=== PATIENT | male | born 1950 | race Caucasian/White ===

== ENCOUNTER 2017-05-27 20:43 | Observation (INO) ==
[2017-05-27 21:06] LABS: Basophils # 0.1 K/mcL (0.0-0.2); Basophils % 0.6 %; Eosinophils # 0.2 K/mcL (0.0-0.6); Eosinophils % 1.5 %; Hematocrit 44.9 % (37.5-50.1); Hemoglobin 14.5 g/dL (12.9-16.9); Immature Granulocytes % 0.4 % (0-4); Lymphocytes # 1.4 K/mcL (0.6-4.6); Mean Corpuscular HGB Conc 32.3 g/dL (31.6-35.5); Mean Corpuscular Hemoglobin 30.5 pg (28.0-33.3); Mean Corpuscular Volume 94.3 fL (83.0-100.0); Mean Platelet Volume 9.4 fL (9.4-12.4); Monocytes # 1.4 K/mcL (0.0-1.3); Neutrophils # 8.4 K/mcL (1.6-8.9); Platelet Count 227 K/mcL (140-400); Red Blood Count 4.76 M/mcL (4.19-5.50); Red Cell Distribution Width 13.7 % (11.5-14.5); Segmented Neutrophils % 73.5 %
[2017-05-27 21:08] LABS: INR 3.7; Prothrombin Time 40.5 Seconds (9.4-12.1)
[2017-05-27 21:10] LABS: VBG HCO3 29 mEq/L (21-27); VBG Ionized Calcium 1.14 mmol/L (1.15-1.35); VBG PCO2 50 mmHg (41-51); VBG PH 7.38 pH Units (7.32-7.42); VBG PO2 52 mmHg (25-50)
[2017-05-27 21:32] LABS: Bilirubin,Urine Negative (Negative); Blood,Urine Moderate (Negative); Clarity,Urine Clear (Clear); Color,Urine Yellow (Yellow); Glucose,Urine (UA) 250 mg/dL (Normal); Ketones,Urine Negative (Negative); Leukocyte Esterase,Urine Negative (Negative); Nitrite,Urine Negative (Negative); PH,Urine 6.5 pH Units (5.0-8.0); Protein,Urine 100 mg/dL (Neg-Trace); Specific Gravity,Urine 1.019 (1.010-1.025); Urobilinogen,Urine Normal (Normal)
[2017-05-27 21:34] LABS: Albumin 3.9 g/dL (3.5-5.7); Albumin/Globulin Ratio 1.2 (1.1-2.2); Bilirubin,Total 0.5 mg/dL (0.3-1.0); Calcium 9.5 mg/dL (8.6-10.3); Globulin 3.2 g/dL (2.4-3.5); Magnesium 1.7 mg/dL (1.6-2.6); Phosphorous 2.9 mg/dL (2.7-4.5); Potassium 3.7 mEq/L (3.5-5.1); Total Protein 7.1 g/dL (6.4-8.9)
[2017-05-27 21:35] LABS: Bacteria,Urine None Seen per hpf (None-Few); Hyaline Casts,Urine None Seen per lpf (None-Few); RBC,Urine 15-30 per hpf (0-3); Squamous Epithelial Cell,Urine None Seen per lpf (None-Few); WBC,Urine 0-3 per hpf (0-3)
--- NOTE | 2017-05-27 21:57 | Emergency Department Note ---
Disposition Clinical Impression: Transient cerebral ischemia Disposition: Admitted As Inpatient Condition: Fair Referrals: Delta Godfrey MD [Primary Care Provider] - Forms: ED Satisfaction Letter Time of Disposition: 23:09 Neuro HPI - General Chief Complaint: ED Neuro Symptoms/Deficit Stated Complaint: Neuro Symptoms Time Seen by Provider: 05/27/17 20:49 Source: patient, EMS Mode of arrival: EMS Limitations: no limitations Nursing Notes Reviewed: Yes Vital Signs Reviewed: Yes - History of Present Illness HPI Narrative: Patient arrives to the ED with the chief complaint of slurred speech and altered mental status with possible stroke alert. Upon arrival to the emergency department. We determined that the patient was not a stroke alert. Patient does have a history of CVA and is on warfarin for an aortic valve replacement. States that at 3 PM today he started noticing he was having some trouble forming his words and getting out what he wanted to say. States his noticed this as well. It continued until about an hour and a half ago when he decided to call EMS. Upon arrival to the emergency department. Patient states that he is starting to feel better but he still feels kind of foggy. He did not notice any changes in his gait, numbness or weakness anywhere. He did not have any chest pain, shortness of breath or changes in vision. He did state that for the last 3 days he has had a headache and neck pain. States it is been moving some furniture and thinks that could have contributed some. Denies any fever or rash. - Related Data Home Medications: Home Medications Medication Instructions Recorded Confirmed Ammonium Lactate [Amlactin] 1 appl TP BID 04/14/17 05/27/17 Atorvastatin Calcium [Lipitor] 20 mg PO QPM 04/14/17 05/27/17 Clopidogrel [Plavix] 75 mg PO DAILY 04/14/17 05/27/17 Furosemide [Lasix] 40 mg PO DAILY 04/14/17 05/27/17 HYDROcodone/Acet 10/325 mg [[place] 1 - 2 tab PO Q6H PRN 04/14/17 05/27/17 10-325 mg] Metoprolol Tartrate [Lopressor] 50 mg PO BID 04/14/17 05/27/17 Nitroglycerin [Nitrostat] 0.4 mg SL Q5M PRN 04/14/17 05/27/17 Nortriptyline [Pamelor] 25 - 50 mg PO HS 04/14/17 05/27/17 Pantoprazole Sodium [Protonix] 40 mg PO BID 04/14/17 05/27/17 Potassium Chloride [Klor-Con 10] 10 meq PO DAILY 04/14/17 05/27/17 Ranolazine [Ranexa] 500 mg PO BID 04/14/17 05/27/17 Subcutaneous Insulin Pump [T:Slim] 0 units MC AD 04/14/17 05/27/17 Valsartan/Hydrochlorothiazide 1 tab PO DAILY 04/14/17 05/27/17 [Diovan Hct 320-25 mg Tablet] Warfarin [Coumadin] 5 mg PO Q48H 04/14/17 05/27/17 Warfarin [Coumadin] 6 mg PO Q48H 04/14/17 05/27/17 cloNIDine HCl [Clonidine HCl] 0.2 mg PO TID PRN 04/14/17 05/27/17 Gabapentin [Neurontin] 300 mg PO TID 05/27/17 05/27/17 Allergies/Adverse Reactions: Allergies Allergy/AdvReac Type Severity Reaction Status Date / Time ampicillin Allergy Hives Verified 04/14/17 11:38 carvedilol [From Coreg] Allergy Swelling Verified 04/14/17 11:38 of Lip/Tongue/Throat Hydromorphone [From Dilaudid] Allergy Vomiting Verified 04/14/17 11:38 sulfamethoxazole AdvReac See Verified 04/14/17 11:38 [From Bactrim] Comments trimethoprim [From Bactrim] AdvReac See Verified 04/14/17 11:38 Comments All systems ED: reviewed and negative except as stated. Constitutional: Reports: weakness (Generalized). Denies: fever Cardiovascular: Denies: chest pain Respiratory: Denies: dyspnea Musculoskeletal: Reports: neck pain. Denies: back pain Neurological: Reports: as per HPI, headache, other (Expressive aphasia) Endocrine: Reports: fatigue Past Medical History - Past Medical History Attestation: Yes The following information was validated with the patient. Source: patient Medical history: Reports: arthritis, atrial fibrillation, CVA, diabetes, GERD, hyperlipidemia, hypertension, myocardial infarction, renal disease, TIA, valvular heart disease Surgical history: Reports: angioplasty/stent, carotid endarterectomy, cholecystectomy, heart valve replacement, orthopedic, other, pacemaker Psychiatric history: Reports: no psych history - Social History Smoking Status: Never smoker Smokeless Tobacco Status: No Alcohol use: Reports: none Drug use: Reports: none Physical Exam - General Limitations: no limitations General appearance: alert, in no apparent distress - Head Head exam: atraumatic, normocephalic, normal inspection - Eye Eye exam: Present: normal appearance, PERRL, EOMI - ENT ENT exam: normal exam, normal oropharynx, mucous membranes moist - Neck Neck exam: Present: normal inspection, full ROM, trachea midline, tenderness ( Paraspinous muscle tenderness bilaterally) - Chest Chest inspection: Present: normal inspection, symmetric chest wall rise - Respiratory Respiratory exam: Present: normal lung sounds bilaterally - Cardiovascular Cardiovascular exam: Present: regular rate, systolic murmur (Aortic click) - Abdominal Exam Abdominal exam: Present: soft, Non-Tender. Absent: tenderness, distention, guarding, rebound, rigidity - Extremities Exam Extremities exam: Present: normal inspection, full ROM. Absent: tenderness, pedal edema - Neurological Exam Neurological exam: Present: alert, oriented X3, CN II-XII intact (May be some trace right facial nasolabial fold flattening, but resolves with testing) - Expanded Neurological Exam Patient oriented to: Present: person, place, time Speech: Present: fluid speech (Patient reported expressive aphasia previously and does take a few moments to start responding but he is having no aphasia currently ) Cranial nerves: EOM function (II, III, IV, ): Normal, facial sensation (V): Normal, facial palsy (VII): Normal, spinal accessory function (XI): Normal, tongue deviation (XII): Normal Cerebellar function: finger to nose: Normal Motor strength - LUE: 5/5 Motor strength - RUE: 5/5 Motor strength - LLE: 5/5 Motor strength - RLE: 5/5 Upper motor neuron exam: casey neglect: Absent bilaterally, pronator drift: Absent bilaterally Sensory exam upper extremity: light touch: Normal Sensory exam lower extremity: light touch: Normal Coma Scale Eye Opening: Spontaneous Coma Scale Motor Response: Obeys Commands Coma Scale Verbal Response: Oriented Coma Scale Total: 15 - Psychiatric Psychiatric exam: Present: normal affect, normal mood - Skin Skin exam: Present: warm, dry, intact, normal color Course Course Narrative: Patient presenting with generalized weakness and expressive aphasia. No stroke alert. We will workup and likely admit. He is on Coumadin for aortic valve replacement, so we will also check INR due to headache and neck pain. Vital Signs Temperature 98.0 F 05/27/17 20:46 Pulse Rate 79 05/27/17 20:46 Respiratory Rate 14 05/27/17 20:46 Blood Pressure 200/104 05/27/17 20:46 O2 Sat by Pulse Oximetry 98 05/27/17 20:46 Temperature 98.0 F 05/27/17 20:57 Pulse Rate 71 05/27/17 23:08 Respiratory Rate 17 05/27/17 23:08 Blood Pressure 189/75 05/27/17 23:08 O2 Sat by Pulse Oximetry 97 05/27/17 23:08 Oxygen Delivery Oxygen Delivery Room Air Neuro Symptoms/Deficit - Medical Records Medical records reviewed: Yes I reviewed the patient's medical records. - Lab Data Lab results reviewed: Yes I reviewed the patient's lab results. Result diagrams: 05/27/17 20:53 05/27/17 20:53 Lab Results 05/27/17 05/27/17 05/27/17 Range/Units 20:53 20:53 20:53 WBC 11.4 H (4.3-11.1) K/mcL RBC 4.76 (4.19-5.50) M/mcL Hgb 14.5 (12.9-16.9) g/dL Hct 44.9 (37.5-50.1) % MCV 94.3 (83.0-100.0) fL MCH 30.5 (28.0-33.3) pg MCHC 32.3 (31.6-35.5) g/dL RDW 13.7 (11.5-14.5) % Plt Count 227 (140-400) K/mcL MPV 9.4 (9.4-12.4) fL Immature Gran % 0.4 (0-4) % Seg Neutrophils % 73.5 % Lymphocytes % 12.0 % Monocytes % 12.0 % Eosinophils % 1.5 % Basophils % 0.6 % Neutrophils # 8.4 (1.6-8.9) K/mcL Lymphocytes # 1.4 (0.6-4.6) K/mcL Monocytes # 1.4 H (0.0-1.3) K/mcL Eosinophils # 0.2 (0.0-0.6) K/mcL Basophils # 0.1 (0.0-0.2) K/mcL PT 40.5 H (9.4-12.1) Seconds INR 3.7 VBG pH (7.32-7.42) pH Units VBG pCO2 (41-51) mmHg VBG pO2 (25-50) mmHg VBG HCO3 (21-27) mEq/L Sodium 140 (136-145) mEq/L Potassium 3.7 (3.5-5.1) mEq/L Chloride 104 (98-107) mEq/L Carbon Dioxide 29 (23-29) mEq/L BUN 26 H (8-23) mg/dL Creatinine 1.91 H (0.70-1.30) mg/dL Est GFR ( Amer) 43 L (> 60) Est GFR (Non-Af Amer) 36 L (> 60) BUN/Creatinine Ratio 14 (6-26) Glucose 128 H (70-105) mg/dL Calculated Osmolality 296 (280-300) Lactic Acid (0.5-2.2) mmol/L Calcium 9.5 (8.6-10.3) mg/dL Venous Ioniz Calcium (1.15-1.35) mmol/L Phosphorus 2.9 (2.7-4.5) mg/dL Magnesium 1.7 (1.6-2.6) mg/dL Total Bilirubin 0.5 (0.3-1.0) mg/dL AST 26 (13-39) Units/L ALT 21 (7-52) Units/L Alkaline Phosphatase 115 H (34-104) Units/L Troponin I (< 0.04) ng/mL Serum Total Protein 7.1 (6.4-8.9) g/dL Albumin 3.9 (3.5-5.7) g/dL Globulin 3.2 (2.4-3.5) g/dL Albumin/Globulin Ratio 1.2 (1.1-2.2) TSH 3.028 (0.340-5.600) mcIU/mL Urine Color (Yellow) Urine Clarity (Clear) Urine pH (5.0-8.0) pH Units Ur Specific [place] (1.010-1.025) Urine Protein (Neg-Trace) mg/dL Urine Glucose (UA) (Normal) mg/dL Urine Ketones (Negative) mg/dL Urine Blood (Negative) Urine Nitrite (Negative) Urine Bilirubin (Negative) Urine Urobilinogen (Normal) mg/dL Ur Leukocyte Esterase (Negative) Urine Microscopic RBC (0-3) per hpf Urine Microscopic WBC (0-3) per hpf Ur Squamous Epith Cells (None-Few) per lpf Urine Bacteria (None-Few) per hpf Hyaline Casts (None-Few) per lpf Ur Culture Indicated? (NO) 05/27/17 05/27/17 05/27/17 Range/Units 20:53 20:53 21:05 WBC (4.3-11.1) K/mcL RBC (4.19-5.50) M/mcL Hgb (12.9-16.9) g/dL Hct (37.5-50.1) % MCV (83.0-100.0) fL MCH (28.0-33.3) pg MCHC (31.6-35.5) g/dL RDW (11.5-14.5) % Plt Count (140-400) K/mcL MPV (9.4-12.4) fL Immature Gran % (0-4) % Seg Neutrophils % % Lymphocytes % % Monocytes % % Eosinophils % % Basophils % % Neutrophils # (1.6-8.9) K/mcL Lymphocytes # (0.6-4.6) K/mcL Monocytes # (0.0-1.3) K/mcL Eosinophils # (0.0-0.6) K/mcL Basophils # (0.0-0.2) K/mcL PT (9.4-12.1) Seconds INR VBG pH 7.38 (7.32-7.42) pH Units VBG pCO2 50 (41-51) mmHg VBG pO2 52 H (25-50) mmHg VBG HCO3 29 H (21-27) mEq/L Sodium (136-145) mEq/L Potassium (3.5-5.1) mEq/L Chloride (98-107) mEq/L Carbon Dioxide (23-29) mEq/L BUN (8-23) mg/dL Creatinine (0.70-1.30) mg/dL Est GFR ( Amer) (> 60) Est GFR (Non-Af Amer) (> 60) BUN/Creatinine Ratio (6-26) Glucose (70-105) mg/dL Calculated Osmolality (280-300) Lactic Acid 1.0 (0.5-2.2) mmol/L Calcium (8.6-10.3) mg/dL Venous Ioniz Calcium 1.14 L (1.15-1.35) mmol/L Phosphorus (2.7-4.5) mg/dL Magnesium (1.6-2.6) mg/dL Total Bilirubin (0.3-1.0) mg/dL AST (13-39) Units/L ALT (7-52) Units/L Alkaline Phosphatase (34-104) Units/L Troponin I 0.03 (< 0.04) ng/mL Serum Total Protein (6.4-8.9) g/dL Albumin (3.5-5.7) g/dL Globulin (2.4-3.5) g/dL Albumin/Globulin Ratio (1.1-2.2) TSH (0.340-5.600) mcIU/mL Urine Color (Yellow) Urine Clarity (Clear) Urine pH (5.0-8.0) pH Units Ur Specific [place] (1.010-1.025) Urine Protein (Neg-Trace) mg/dL Urine Glucose (UA) (Normal) mg/dL Urine Ketones (Negative) mg/dL Urine Blood (Negative) Urine Nitrite (Negative) Urine Bilirubin (Negative) Urine Urobilinogen (Normal) mg/dL Ur Leukocyte Esterase (Negative) Urine Microscopic RBC (0-3) per hpf Urine Microscopic WBC (0-3) per hpf Ur Squamous Epith Cells (None-Few) per lpf Urine Bacteria (None-Few) per hpf Hyaline Casts (None-Few) per lpf Ur Culture Indicated? (NO) 05/27/17 Range/Units 21:25 WBC (4.3-11.1) K/mcL RBC (4.19-5.50) M/mcL Hgb (12.9-16.9) g/dL Hct (37.5-50.1) % MCV (83.0-100.0) fL MCH (28.0-33.3) pg MCHC (31.6-35.5) g/dL RDW (11.5-14.5) % Plt Count (140-400) K/mcL MPV (9.4-12.4) fL Immature Gran % (0-4) % Seg Neutrophils % % Lymphocytes % % Monocytes % % Eosinophils % % Basophils % % Neutrophils # (1.6-8.9) K/mcL Lymphocytes # (0.6-4.6) K/mcL Monocytes # (0.0-1.3) K/mcL Eosinophils # (0.0-0.6) K/mcL Basophils # (0.0-0.2) K/mcL PT (9.4-12.1) Seconds INR VBG pH (7.32-7.42) pH Units VBG pCO2 (41-51) mmHg VBG pO2 (25-50) mmHg VBG HCO3 (21-27) mEq/L Sodium (136-145) mEq/L Potassium (3.5-5.1) mEq/L Chloride (98-107) mEq/L Carbon Dioxide (23-29) mEq/L BUN (8-23) mg/dL Creatinine (0.70-1.30) mg/dL Est GFR ( Amer) (> 60) Est GFR (Non-Af Amer) (> 60) BUN/Creatinine Ratio (6-26) Glucose (70-105) mg/dL Calculated Osmolality (280-300) Lactic Acid (0.5-2.2) mmol/L Calcium (8.6-10.3) mg/dL Venous Ioniz Calcium (1.15-1.35) mmol/L Phosphorus (2.7-4.5) mg/dL Magnesium (1.6-2.6) mg/dL Total Bilirubin (0.3-1.0) mg/dL AST (13-39) Units/L ALT (7-52) Units/L Alkaline Phosphatase (34-104) Units/L Troponin I (< 0.04) ng/mL Serum Total Protein (6.4-8.9) g/dL Albumin (3.5-5.7) g/dL Globulin (2.4-3.5) g/dL Albumin/Globulin Ratio (1.1-2.2) TSH (0.340-5.600) mcIU/mL Urine Color Yellow (Yellow) Urine Clarity Clear (Clear) Urine pH 6.5 (5.0-8.0) pH Units Ur Specific [place] 1.019 (1.010-1.025) Urine Protein 100 H (Neg-Trace) mg/dL Urine Glucose (UA) 250 H (Normal) mg/dL Urine Ketones Negative (Negative) mg/dL Urine Blood Moderate H (Negative) Urine Nitrite Negative (Negative) Urine Bilirubin Negative (Negative) Urine Urobilinogen Normal (Normal) mg/dL Ur Leukocyte Esterase Negative (Negative) Urine Microscopic RBC 15-30 H (0-3) per hpf Urine Microscopic WBC 0-3 (0-3) per hpf Ur Squamous Epith Cells None Seen (None-Few) per lpf Urine Bacteria None Seen (None-Few) per hpf Hyaline Casts None Seen (None-Few) per lpf Ur Culture Indicated? NO (NO) - Radiology Data Radiology results reviewed: Yes I reviewed the patient's radiology results. - EKG Data EKG attestation: Yes I reviewed and interpreted this EKG. EKG results narrative: Paced rhythm, rate 70, QRS 142, QTC 459, left axis deviation NIH Stroke Scale - Level of Consciousness LOC: Alert - LOC Questions LOC Questions: Answers both correctly - LOC Commands LOC Commands: Performs both correctly - Best Gaze Best Gaze: Normal - Visual Visual: No visual loss - Facial Palsy Facial Palsy: Minor asymmetry on smiling, flattened nasolabial fold - Motor Arms Motor Arm-Left: No drift for 10 seconds Motor Arm-Right: No drift for 10 seconds - Motor Legs Motor Leg-Left: No drift for 5 seconds Motor Leg-Right: No drift for 5 seconds - Limb Ataxia Limb Ataxia: Normal, No Ataxia - Sensory Sensory: Normal - Best Language Best Language: No aphasia - Dysarthria Dysarthria: Normal - Extinction and Inattention Extinction and Inattention: Normal - NIHSS Total Score NIHSS Total Score: 1 S.B.A.R. - S.B.A.R. Situation: Demographics, MOA Background: Presenting Complaint, Relevant PMH, Meds, & Allergies Assessment: Vital Signs, Course and respsone to treatment, Exam Concerns, Patient/Family Expectation, Pertinant Lab Results, Outstanding Labs Recommendation: Recommendation based on pending studies, treatments, or consults S.B.A.R. Report Given to: Dr. Rebekah Ojeda Repor Time: 23:09 Attestation Statement - Attestation Attestation: I, Timi Bradford MD, personally evaluated this patient and discussed their management with the resident physician. I reviewed the resident's note and agree with the documented findings, medical decision making, and plan of care. 66-year-old male with a prior history of a stroke presents to the emergency department complaining of an episode of difficulty with speech about 5:30 this evening. Patient states he had been shopping and he came home and was trying to talk to his was having trouble getting out what he wanted to say. She also felt his speech was slurred. He did have some generalized weakness. No chest pain. Patient complains of having a bad headache for the past 3 days. He is on Coumadin. On arrival here the patient states that he feels like his symptoms are improving. He has no slurred speech or facial droop. No focal findings. He is alert and oriented 3 and answers questions appropriately. On examination patient is a well-developed well-nourished well-appearing male in no acute distress. He is alert and oriented 3. There is no cyanosis or diaphoresis. Speech is clear. No facial droop. Equal government guard strength bilaterally. No focal motor or sensory deficits. Breath sounds clear and equal bilaterally. Heart regular rate and rhythm. Abdomen soft and nontender with normal bowel sounds. Labs reviewed. EKG shows a totally paced rhythm. Chest x-ray shows no acute abnormality. Head CT shows no acute intracranial abnormality. The hospitalist, Dr. Welch, was consulted and accepted admission of the patient.
[2017-05-27 22:21] LABS: Thyroid Stimulating Hormone 3.028 mcIU/mL (0.340-5.600)
[2017-05-27] MEDS ORDERED: Aspirin 325 MG TABLET PO ONE (23:08)
[2017-05-28] MEDS ORDERED: *HR* Morphine 2 MG/ML SYRINGE IVP ONE (01:17)
[2017-05-28] MEDS ORDERED: Nitroglycerin 0.4 MG TAB.SUBL SL PRN (01:31)
[2017-05-28] MEDS ORDERED: cloNIDine HCl 0.1 MG TABLET PO PRN (01:31)
--- NOTE | 2017-05-28 02:08 | Internal Med History&Physical ---
Date of Encounter: 05/28/17 Time of Encounter: 02:02 Assessment and Plan (1) Transient cerebral ischemia Current visit: Yes Status: Acute Consult Neurology in AM. Was given aspirin 325 mg x1 upon arrival today. Continue Plavix, lipitor. Unable to get MRI as patient has metal aortic valve repair. INR is supratherapeutic and will hold tomorrow's dose and resume one day later. Qualifiers: Transient cerebral ischemia type: unspecified Qualified Code(s): G45.9 - Transient cerebral ischemic attack, unspecified (2) Hypertension Current visit: Yes Status: Acute Resume home medications and add hydralazine prn as well. Qualifiers: Hypertension type: essential hypertension Qualified Code(s): I10 - Essential (primary) hypertension (3) Atrial fibrillation Current visit: Yes Status: Acute Continue metoprolol. Continue coumadin after holding for one dose since INR elevated at 3.7. Qualifiers: Atrial fibrillation type: unspecified Qualified Code(s): I48.91 - Unspecified atrial fibrillation (4) Chronic kidney disease Current visit: Yes Status: Acute At baseline. Will renally dose medications. Qualifiers: Chronic kidney disease stage: unspecified stage Qualified Code(s): N18.9 - Chronic kidney disease, unspecified (5) History of CVA (cerebrovascular accident) Current visit: Yes Status: Acute (6) IDDM (insulin dependent diabetes mellitus) Current visit: Yes Status: Acute Has insulin pump. Add sliding scale as needed. (7) Hyperlipidemia Current visit: Yes Status: Acute Lipitor Qualifiers: Hyperlipidemia type: unspecified Qualified Code(s): E78.5 - Hyperlipidemia , unspecified (8) History of aortic valve repair Current visit: Yes Status: Acute Continue coumadin (9) Anticoagulated on Coumadin Current visit: Yes Status: Acute (10) Neuropathy Current visit: Yes Status: Acute Ryder, gabapentin Internal Medicine - H&P: HPI Chief complaint: TIA, FLOWERS History of present illness: Mr. Cabrera is a 66 year old male with past medical history of CVA, Afib, HTN , CO, CKD, IDDM, AVR on coumadin presented to ED for acute onset of aphasia. Patient developed headache for past three days that travelled from neck to the posterior head region. He denies any fevers/chills, change in vision, stiffness , light/sound sensitivity. He reports a remote history of migraines. His BP at home was 145/75. Patient felt altered mental status withaphasia around 3 pm today that has completely resolved after about 8-10 hours. He had CBC/BMP that shows creatinine at baseline of 1.8 otherwise unremarkable. INR supratherapeutic at 3.7. SBP elevated 180s-200s. CT head showed no acute process, dd show old right parietal lob infarct. Past Med Surg Social Fam HX - Past Medical History Medical history: arthritis, atrial fibrillation, CVA, diabetes, GERD, hyperlipidemia, hypertension, myocardial infarction, renal disease, TIA, valvular heart disease Psychiatric history: no psych history - Past Surgical History Surgical History: angioplasty/stent, carotid endarterectomy, cholecystectomy, heart valve replacement, orthopedic, other, pacemaker - Social History Smoking Status: Never smoker Smokeless Tobacco Status: No Alcohol use: none Drug use: none - Family History Mother Living Status: Still Living Hx Family Cardiac Disorders: Yes (Heart Disease) Hx Family Endocrine Disorder: Yes (DM) Father Living Status: Cause of : Heart Disease Hx Family Cardiac Disorders: Yes Hx Family Endocrine Disorder: Yes (DM) Internal Medicine - H&P: Meds Ammonium Lactate [Amlactin] 1 appl TP BID 04/14/17 [History] Atorvastatin Calcium [Lipitor] 20 mg PO QPM 04/14/17 [History] Clopidogrel [Plavix] 75 mg PO DAILY 04/14/17 [History] Furosemide [Lasix] 40 mg PO DAILY 04/14/17 [History] HYDROcodone/Acet 10/325 mg [[place] 10-325 mg] 1 - 2 tab PO Q6H PRN 04/14/17 [ History] Metoprolol Tartrate [Lopressor] 50 mg PO BID 04/14/17 [History] Nitroglycerin [Nitrostat] 0.4 mg SL Q5M PRN 04/14/17 [History] Nortriptyline [Pamelor] 25 - 50 mg PO HS 04/14/17 [History] Pantoprazole Sodium [Protonix] 40 mg PO BID 04/14/17 [History] Potassium Chloride [Klor-Con 10] 10 meq PO DAILY 04/14/17 [History] Ranolazine [Ranexa] 500 mg PO BID 04/14/17 [History] Subcutaneous Insulin Pump [T:Slim] 0 units MC AD 04/14/17 [History] Valsartan/Hydrochlorothiazide [Diovan Hct 320-25 mg Tablet] 1 tab PO DAILY 04/14 [History] Warfarin [Coumadin] 5 mg PO Q48H 04/14/17 [History] Warfarin [Coumadin] 6 mg PO Q48H 04/14/17 [History] cloNIDine HCl [Clonidine HCl] 0.2 mg PO TID PRN 04/14/17 [History] Gabapentin [Neurontin] 300 mg PO TID 05/27/17 [History] 3 Allergy/AdvReac Type Severity Reaction Status Date / Time ampicillin Allergy Hives Verified 04/14/17 11:38 carvedilol [From Coreg] Allergy Swelling Verified 04/14/17 11:38 of Lip/Tongue/Throat Hydromorphone [From Dilaudid] Allergy Vomiting Verified 04/14/17 11:38 sulfamethoxazole AdvReac See Verified 04/14/17 11:38 [From Bactrim] Comments trimethoprim [From Bactrim] AdvReac See Verified 04/14/17 11:38 Comments All Systems PM: A 10-system review of systems was performed and is negative for pertinent findings except as documented above in the HPI. - Constitutional Constitutional: no chills, no fever(s), no night sweats - EENT Eyes: no change in vision, no discharge, no pain, no photophobia Nose, mouth and throat: neck pain, no dysphagia, no nasal discharge, no sore throat - Cardiovascular Cardiovascular ROS IM: no chest pain, no diaphoresis, no dyspnea, no lightheadedness, no palpitations, no syncope - Respiratory Respiratory: no cough, no dyspnea, no wheezing, no excessive phlegm production - Gastrointestinal Gastrointestinal: no abdominal pain, no diarrhea, no hematemesis, no hematochezia, no melena, no nausea, no vomiting - Musculoskeletal Musculoskeletal ROS IM: numbness (chronic neuropathy), tingling - Neurological Neurological ROS: headache(s), numbness, no abnormal gait, no abnormal hearing, no abnormal movements, no behavioral changes, no lack of coordination, no memory loss, no tremor(s), no other visual disturbances Additional comments: aphasia - Constitutional Vitals: Temp Pulse Resp BP Pulse Ox 98.8 F 72 17 186/93 97 05/28/17 00:36 05/28/17 00:36 05/28/17 00:36 05/28/17 00:36 05/28/17 01:04 - Head Head exam: Present: atraumatic, normocephalic - Eye Eye exam: Absent: conjunctival injection, EOMI, conjuntiva pink, sclera anicteric Pupils: Present: fixed, miosis - Neck Neck exam general surgery: Present: tenderness, supple, trachea midline. Absent : lymphadenopathy, nuchal rigidity - Respiratory Respiratory exam: Present: CTAB. Absent: accessory muscle use, rales, rhonchi, wheezes - Cardiovascular Cardiovascular exam: Present: RRR, +S1, +S2. Absent: diastolic murmur, gallop, rubs, systolic murmur - Extremities Exam Extremities exam: Present: warm, radial pulses palpable and symmetrical. Absent : calf tenderness, cyanotic, pedal edema Internal Med - H&P Results - Labs CBC & Chem 7: 05/27/17 20:53 05/27/17 20:53
[2017-05-28] MEDS: Subcutaneous Insulin Pump MC SCH (02:15)
[2017-05-28] MEDS ORDERED: Naloxone 0.4 MG/ML INJ IVP PRN (02:24)
[2017-05-28 04:35] LABS: Basophils # 0.1 K/mcL (0.0-0.2); Basophils % 0.8 %; Eosinophils # 0.2 K/mcL (0.0-0.6); Eosinophils % 1.4 %; Hematocrit 43.7 % (37.5-50.1); Hemoglobin 14.3 g/dL (12.9-16.9); Immature Granulocytes % 0.2 % (0-4); Lymphocytes # 1.8 K/mcL (0.6-4.6); Lymphocytes % 17.4 %; Mean Corpuscular HGB Conc 32.7 g/dL (31.6-35.5); Mean Corpuscular Hemoglobin 30.9 pg (28.0-33.3); Mean Corpuscular Volume 94.4 fL (83.0-100.0); Mean Platelet Volume 9.7 fL (9.4-12.4); Monocytes # 1.1 K/mcL (0.0-1.3); Monocytes % 10.8 %; Neutrophils # 7.3 K/mcL (1.6-8.9); Platelet Count 205 K/mcL (140-400); Red Blood Count 4.63 M/mcL (4.19-5.50); Red Cell Distribution Width 13.7 % (11.5-14.5); Segmented Neutrophils % 69.4 %
[2017-05-28 05:07] LABS: Calcium 9.2 mg/dL (8.6-10.3); Potassium 3.5 mEq/L (3.5-5.1)
[2017-05-28] MEDS: Ranolazine 500 MG TAB.ER.12H PO SCH ×2 (07:45→20:37)
[2017-05-28] MEDS: Gabapentin 300 MG CAPSULE PO SCH ×3 (07:45→20:37)
[2017-05-28] MEDS: Ammonium Lactate 30 APPL/225 GM BOTTLE TP SCH ×2 (07:47→20:40)
[2017-05-28] MEDS ORDERED: Furosemide 40 MG TABLET PO SCH (09:00)
[2017-05-28 10:30] LABS: Chol/HDL Ratio 2.8 (0-4.9)
--- NOTE | 2017-05-28 10:45 | Neurology - Consult Note ---
<JuanTatiana daigle - Last Filed: 05/28/17 15:59> Date of Encounter: 05/28/17 Time of Encounter: 10:40 Assessment and Plan (1) Transient cerebral ischemia Current Visit: Yes Status: Acute patient complains of expresisve aphasia with confusion that lasted about six hours. hx of ischemic stroke in 2015. currently, all symptoms resolved. neurological exam unremarkable. recent carotid duplex on 02/24/17 showed bilateral carotid non stenotic plaque. ( hx of right carotid endarterectomy). lipid panel grossly within normal limits. CT head showed chronic atrophy, chronic microvascular ischemia, old right parietal lobe infarct. last A1C 03/11/17 9.1% Plan: continue to monitor. recommend changing statin to high intensity dose. recommend MRA head Qualifiers: Transient cerebral ischemia type: unspecified Qualified Code(s): G45.9 - Transient cerebral ischemic attack, unspecified (2) History of CVA (cerebrovascular accident) Current Visit: Yes Status: Chronic as above (3) Atrial fibrillation Current Visit: Yes Status: Chronic Qualifiers: Atrial fibrillation type: unspecified Qualified Code(s): I48.91 - Unspecified atrial fibrillation (4) Hyperlipidemia Current Visit: Yes Status: Chronic Qualifiers: Hyperlipidemia type: unspecified Qualified Code(s): E78.5 - Hyperlipidemia , unspecified (5) History of aortic valve repair Current Visit: Yes Status: Chronic (6) Anticoagulated on Coumadin Current Visit: Yes Status: Chronic (7) Neuropathy Current Visit: Yes Status: Chronic History of Present Illness Chief complaint: aphasia/AMS HPI: Mr. Cabrera is a 66 year old male with PMHx of ischemic stroke in 2015, right carotid endarterectomy, Afib (on coumadin s/p pacemaker), metal aortic valve replacement, HTN, hx of ME, CKD, DM, GERD, HLD, CKD. Patient arrived to [facility], [place] overnight with chief complaint of expressive aphasia. He stated that around 5:15pm the night prior to arrival, he was having expressive aphasia while talking with his , along with slurred speech. He was also intermittently confused and couldn't recall simple things, such as his son in law's name. These symptoms resolved around 11:30pm. He denies facial drooping, weakness, incontinence. he denies nausea, vomiting, diarrhea, fever, chills, chest pain, shortness of breath. he currently reports a mild headache. Past Med Surg Social Fam HX - Past Medical History Medical history: arthritis, atrial fibrillation, CVA, diabetes, GERD, hyperlipidemia, hypertension, myocardial infarction, renal disease, TIA, valvular heart disease Psychiatric history: no psych history - Past Surgical History Surgical History: angioplasty/stent, carotid endarterectomy, cholecystectomy, heart valve replacement, orthopedic, other, pacemaker - Social History Smoking Status: Never smoker Smokeless Tobacco Status: No Alcohol use: none Drug use: none - Family History Mother Living Status: Still Living Hx Family Cardiac Disorders: Yes (Heart Disease) Hx Family Endocrine Disorder: Yes (DM) Father Living Status: Cause of : Heart Disease Hx Family Cardiac Disorders: Yes Hx Family Endocrine Disorder: Yes (DM) Medications and Allergies Ammonium Lactate [Amlactin] 1 appl TP BID 04/14/17 [History] Clopidogrel [Plavix] 75 mg PO DAILY 04/14/17 [History] Furosemide [Lasix] 40 mg PO DAILY 04/14/17 [History] HYDROcodone/Acet 10/325 mg [Friend 10-325 mg] 1 - 2 tab PO Q6H PRN 04/14/17 [ History] Metoprolol Tartrate [Lopressor] 50 mg PO BID 04/14/17 [History] Nitroglycerin [Nitrostat] 0.4 mg SL Q5M PRN 04/14/17 [History] Nortriptyline [Pamelor] 25 - 50 mg PO HS 04/14/17 [History] Pantoprazole Sodium [Protonix] 40 mg PO BID 04/14/17 [History] Potassium Chloride [Klor-Con 10] 10 meq PO DAILY 04/14/17 [History] Ranolazine [Ranexa] 500 mg PO BID 04/14/17 [History] Subcutaneous Insulin Pump [T:Slim] 0 units MC AD 04/14/17 [History] Valsartan/Hydrochlorothiazide [Diovan Hct 320-25 mg Tablet] 1 tab PO DAILY 04/14 [History] Warfarin [Coumadin] 5 mg PO Q48H 04/14/17 [History] Warfarin [Coumadin] 6 mg PO Q48H 04/14/17 [History] cloNIDine HCl [Clonidine HCl] 0.2 mg PO TID PRN 04/14/17 [History] Gabapentin [Neurontin] 300 mg PO TID 05/27/17 [History] Atorvastatin [Lipitor] 40 mg PO HS #30 tablet 05/28/17 [Rx] 3 Allergy/AdvReac Type Severity Reaction Status Date / Time ampicillin Allergy Hives Verified 04/14/17 11:38 carvedilol [From Coreg] Allergy Swelling Verified 04/14/17 11:38 of Lip/Tongue/Throat Hydromorphone [From Dilaudid] Allergy Vomiting Verified 04/14/17 11:38 sulfamethoxazole AdvReac See Verified 04/14/17 11:38 [From Bactrim] Comments trimethoprim [From Bactrim] AdvReac See Verified 04/14/17 11:38 Comments All Systems: A 10-system review of systems was performed and is negative for pertinent findings except as documented above in the HPI. Physical Examination - Vital Signs Vital Signs: Initial Vital Signs Temp Pulse Resp BP Pulse Ox 98.0 F 79 14 200/104 98 05/27/17 20:46 05/27/17 20:46 05/27/17 20:46 05/27/17 20:46 05/27/17 20:46 - Constitutional General appearance: comfortable - Neurologic Sensorimotor examination: intact Detailed motor examination: grossly full strength in all extremities Motor examination - right side: 5/5: deltoids, biceps, triceps, wrist flexion, wrist extension, contact lens blocker, hip flexors, tibialis Anterior, quadriceps, toe extension (EHL), plantarflexion Motor examination - left side: 5/5: deltoids, biceps, triceps, wrist flexion, wrist extension, hip flexors, contact lens blocker, quadriceps, tibialis Anterior, toe extension (EHL) Detailed sensory examination: intact Reflex and gait examination: normal gait Reflexes: Brachioradialis: 2+, Patella: 2+, Achilles: 2+ Mental Status Examination: awake, alert, oriented to person, oriented to place, oriented to time, follows commands appropriately, answers questions appropriately, no agnosia, no aphasia, no aproxia, lucid, makes eye contact Cranial nerve examination: visual ross intact Cerebellar examination: no gait ataxia, no truncal ataxia Results - Laboratory Findings CBC and BMP: 05/28/17 03:35 05/28/17 03:35 Abnormal lab findings: Abnormal lab results PT 40.5 Seconds (9.4-12.1) H 05/27/17 20:53 VBG pO2 52 mmHg (25-50) H 05/27/17 21:05 VBG HCO3 29 mEq/L (21-27) H 05/27/17 21:05 BUN 26 mg/dL (8-23) H 05/28/17 03:35 Creatinine 1.81 mg/dL (0.70-1.30) H 05/28/17 03:35 Est GFR ( Amer) 46 (> 60) L 05/28/17 03:35 Est GFR (Non-Af Amer) 38 (> 60) L 05/28/17 03:35 Glucose 146 mg/dL (70-105) H 05/28/17 03:35 POC Glucose 126 (58-89) H 05/27/17 20:47 Venous Ioniz Calcium 1.14 mmol/L (1.15-1.35) L 05/27/17 21:05 Alkaline Phosphatase 115 Units/L (34-104) H 05/27/17 20:53 HDL Cholesterol 36 mg/dL (40-59) L 05/28/17 03:35 Urine Protein 100 mg/dL (Neg-Trace) H 05/27/17 21:25 Urine Glucose (UA) 250 mg/dL (Normal) H 05/27/17 21:25 Urine Blood Moderate (Negative) H 05/27/17 21:25 Urine Microscopic RBC 15-30 per hpf (0-3) H 05/27/17 21:25 Consult Discharge Plan - Plan Instructions: Atorvastatin (By mouth), Transient Ischemic Attack (DC) Additional Instructions: Please follow up with your primary care provider in the next 7-10 days for recheck. Please take your normal medications as directed, we have increased your cholesterol medicine and it is at your pharmacy. Please return to your normal activities as tolerated, return to your normal diet as tolerated. Return to the ER as needed for any other problems or concerns, or if your symptoms return or worsen. Referrals: Delta Godfrey MD [Primary Care Provider] - 06/03/17 9:45 am Prescriptions: Atorvastatin [Lipitor] 40 mg PO HS #30 tablet <Cas Hernandez - Last Filed: 05/28/17 16:19> Date of Encounter: 05/28/17 Time of Encounter: 16:07 Assessment and Plan (1) Left sided cerebral hemisphere cerebrovascular accident (CVA) Current Visit: Yes Status: Acute Patient does have subtle weakness of the right upper extremity and right lower extremity. Combining this fact along with the expressive aphasia initially I would expect that he is experiencing some left hemispheric dysfunction. He is had waxing and waning elevations in his blood pressure since admission with some cervical systolic readings as high as 200. I suspect he may have experienced a vasospastic event in the left cerebral hemisphere. He also had a fairly intense headache associated with this. This may have been migrainous perhaps simply associated with hypertension or the infarction itself. In any regard I would like to get neuroimaging studies of the carotids and intracranial vasculature. Particularly because he has experienced a very intense headache which is not experienced in many years. I would like to rule out the possibility of intracranial aneurysm. Unfortunately he is not a candidate for MRI or MRA because of a mechanical aortic valve. He is also currently on Plavix as well as warfarin. His INR was supratherapeutic. Ultimately he may not be much else to offer from a neurologic perspective other than aggressive management of his hypertension. History of Present Illness HPI: Mr. Cabrera is a 66 year old male who was seen and examined independently, and along with Dr. Gillespie. Interventions were stated he did have a fairly intense headache associated with this. He denied any specific complaint of weakness however defined subtle signs of weakness of the right upper and right lower extremity. His speech deficits have all improved. I did review the CT scan of the brain which does not reveal the old right frontal infarct. I see no evidence of a new left hemispheric abnormality. All Systems: A 10-system review of systems was performed and is negative for pertinent findings except as documented above in the HPI. Review of Systems: Consistent with the history of present illness otherwise negative. Physical Examination - Vital Signs Vital Signs: Initial Vital Signs Temp Pulse Resp BP Pulse Ox 98.0 F 79 14 200/104 98 05/27/17 20:46 05/27/17 20:46 05/27/17 20:46 05/27/17 20:46 05/27/17 20:46 - Neurologic Detailed motor examination: full strength in all major muscle groups Motor examination - right side: 4/5: deltoids, biceps, triceps, contact lens blocker, hip flexors, 5/5: wrist flexion, wrist extension, tibialis Anterior, quadriceps, toe extension (EHL), plantarflexion Motor examination - left side: 10/11: deltoids, biceps, triceps, wrist flexion, wrist extension, hip flexors, contact lens blocker, quadriceps, tibialis Anterior, toe extension (EHL), plantarflexion Mental Status Examination: awake, alert, oriented to person, oriented to place, oriented to time, follows commands appropriately, answers questions appropriately, no agnosia, no aphasia, no aproxia Cranial nerve examination: PERRL, EOMI, visual ross intact, corneal reflexes brisk symmetrically, sensory to face intact, mastication intact, no facial asymmetry is present, no dysarthria, hearing is intact symmetrically, soft palate elevates bilaterally upon phonation, gag reflex intact, flexes SCM and trapezius muscles symmetrically with full power, tongue protrudes midline, no atrophy or facial fasiculations present Cerebellar examination: no dysmetria, performs finger to nose and heel to gomez symmetrically without ataxia, no gait ataxia, no truncal ataxia, no difficulty with rapid alternating movements Results - Laboratory Findings CBC and BMP: 05/28/17 03:35 05/28/17 03:35 Abnormal lab findings: Abnormal lab results PT 40.5 Seconds (9.4-12.1) H 05/27/17 20:53 VBG pO2 52 mmHg (25-50) H 05/27/17 21:05 VBG HCO3 29 mEq/L (21-27) H 05/27/17 21:05 BUN 26 mg/dL (8-23) H 05/28/17 03:35 Creatinine 1.81 mg/dL (0.70-1.30) H 05/28/17 03:35 Est GFR ( Amer) 46 (> 60) L 05/28/17 03:35 Est GFR (Non-Af Amer) 38 (> 60) L 05/28/17 03:35 Glucose 146 mg/dL (70-105) H 05/28/17 03:35 POC Glucose 126 (58-89) H 05/27/17 20:47 Hemoglobin A1c 9.3 % (-5.6) H 05/28/17 03:35 Venous Ioniz Calcium 1.14 mmol/L (1.15-1.35) L 05/27/17 21:05 Alkaline Phosphatase 115 Units/L (34-104) H 05/27/17 20:53 HDL Cholesterol 36 mg/dL (40-59) L 05/28/17 03:35 Urine Protein 100 mg/dL (Neg-Trace) H 05/27/17 21:25 Urine Glucose (UA) 250 mg/dL (Normal) H 05/27/17 21:25 Urine Blood Moderate (Negative) H 05/27/17 21:25 Urine Microscopic RBC 15-30 per hpf (0-3) H 05/27/17 21:25
[2017-05-28 12:55] LABS: Hemoglobin A1C 9.3 %
--- NOTE | 2017-05-28 13:45 | Discharge Summary ---
Date of Encounter: 05/28/17 Time of Encounter: 10:10 - Discharge Diagnosis (1) Transient cerebral ischemia Priority: Primary Status: Acute Comments: Patient presented to the emergency department with 6 hour history of garbled speech and confusion. He had no other neurological deficits or symptoms. All symptoms have resolved at this time. He denies headache, blurred vision, dizziness, neck pain, abdominal pain nausea or vomiting. He denies chest pain or shortness of breath. Patient has been evaluated by neurology and Dr. Hernandez appreciated some slight weakness on right upper extremity. CTA head and neck will be performed in the morning, patient cannot have MRI due to mechanical valve. Head CT 05/27/17 20:53 IMPRESSION: No acute intracranial abnormality. Diffuse atrophic changes with findings suggesting chronic microvascular ischemia and an old right anterior parietal lobe infarct. D/ / Cas Lai MD / Cas Lai MD Interpreting Provider: Cas Lai MD Qualifiers: Transient cerebral ischemia type: unspecified Qualified Code(s): G45.9 - Transient cerebral ischemic attack, unspecified (2) Hypertension Priority: Secondary Status: Chronic Comments: Chronic. Continue home medications. Qualifiers: Hypertension type: essential hypertension Qualified Code(s): I10 - Essential (primary) hypertension (3) Atrial fibrillation Priority: Secondary Status: Chronic Comments: Chronic. Patient is anticoagulated. Patient has a pacemaker, as well as prior lesion. He denies chest pain. Qualifiers: Atrial fibrillation type: unspecified Qualified Code(s): I48.91 - Unspecified atrial fibrillation (4) Chronic kidney disease Priority: Secondary Status: Chronic Comments: Serum creatinine 1.81, GFR 46. Patient states this is better than normal. It is improved since admission. Patient needs to have CTA of head and neck in the morning. Benefits outweigh the risks of testing. Patient will have IV fluid hydration overnight, Lasix has been stopped, patient will have Mucomyst 600 mg by mouth twice a day 4 doses. I discussed the case with Dr. Saeed from radiology, as well as Dr. Campos, who is patient's resident care assistant. Qualifiers: Chronic kidney disease stage: stage 3 (moderate) Qualified Code(s): N18.3 - Chronic kidney disease, stage 3 (moderate) (5) History of CVA (cerebrovascular accident) Priority: Secondary Status: Chronic Comments: Past history. Patient takes aspirin and Plavix. No deficits. (6) IDDM (insulin dependent diabetes mellitus) Priority: Secondary Status: Chronic Comments: Chronic. Continue home medications and Accu-Chek regimen. (7) Hyperlipidemia Priority: Secondary Status: Chronic Comments: Chronic. Continue home medications. Lipid panels within normal limits. Qualifiers: Hyperlipidemia type: unspecified Qualified Code(s): E78.5 - Hyperlipidemia , unspecified (8) History of aortic valve repair Priority: Secondary Status: Chronic Comments: Per patient's past history. Patient is anticoagulated with Coumadin and Plavix. (9) Anticoagulated on Coumadin Priority: Secondary Status: Chronic Comments: Patient anticoagulated on Coumadin for aortic valve repair and A. fib. INR super therapeutic at 3.7. Hold dose tonight. Redraw in 2 days. Continue regular dose and follow with primary care. (10) Neuropathy Priority: Secondary Status: Chronic Comments: Continue [place]bew[place] and gabapentin. - Discharge Medications Prescriptions: Atorvastatin [Lipitor] 40 mg PO HS #30 tablet Home Medications: Ammonium Lactate [Amlactin] 1 appl TP BID 04/14/17 [History] Clopidogrel [Plavix] 75 mg PO DAILY 04/14/17 [History] Furosemide [Lasix] 40 mg PO DAILY 04/14/17 [History] HYDROcodone/Acet 10/325 mg [[place] 10-325 mg] 1 - 2 tab PO Q6H PRN 04/14/17 [ History] Metoprolol Tartrate [Lopressor] 50 mg PO BID 04/14/17 [History] Nitroglycerin [Nitrostat] 0.4 mg SL Q5M PRN 04/14/17 [History] Nortriptyline [Pamelor] 25 - 50 mg PO HS 04/14/17 [History] Pantoprazole Sodium [Protonix] 40 mg PO BID 04/14/17 [History] Potassium Chloride [Klor-Con 10] 10 meq PO DAILY 04/14/17 [History] Ranolazine [Ranexa] 500 mg PO BID 04/14/17 [History] Subcutaneous Insulin Pump [T:Slim] 0 units MC AD 04/14/17 [History] Valsartan/Hydrochlorothiazide [Diovan Hct 320-25 mg Tablet] 1 tab PO DAILY 04/14 [History] Warfarin [Coumadin] 5 mg PO Q48H 04/14/17 [History] Warfarin [Coumadin] 6 mg PO Q48H 04/14/17 [History] cloNIDine HCl [Clonidine HCl] 0.2 mg PO TID PRN 04/14/17 [History] Gabapentin [Neurontin] 300 mg PO TID 05/27/17 [History] Atorvastatin [Lipitor] 40 mg PO HS #30 tablet 05/28/17 [Rx] Allergies/Adverse Reactions: 3 Allergy/AdvReac Type Severity Reaction Status Date / Time ampicillin Allergy Hives Verified 04/14/17 11:38 carvedilol [From Coreg] Allergy Swelling Verified 04/14/17 11:38 of Lip/Tongue/Throat Hydromorphone [From Dilaudid] Allergy Vomiting Verified 04/14/17 11:38 sulfamethoxazole AdvReac See Verified 04/14/17 11:38 [From Bactrim] Comments trimethoprim [From Bactrim] AdvReac See Verified 04/14/17 11:38 Comments Date of admission: 05/28/17 00:14 Primary care physician: Delta Godfrey MD Consults: 05/28/17 05:53 Consult to Neurology [CONS] Routine Consulting Provider: Neurology [facility] Reason for Consult: TIA Call Completed: No Discharging clinician: Lorenza Greer Anticipated date of discharge: 05/28/17 - Patient Status Disposition: Home, Self-Care Condition: Good Functional capacity at discharge: independent ambulation Overall status at discharge: patient is back to baseline - Discharge Instructions Instructions: Atorvastatin (By mouth), Transient Ischemic Attack (DC) Follow Up With: Delta Godfrey MD [Primary Care Provider] - 06/03/17 9:45 am Additional Instructions: Please follow up with your primary care provider in the next 7-10 days for recheck. Please take your normal medications as directed, we have increased your cholesterol medicine and it is at your pharmacy. Please return to your normal activities as tolerated, return to your normal diet as tolerated. Return to the ER as needed for any other problems or concerns, or if your symptoms return or worsen. - Diet and Activity Activity: increase activity as tolerated Diet: diabetic diet, low fat, low cholesterol, low salt diet Hospital course: Mr. Cabrera is a 66 year old male with pmh of CVA, a-fib, aortic valve replacement, hypertension, hyperlipidemia, diabetes, and neuropathy. He presented to the emergency department with 6 hour history of dysarthria and confusion. Symptoms have resolved. CT head was negative. Chest x-ray is negative. Labs are stable and within normal limits. Vital signs are stable and within normal limits. Patient has been evaluated by neurology. He has no deficits and all symptoms have resolved. Patient is stable and appropriate for discharge. - Time Spent with Patient Total time spent providing and/or coordinating discharge services: Less than 30 minutes - Constitutional Vitals: Temp Pulse Resp BP Pulse Ox 99.0 F 73 16 162/69 96 05/28/17 11:15 05/28/17 11:15 05/28/17 11:15 05/28/17 11:15 05/28/17 11:15 General appearance: Present: cooperative, pleasant, no acute distress, answers questions appropriately - Head Head exam: Present: atraumatic, normal inspection, normocephalic - Eye Eye exam: Present: normal appearance, conjuntiva pink, sclera anicteric - Neck Neck exam general surgery: Present: normal inspection, supple, trachea midline. Absent: lymphadenopathy, tenderness - Respiratory Respiratory exam: Present: CTAB. Absent: accessory muscle use, chest wall tenderness, rales, respiratory distress, rhonchi, wheezes - Cardiovascular Cardiovascular exam: Present: RRR, +S1, +S2. Absent: diastolic murmur, gallop, rubs, systolic murmur - GI/Abdominal GI/Abdominal exam: Present: normal bowel sounds, soft, no peritoneal signs. Absent: distended, hepatomegaly, tenderness - Extremities Exam Extremities exam: Present: normal capillary refill, normal inspection, warm, radial pulses palpable and symmetrical. Absent: calf tenderness, cyanotic, pedal edema, tenderness - Neurological Exam Neurological exam: Present: alert, CN II-XII intact, motor sensory deficit, normal gait, oriented X3, no focal deficits, strengths equal and symetr throughout. Absent: pronater drift, facial droop, speech deficit - Skin Skin exam: Present: dry, intact, normal color, warm. Absent: rash
[2017-05-28] MEDS ORDERED: 0.9 % Sodium Chloride 1,000 ML IVC SCH (16:30)
[2017-05-28] MEDS: *HR* HYDROcodone/Acet 10/325 mg TABLET PO PRN ×2 (16:41→22:58)
--- NOTE | 2017-05-28 20:15 | Electrocardiograph Report ---
[place] [id number] Test Date: 2017-05-27 Pat Name: Ezra Cabrera Department: 104 Room: 3B55 Gender: M Hop Separator: OMER : 1950 Requested By: Juan J Anderson Order Number: [id number] Reading MD: Singh Flores MD Measurements Intervals [place] Rate: 70 P: OR: 0 QRS: -86 QRSD: 142 T: 85 QT: 438 QTc: 459 Interpretive Statements [employer]LECTRON[employer]EN[employer]IC[employer] PACEMAKER Electronically Signed On 05-28-2017 20:14:19 EST by Singh Flores MD
[2017-05-28] MEDS: *HR* Acetylcysteine 20% 600 MG/3 ML ORAL SYRINGE PO SCH (20:37)
[2017-05-29] MEDS: Subcutaneous Insulin Pump MC SCH (01:59)
[2017-05-29 06:11] LABS: Calcium 8.8 mg/dL (8.6-10.3); Potassium 3.7 mEq/L (3.5-5.1)
[2017-05-29] MEDS: *HR* HYDROcodone/Acet 10/325 mg TABLET PO PRN (07:42)
[2017-05-29] MEDS: Gabapentin 300 MG CAPSULE PO SCH (07:42)
[2017-05-29] MEDS: *HR* Acetylcysteine 20% 600 MG/3 ML ORAL SYRINGE PO SCH (07:42)
[2017-05-29] MEDS: Ranolazine 500 MG TAB.ER.12H PO SCH (07:42)
[2017-05-29] MEDS: Ammonium Lactate 30 APPL/225 GM BOTTLE TP SCH (07:43)
--- NOTE | 2017-05-29 08:58 | Neurology Progress Note ---
Date of Encounter: 05/29/17 Time of Encounter: 08:56 Assessment and Plan (1) Left sided cerebral hemisphere cerebrovascular accident (CVA) Current Visit: Yes Status: Acute Suspect left cerebral hemispheric event likely vasospastic in nature associated with extreme elevations in blood pressure. He has not had any further episodes of speech arrest since admission. Certainly he will require aggressive management of his hypertension. He will also need long-term anticoagulation due to the mechanical heart valve and atrial fibrillation. From my perspective as a neurologist and I convinced that he needs antiplatelet therapy as well. Risk factor management is always paramount. I will reevaluate him at your request. Subjective Interval history: The chart was reviewed, the patient was seen and examined. He has had no further episodes of speech arrest overnight. Denies any additional headaches. He feels back to his baseline. The CTA imaging studies of the head and neck did not reveal any evidence of any hemodynamically significant stenosis, or aneurysm. Ultimately now I continue to suspect that he must of had a vasospastic event involving the left cerebral hemisphere as a result of extremely elevated blood pressure. He had one reading over night with a systolic in the 170s. Ultimately he will still have to be on anticoagulation because of his history of atrial fibrillation and the mechanical heart valve. Objective - Constitutional Vitals: Temp Pulse Resp BP Pulse Ox 97.8 F 73 19 150/77 97 05/29/17 07:28 05/29/17 07:28 05/29/17 07:28 05/29/17 07:28 05/29/17 07:28 - Neurological Exam Motor examination - right side: 4/5: deltoids, biceps, triceps, accounting administrative assistant, hip flexors, tibialis Anterior, quadriceps, toe extension (EHL), plantarflexion Motor examination - left side: 5/5: deltoids, biceps, triceps, wrist flexion, wrist extension, hip flexors, accounting administrative assistant, quadriceps, tibialis Anterior, toe extension (EHL), plantarflexion Sensation intact: Present: intact Reflex and gait examination: normal gait Mental Status Examination: Present: awake, alert, oriented to person, oriented to place, oriented to time, follows commands appropriately, answers questions appropriately, no agnosia, no aphasia, no aproxia Cranial nerve examination: Present: PERRL, EOMI, visual ross intact, corneal reflexes brisk symmetrically, sensory to face intact, mastication intact, no facial asymmetry is present, no dysarthria, hearing is intact symmetrically, soft palate elevates bilaterally upon phonation, gag reflex intact, flexes SCM and trapezius muscles symmetrically with full power, tongue protrudes midline, no atrophy or facial fasiculations present Cerebellar examination: Present: no dysmetria, performs finger to nose and heel to gomez symmetrically without ataxia, no gait ataxia, no truncal ataxia, no difficulty with rapid alternating movements Results - Laboratory Findings CBC and BMP: 05/28/17 03:35 05/29/17 05:34 Abnormal lab findings: Abnormal lab results PT 40.5 Seconds (9.4-12.1) H 05/27/17 20:53 VBG pO2 52 mmHg (25-50) H 05/27/17 21:05 VBG HCO3 29 mEq/L (21-27) H 05/27/17 21:05 Chloride 108 mEq/L (98-107) H 05/29/17 05:34 BUN 30 mg/dL (8-23) H 05/29/17 05:34 Creatinine 1.84 mg/dL (0.70-1.30) H 05/29/17 05:34 Est GFR ( Amer) 45 (> 60) L 05/29/17 05:34 Est GFR (Non-Af Amer) 37 (> 60) L 05/29/17 05:34 Glucose 53 mg/dL (70-105) L 05/29/17 05:34 POC Glucose 241 (58-89) H 05/28/17 16:45 Hemoglobin A1c 9.3 % (-5.6) H 05/28/17 03:35 Venous Ioniz Calcium 1.14 mmol/L (1.15-1.35) L 05/27/17 21:05 Alkaline Phosphatase 115 Units/L (34-104) H 05/27/17 20:53 HDL Cholesterol 36 mg/dL (40-59) L 05/28/17 03:35 Urine Protein 100 mg/dL (Neg-Trace) H 05/27/17 21:25 Urine Glucose (UA) 250 mg/dL (Normal) H 05/27/17 21:25 Urine Blood Moderate (Negative) H 05/27/17 21:25 Urine Microscopic RBC 15-30 per hpf (0-3) H 05/27/17 21:25 Consult Discharge Plan - Plan Instructions: Atorvastatin (By mouth), Transient Ischemic Attack (DC) Additional Instructions: Please follow up with your primary care provider in the next 7-10 days for recheck. Please take your normal medications as directed, we have increased your cholesterol medicine and it is at your pharmacy. Please return to your normal activities as tolerated, return to your normal diet as tolerated. Return to the ER as needed for any other problems or concerns, or if your symptoms return or worsen. Referrals: Delta Godfrey MD [Primary Care Provider] - 06/03/17 9:45 am Prescriptions: Atorvastatin [Lipitor] 40 mg PO HS #30 tablet
--- NOTE | 2017-05-29 10:52 | Nephrology Consult Note ---
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 Renal fct stable. Creat 1.84. Documented urine output 720cc. Avoid nephrotoxins. If discharged home, will follow in office with labs. Qualifiers: Chronic kidney disease stage: stage 3 (moderate) Qualified Code(s): N18.3 - Chronic kidney disease, stage 3 (moderate) History of Present Illness - Reason for Consult Chronic Kidney Disease - History of Present Illness Mr. Cabrera is a 66 year old male known to practice with CKD 3-4 in setting of DM and HTN. Other PMH- arthritis, atrial fibrillation, CVA, diabetes, GERD, hyperlipidemia, hypertension, myocardial infarction, renal disease, TIA, valvular heart disease, angioplasty/stent, carotid endarterectomy, cholecystectomy, heart valve replacement, orthopedic, pacemaker. Consulted post CTA head and neck with contrast in setting of stroke like symptoms on Friday; slurred speech and mental status changes that have since resolved. At consult today, patient is alert and orienting, no extremity weakness. States to be discharged home today. Renal fct has been stable following CT contrast. Past Med Surg Social Fam HX - Past Medical History Medical history: arthritis, atrial fibrillation, CVA, diabetes, GERD, hyperlipidemia, hypertension, myocardial infarction, renal disease, TIA, valvular heart disease Psychiatric history: no psych history - Past Surgical History Surgical History: angioplasty/stent, carotid endarterectomy, cholecystectomy, heart valve replacement, orthopedic, other, pacemaker - Social History Smoking Status: Never smoker Smokeless Tobacco Status: No Alcohol use: none Drug use: none - Family History Mother Living Status: Still Living Hx Family Cardiac Disorders: Yes (Heart Disease) Hx Family Endocrine Disorder: Yes (DM) Father Living Status: Cause of : Heart Disease Hx Family Cardiac Disorders: Yes Hx Family Endocrine Disorder: Yes (DM) Medications and Allergies Ammonium Lactate [Amlactin] 1 appl TP BID 04/14/17 [History] Clopidogrel [Plavix] 75 mg PO DAILY 04/14/17 [History] Furosemide [Lasix] 40 mg PO DAILY 04/14/17 [History] HYDROcodone/Acet 10/325 mg [[place] 10-325 mg] 1 - 2 tab PO Q6H PRN 04/14/17 [ History] Metoprolol Tartrate [Lopressor] 50 mg PO BID 04/14/17 [History] Nitroglycerin [Nitrostat] 0.4 mg SL Q5M PRN 04/14/17 [History] Nortriptyline [Pamelor] 25 - 50 mg PO HS 04/14/17 [History] Pantoprazole Sodium [Protonix] 40 mg PO BID 04/14/17 [History] Potassium Chloride [Klor-Con 10] 10 meq PO DAILY 04/14/17 [History] Ranolazine [Ranexa] 500 mg PO BID 04/14/17 [History] Subcutaneous Insulin Pump [T:Slim] 0 units MC AD 04/14/17 [History] Valsartan/Hydrochlorothiazide [Diovan Hct 320-25 mg Tablet] 1 tab PO DAILY 04/14 [History] Warfarin [Coumadin] 5 mg PO Q48H 04/14/17 [History] Warfarin [Coumadin] 6 mg PO Q48H 04/14/17 [History] cloNIDine HCl [Clonidine HCl] 0.2 mg PO TID PRN 04/14/17 [History] Gabapentin [Neurontin] 300 mg PO TID 05/27/17 [History] Atorvastatin [Lipitor] 40 mg PO HS #30 tablet 05/28/17 [Rx] 3 Allergy/AdvReac Type Severity Reaction Status Date / Time ampicillin Allergy Hives Verified 04/14/17 11:38 carvedilol [From Coreg] Allergy Swelling Verified 04/14/17 11:38 of Lip/Tongue/Throat Hydromorphone [From Dilaudid] Allergy Vomiting Verified 04/14/17 11:38 sulfamethoxazole AdvReac See Verified 04/14/17 11:38 [From Bactrim] Comments trimethoprim [From Bactrim] AdvReac See Verified 04/14/17 11:38 Comments Review of Systems All Systems: reviewed and no additional remarkable complaints except as stated Exam - Vital Signs Vital signs: Initial Vital Signs Temp Pulse Resp BP Pulse Ox 98.0 F 79 14 200/104 98 05/27/17 20:46 05/27/17 20:46 05/27/17 20:46 05/27/17 20:46 05/27/17 20:46 Vital Signs - Last 8 Hours Temp Pulse Resp BP Pulse Ox 05/29/17 07:28 97.8 F 73 19 150/77 97 05/29/17 05:42 98.6 F 72 14 176/87 05/29/17 03:00 97.8 F 71 14 149/74 Intake and Output 05/28/17 05/29/17 05/29/17 23:59 07:59 15:59 Intake Total 600 / 600 Balance 600 / 600 Intake: Oral 600 / 600 Other: Meal Breakfast Percent of Meal Consumed 100% # Voids 1 Weight 105.9 kg Blood Glucose* 193 160 Patient Weight 05/29/17 23:59 Weight 105.9 kg - General Appearance General appearance: well-developed, well-nourished, appears started age EENT: mucous membranes moist Neck: no JVD Respiratory: clear Cardiology: no edema, regular rate, regular rhythm Gastrointestinal: normoactive bowel sounds, no tenderness Integumentary: warm and dry Neurologic: alert and oriented x3 Psychiatric: mood/affect appropriate, cooperative Results - Lab Results 05/28/17 03:35 05/29/17 05:34 Most recent lab results Calcium 8.8 mg/dL (8.6-10.3) 05/29/17 05:34 Phosphorus 2.9 mg/dL (2.7-4.5) 05/27/17 20:53 Magnesium 1.7 mg/dL (1.6-2.6) 05/27/17 20:53 Consult Discharge Plan - Plan Instructions: Atorvastatin (By mouth), Transient Ischemic Attack (DC) Additional Instructions: Please follow up with your primary care provider in the next 7-10 days for recheck. Please take your normal medications as directed, we have increased your cholesterol medicine and it is at your pharmacy. Please return to your normal activities as tolerated, return to your normal diet as tolerated. Return to the ER as needed for any other problems or concerns, or if your symptoms return or worsen. Referrals: Delta Godfrey MD [Primary Care Provider] - 06/03/17 9:45 am Prescriptions: Atorvastatin [Lipitor] 40 mg PO HS #30 tablet
[2017-05-29 11:09] VITALS: BP 138/82
--- NOTE | 2017-05-29 12:16 | Internal Med Progress Note ---
Date of Encounter: 05/29/17 Time of Encounter: 08:50 - Assessment and plan (1) Transient cerebral ischemia Current Visit: Yes Status: Acute Assessment and plan: Patient presented to the emergency department with 6 hour history of garbled speech and confusion. He had no other neurological deficits or symptoms. All symptoms have resolved. He denies headache, blurred vision, dizziness, neck pain, abdominal pain nausea or vomiting. He denies chest pain or shortness of breath. Patient has been evaluated by neurology and Dr. Hernandez appreciated some slight weakness on right upper extremity. CTA head and neck without acute abnormaily, 40-45% focal stenosis of the proximal left ICA. Pt was told by cardiology to not take ASA, however, neurology recommends antiplatelet therapy. Pt will follow up with cardiology for further management. Neuro suggests that pt had left cerebral hemispheric even, likely vasospastic, associated with extreme elevations in blood pressure. Qualifiers: Transient cerebral ischemia type: unspecified Qualified Code(s): G45.9 - Transient cerebral ischemic attack, unspecified (2) Hypertension Current Visit: Yes Status: Chronic Assessment and plan: Chronic. Continue home medications. Currently taking Diovan, Lopressor, Lasix. Qualifiers: Hypertension type: essential hypertension Qualified Code(s): I10 - Essential (primary) hypertension (3) Atrial fibrillation Current Visit: Yes Status: Chronic Assessment and plan: Chronic. Patient is anticoagulated with Plavix and Coumadin. Patient does have a pacemaker. Qualifiers: Atrial fibrillation type: unspecified Qualified Code(s): I48.91 - Unspecified atrial fibrillation (4) Chronic kidney disease Current Visit: Yes Status: Chronic Assessment and plan: A serum creatinine 1.84, GFR 37 Pt stage III-IV. Patient with history of diabetes and hypertension. Patient had CTA with contrast, he was hydrated before and after procedure. He is also given Mucinex 600 mg by mouth twice a day 4 doses. He will need a dose to take home. Avoid nephrotoxins. Follow-up with nephrology after discharge. Qualifiers: Chronic kidney disease stage: stage 3 (moderate) Qualified Code(s): N18.3 - Chronic kidney disease, stage 3 (moderate) (5) History of CVA (cerebrovascular accident) Current Visit: Yes Status: Chronic Assessment and plan: Prior history. Patient has no deficits. Patient takes Plavix and Coumadin. He was advised to not take aspirin by cardiology. Neurology recommends aspirin , he will need to follow-up with cardiology. (6) IDDM (insulin dependent diabetes mellitus) Current Visit: Yes Status: Chronic Assessment and plan: Chronic. Diabetes uncontrolled, hemoglobin A1c is 9.3%. Continue home medications and Accu-Chek regimen. (7) Hyperlipidemia Current Visit: Yes Status: Chronic Assessment and plan: Chronic. Continue home medications. Qualifiers: Hyperlipidemia type: unspecified Qualified Code(s): E78.5 - Hyperlipidemia , unspecified (8) History of aortic valve repair Current Visit: Yes Status: Chronic Assessment and plan: Prior history. Patient is anticoagulated. (9) Anticoagulated on Coumadin Current Visit: Yes Status: Chronic (10) Neuropathy Current Visit: Yes Status: Chronic Assessment and plan: Chronic. Continue home medications. - Time Spent With Patient less than 15 minutes - Subjective Interval history: Pt was seen and assessed at 0850. Pt states that he does feel better and has had no symptoms. Neurology has seen pt today. He does have minimal right sided weakness, however, pt states that he is at his baseline. He denies headache, n/v /d, abdominal pain, chest pain or SOB. Pt and I discussed risk factor modifications, he was agreeable. - Constitutional Vitals: Temp Pulse Resp BP Pulse Ox 97.3 F L 73 16 138/82 96 05/29/17 11:08 05/29/17 11:08 05/29/17 11:08 05/29/17 11:08 05/29/17 11:08 General appearance: Present: cooperative, pleasant, no acute distress, answers questions appropriately - Head Head exam: Present: atraumatic, normal inspection, normocephalic - Eye Eye exam: Present: normal appearance, conjuntiva pink, sclera anicteric - Neck Neck exam general surgery: Present: supple, trachea midline. Absent: lymphadenopathy - Respiratory Respiratory exam: Present: CTAB. Absent: accessory muscle use, rales, rhonchi, wheezes - Cardiovascular Cardiovascular exam: Present: RRR, +S1, +S2. Absent: diastolic murmur, gallop, rubs, systolic murmur - GI/Abdominal GI/Abdominal exam: Present: normal bowel sounds, soft, no peritoneal signs. Absent: distended, hepatomegaly, tenderness - Extremities Exam Extremities exam: Present: normal capillary refill, warm, radial pulses palpable and symmetrical. Absent: calf tenderness, cyanotic, pedal edema - Neurological Exam Neurological exam: Present: alert, CN II-XII intact, oriented X3, no focal deficits. Absent: altered, pronater drift, facial droop, speech deficit - Skin Skin exam: Present: dry, intact, normal color, warm. Absent: rash Internal Medicine: Result - Labs CBC & Chem 7: 05/28/17 03:35 05/29/17 05:34 Labs: BMP 05/29/17 05:34 Sodium 143 Potassium 3.7 Chloride 108 H Carbon Dioxide 27 BUN 30 H Creatinine 1.84 H Glucose 53 L Calcium 8.8 - ABG Interpretation ABG results: PT/INR, D-dimer PT 40.5 Seconds (9.4-12.1) H 05/27/17 20:53 - Impressions Impressions Head CTA 05/29/17 07:00 IMPRESSION: 1. No acute intracranial abnormality. 2. Sequelae of a prior infarct within the right frontal lobe. 3. Approximately 40-45% focal stenosis of the proximal left ICA by NASCET criteria. 4. No flow limiting stenosis identified of the [place]. D/ / Thad Rondon MD / Thad Rondon MD Interpreting Provider: Thad Rondon MD Neck CTA 05/29/17 07:00 IMPRESSION: 1. No acute intracranial abnormality. 2. Sequelae of a prior infarct within the right frontal lobe. 3. Approximately 40-45% focal stenosis of the proximal left ICA by NASCET criteria. 4. No flow limiting stenosis identified of the [place]. D/ / Thad Rondon MD / Thad Rondon MD Interpreting Provider: Thad Rondon MD - Stroke Contraindication Rehab Services Not Assessed: Symptoms Resolved Consult Discharge Plan - Plan Instructions: Atorvastatin (By mouth), Transient Ischemic Attack (DC) Additional Instructions: Please follow up with your primary care provider in the next 7-10 days for recheck. Please take your normal medications as directed, we have increased your cholesterol medicine and it is at your pharmacy. Please return to your normal activities as tolerated, return to your normal diet as tolerated. Return to the ER as needed for any other problems or concerns, or if your symptoms return or worsen. Referrals: [facility] [Provider Group] Delta Godfrey MD [Primary Care Provider] - 06/03/17 9:45 am Prescriptions: Atorvastatin [Lipitor] 40 mg PO HS #30 tablet
[2017-05-29 12:44] LABS: INR 3.1; Prothrombin Time 34.3 Seconds (9.4-12.1)
[2017-05-29] MEDS ORDERED: *HR* Warfarin 5 MG TABLET PO SCH (18:00)
[2017-05-30] MEDS ORDERED: *HR* Warfarin 3 MG TABLET PO SCH (18:00)
== END 2017-05-29 14:27 | disposition home or self-care (01) ==
LOC: EMEROO 20:43 → 3BNU 20:43
PROVIDERS: ADMIT Student in an Organized Health Care Education/Training Program; ATTEND Registered Nurse

== ENCOUNTER 2018-03-02 11:20 | Observation (INO) ==
[2018-03-02 12:05] LABS: Basophils # 0.1 K/mcL (0.0-0.2); Basophils % 0.7 %; Eosinophils # 0.2 K/mcL (0.0-0.6); Eosinophils % 3.4 %; Hematocrit 39.8 % (37.5-50.1); Hemoglobin 12.8 g/dL (12.9-16.9); Immature Granulocytes % 0.4 % (0-4); Lymphocytes # 1.2 K/mcL (0.6-4.6); Lymphocytes % 16.6 %; Mean Corpuscular HGB Conc 32.2 g/dL (31.6-35.5); Mean Corpuscular Hemoglobin 31.6 pg (28.0-33.3); Mean Corpuscular Volume 98.3 fL (83.0-100.0); Mean Platelet Volume 9.9 fL (9.4-12.4); Monocytes # 0.9 K/mcL (0.0-1.3); Monocytes % 12.8 %; Neutrophils # 4.7 K/mcL (1.6-8.9); Platelet Count 209 K/mcL (140-400); Red Blood Count 4.05 M/mcL (4.19-5.50); Red Cell Distribution Width 15.6 % (11.5-14.5); Segmented Neutrophils % 66.1 %
[2018-03-02] MEDS: Nitroglycerin 0.4 MG TAB.SUBL SL PRN ×2 (12:15→12:20)
[2018-03-02 12:20] LABS: BUN/Creatinine Ratio 17 (6-26); Blood Urea Nitrogen 41 mg/dL (8-23); Calcium 9.2 mg/dL (8.6-10.3); Carbon Dioxide 28 mEq/L (23-29); Chloride 100 mEq/L (98-107); Glucose 233 mg/dL (70-105); Osmolality,Calculated 296 (280-300); Potassium 4.5 mEq/L (3.5-5.1); Sodium 134 mEq/L (136-145); eGFR For Non-African Americans 28 (> 60)
[2018-03-02 12:21] LABS: Troponin I < 0.03 ng/mL (< 0.04)
[2018-03-02 12:29] LABS: INR 3.9
[2018-03-02 12:39] LABS: Prothrombin Time 44.1 Seconds (9.4-12.1)
--- NOTE | 2018-03-02 13:36 | Emergency Department Note ---
Disposition Clinical Impression: Chest pain Qualifiers: Chest pain type: unspecified Qualified Code(s): R07.9 - Chest pain, unspecified Disposition: Admitted As Inpatient Referrals: Delta Godfrey MD [Primary Care Provider] - General Adult HPI - General Chief complaint: ED Shortness of Breath/Dyspnea Stated complaint: LEYDI Time Seen by Provider: 03/02/18 11:30 Source: patient, family Limitations: no limitations - History of Present Illness Pain Scale: 0 - Related Data Home Medications Medication Instructions Recorded Confirmed Ammonium Lactate [Amlactin] 1 appl TP BID 04/14/17 05/27/17 Clopidogrel [Plavix] 75 mg PO DAILY 04/14/17 05/27/17 Furosemide [Lasix] 40 mg PO DAILY 04/14/17 05/27/17 HYDROcodone/Acet 10/325 mg [[place] 1 - 2 tab PO Q6H PRN 04/14/17 05/27/17 10-325 mg] Metoprolol Tartrate [Lopressor] 50 mg PO BID 04/14/17 05/27/17 Nitroglycerin [Nitrostat] 0.4 mg SL Q5M PRN 04/14/17 05/27/17 Nortriptyline [Pamelor] 25 - 50 mg PO HS 04/14/17 05/27/17 Pantoprazole Sodium [Protonix] 40 mg PO BID 04/14/17 05/27/17 Potassium Chloride [Klor-Con 10] 10 meq PO DAILY 04/14/17 05/27/17 Ranolazine [Ranexa] 500 mg PO BID 04/14/17 05/27/17 Subcutaneous Insulin Pump [T:Slim] 0 units MC AD 04/14/17 05/27/17 Valsartan/Hydrochlorothiazide 1 tab PO DAILY 04/14/17 05/27/17 [Diovan Hct 320-25 mg Tablet] Warfarin [Coumadin] 5 mg PO Q48H 04/14/17 05/27/17 Warfarin [Coumadin] 6 mg PO Q48H 04/14/17 05/27/17 cloNIDine HCl [Clonidine HCl] 0.2 mg PO TID PRN 04/14/17 05/27/17 Gabapentin [Neurontin] 300 mg PO TID 05/27/17 05/27/17 Previous Rx's Medication Instructions Recorded Atorvastatin [Lipitor] 40 mg PO HS #30 tablet 05/28/17 Allergies Allergy/AdvReac Type Severity Reaction Status Date / Time ampicillin Allergy Hives Verified 12/30/17 15:39 carvedilol [From Coreg] Allergy Swelling Verified 12/30/17 15:39 of Lip/Tongue/Throat Hydromorphone [From Dilaudid] Allergy Vomiting Verified 12/30/17 15:39 sulfamethoxazole AdvReac See Verified 12/30/17 15:39 [From Bactrim] Comments trimethoprim [From Bactrim] AdvReac See Verified 12/30/17 15:39 Comments Past Medical History - Past Medical History Medical history: Reports: arthritis, atrial fibrillation, CVA, diabetes, GERD, hyperlipidemia, hypertension, myocardial infarction, renal disease, TIA, valvular heart disease Surgical history: Reports: angioplasty/stent, carotid endarterectomy, cholecystectomy, heart valve replacement, orthopedic, other, pacemaker Psychiatric history: Reports: no psych history - Social History Smoking Status: Never smoker Smokeless Tobacco Status: No Alcohol use: Reports: none Drug use: Reports: none Physical Exam - General Limitations: no limitations General appearance: alert, in no apparent distress Course Vital Signs Temperature 97.9 F 03/02/18 11:24 Pulse Rate 73 03/02/18 11:24 Respiratory Rate 18 03/02/18 11:24 Blood Pressure 183/73 03/02/18 11:24 O2 Sat by Pulse Oximetry 95 03/02/18 11:24 Temperature 97.9 F 03/02/18 11:50 Pulse Rate 84 03/02/18 12:17 Respiratory Rate 18 03/02/18 12:17 Blood Pressure 162/65 03/02/18 12:17 O2 Sat by Pulse Oximetry 99 03/02/18 12:17 Oxygen Delivery Oxygen Delivery Room Air Medical Decision Making - Lab Data Result diagrams: 03/02/18 11:46 03/02/18 11:46 Lab Results 03/02/18 03/02/18 03/02/18 Range/Units 11:46 11:46 11:46 WBC 7.1 (4.3-11.1) K/mcL RBC 4.05 L (4.19-5.50) M/mcL Hgb 12.8 L (12.9-16.9) g/dL Hct 39.8 (37.5-50.1) % MCV 98.3 (83.0-100.0) fL MCH 31.6 (28.0-33.3) pg MCHC 32.2 (31.6-35.5) g/dL RDW 15.6 H (11.5-14.5) % Plt Count 209 (140-400) K/mcL MPV 9.9 (9.4-12.4) fL Immature Gran % 0.4 (0-4) % Seg Neutrophils % 66.1 % Lymphocytes % 16.6 % Monocytes % 12.8 % Eosinophils % 3.4 % Basophils % 0.7 % Neutrophils # 4.7 (1.6-8.9) K/mcL Lymphocytes # 1.2 (0.6-4.6) K/mcL Monocytes # 0.9 (0.0-1.3) K/mcL Eosinophils # 0.2 (0.0-0.6) K/mcL Basophils # 0.1 (0.0-0.2) K/mcL PT (9.4-12.1) Seconds INR Sodium 134 L (136-145) mEq/L Potassium 4.5 (3.5-5.1) mEq/L Chloride 100 (98-107) mEq/L Carbon Dioxide 28 (23-29) mEq/L BUN 41 H (8-23) mg/dL Creatinine 2.37 H (0.70-1.30) mg/dL Est GFR ( Amer) 34 L (> 60) Est GFR (Non-Af Amer) 28 L (> 60) BUN/Creatinine Ratio 17 (6-26) Glucose 233 H (70-105) mg/dL Calculated Osmolality 296 (280-300) Lactic Acid 1.3 (0.5-2.2) mmol/L Calcium 9.2 (8.6-10.3) mg/dL Troponin I < 0.03 (< 0.04) ng/mL B-Natriuretic Peptide (Less than 100) pg/mL 03/02/18 03/02/18 Range/Units 11:46 11:46 WBC (4.3-11.1) K/mcL RBC (4.19-5.50) M/mcL Hgb (12.9-16.9) g/dL Hct (37.5-50.1) % MCV (83.0-100.0) fL MCH (28.0-33.3) pg MCHC (31.6-35.5) g/dL RDW (11.5-14.5) % Plt Count (140-400) K/mcL MPV (9.4-12.4) fL Immature Gran % (0-4) % Seg Neutrophils % % Lymphocytes % % Monocytes % % Eosinophils % % Basophils % % Neutrophils # (1.6-8.9) K/mcL Lymphocytes # (0.6-4.6) K/mcL Monocytes # (0.0-1.3) K/mcL Eosinophils # (0.0-0.6) K/mcL Basophils # (0.0-0.2) K/mcL PT 44.1 H* (9.4-12.1) Seconds INR 3.9 Sodium (136-145) mEq/L Potassium (3.5-5.1) mEq/L Chloride (98-107) mEq/L Carbon Dioxide (23-29) mEq/L BUN (8-23) mg/dL Creatinine (0.70-1.30) mg/dL Est GFR ( Amer) (> 60) Est GFR (Non-Af Amer) (> 60) BUN/Creatinine Ratio (6-26) Glucose (70-105) mg/dL Calculated Osmolality (280-300) Lactic Acid (0.5-2.2) mmol/L Calcium (8.6-10.3) mg/dL Troponin I (< 0.04) ng/mL B-Natriuretic Peptide 307 H (Less than 100) pg/mL Attestation Statement - Attestation Attestation: I examined this patient and my medical decision-making was reviewed with the Resident Physician. I agree with the documented findings, disposition and treatment plan as described except to the extent set forth below. 67 year old male prsents to the ED with complaints of exertional dyspnea and a history of 7 cardiac stents and states that he has midsternal chest discomfort which has improved and relieved it down to a level 2 now. This is concerning for ACS especially secondary to his history and we will admit to medicine after nitro trial is completed. History of kidney disease and is following with consentino and typically has blood pressure in the 170/80s
--- NOTE | 2018-03-02 13:44 | Emergency Department Note ---
Disposition Clinical Impression: Chest pain Qualifiers: Chest pain type: unspecified Qualified Code(s): R07.9 - Chest pain, unspecified Disposition: Admitted As Inpatient General Adult HPI - General Chief complaint: ED Shortness of Breath/Dyspnea Stated complaint: LEYDI Time Seen by Provider: 03/02/18 11:30 Source: patient, family Limitations: no limitations Nursing Notes Reviewed: Yes Vital Signs Reviewed: Yes - History of Present Illness HPI Narrative: 67 year old male pmh of 7 stents placed reports SOB and chest pain. Reports that the chist pain is a tightness that radiates into his shoulders. Chest pain started today which brought him in. Reports recent diagnosis of Right lower extremity cellulits. States leg appears better. On blood thinning meidcaiton. Has artificial aortic valve. Pain Scale: 0 - Related Data Home Medications Medication Instructions Recorded Confirmed Ammonium Lactate [Amlactin] 1 appl TP BID 04/14/17 03/02/18 Clopidogrel [Plavix] 75 mg PO DAILY 04/14/17 03/02/18 Furosemide [Lasix] 40 mg PO DAILY 04/14/17 03/02/18 HYDROcodone/Acet 10/325 mg [[place] 1 - 2 tab PO Q6H PRN 04/14/17 03/02/18 10-325 mg] Metoprolol Tartrate [Lopressor] 50 mg PO BID 04/14/17 03/02/18 Nitroglycerin [Nitrostat] 0.4 mg SL Q5M PRN 04/14/17 03/02/18 Nortriptyline [Pamelor] 25 - 50 mg PO HS 04/14/17 03/02/18 Pantoprazole Sodium [Protonix] 40 mg PO BID 04/14/17 03/02/18 Potassium Chloride [Klor-Con 10] 10 meq PO DAILY 04/14/17 03/02/18 Ranolazine [Ranexa] 1,000 mg PO BID 04/14/17 03/02/18 Subcutaneous Insulin Pump [T:Slim] 0 units MC AD 04/14/17 03/02/18 Valsartan/Hydrochlorothiazide 1 tab PO DAILY 04/14/17 03/02/18 [Diovan Hct 320-25 mg Tablet] Warfarin [Coumadin] 5 mg PO Q48H 04/14/17 03/02/18 Warfarin [Coumadin] 6 mg PO Q48H 04/14/17 03/02/18 cloNIDine HCl [Clonidine HCl] 0.2 mg PO TID PRN 04/14/17 03/02/18 Gabapentin [Neurontin] 100 mg PO TID 03/02/18 03/02/18 Previous Rx's Medication Instructions Recorded Atorvastatin [Lipitor] 40 mg PO HS #30 tablet 05/28/17 Allergies Allergy/AdvReac Type Severity Reaction Status Date / Time ampicillin Allergy Hives Verified 12/30/17 15:39 carvedilol [From Coreg] Allergy Swelling Verified 12/30/17 15:39 of Lip/Tongue/Throat Hydromorphone [From Dilaudid] AdvReac Vomiting Verified 03/02/18 14:44 sulfamethoxazole AdvReac See Verified 12/30/17 15:39 [From Bactrim] Comments trimethoprim [From Bactrim] AdvReac See Verified 12/30/17 15:39 Comments All systems ED: reviewed and negative except as stated. Review of Systems: As Per HPI Constitutional: Denies: fever Cardiovascular: Reports: chest pain. Denies: palpitations, syncope Respiratory: Reports: dyspnea. Denies: cough Gastrointestinal: Denies: abdominal pain, nausea, vomiting Genitourinary: Denies: urgency, dysuria, frequency Integumentary: Reports: other (RLE cellulitis) Endocrine: Reports: fatigue Past Medical History - Past Medical History Medical history: Reports: arthritis, atrial fibrillation, CVA, diabetes, GERD, hyperlipidemia, hypertension, myocardial infarction, renal disease, TIA, valvular heart disease Surgical history: Reports: angioplasty/stent, carotid endarterectomy, cholecystectomy, heart valve replacement, orthopedic, other, pacemaker Psychiatric history: Reports: no psych history - Social History Smoking Status: Never smoker Smokeless Tobacco Status: No Alcohol use: Reports: none Drug use: Reports: none Physical Exam - General Limitations: no limitations General appearance: alert, in no apparent distress - Head Head exam: normocephalic - Eye Eye exam: Present: EOMI - ENT ENT exam: normal oropharynx - Neck Neck exam: Present: trachea midline - Chest Chest inspection: Present: symmetric chest wall rise - Respiratory Respiratory exam: Present: normal lung sounds bilaterally. Absent: respiratory distress - Cardiovascular Cardiovascular exam: Present: regular rate, normal rhythm, normal heart sounds - Abdominal Exam Abdominal exam: Present: soft, Non-Tender. Absent: distention, guarding, rebound, rigidity Course Vital Signs Temperature 97.9 F 03/02/18 11:24 Pulse Rate 73 03/02/18 11:24 Respiratory Rate 18 03/02/18 11:24 Blood Pressure 183/73 03/02/18 11:24 O2 Sat by Pulse Oximetry 95 03/02/18 11:24 Temperature 98.1 F 03/02/18 15:43 Pulse Rate 63 03/02/18 15:43 Respiratory Rate 14 03/02/18 15:43 Blood Pressure 151/57 03/02/18 15:43 O2 Sat by Pulse Oximetry 99 03/02/18 15:43 Oxygen Delivery Oxygen Delivery Room Air Medical Decision Making - MDM Narrative Medical decision making narrative: 67 year old male presents to the emergency department with chest pain and shortness of breath. EKG revealed ventricularly paced rhythm. troponin negative. Chest X-ray reveals mild cardiomegaly. Patient does not appear to be in heart failure on clinical exam. BNP mildly higher than the last one. Creatinine within normal range for patient. Patient give nitrolglycerin trial in the emergency department and this relieved some of his symptoms. Not hypoxic or hypotensive. Do not suspect PE at this time. Heart Score of 4. Patient agreed to admission as he is at high risk for ACS. Family agreed with plan. Hospitalist agreed to accept the patient for admission. Not in any acute distress at this time. Chest X-Ray 03/02/18 11:34 IMPRESSION: Stable mild cardiomegaly. No acute pulmonary disease. D/ / Jamel Garcia MD / Jamel Garcia MD Interpreting Provider: Jamel Garcia MD Vital Signs Temperature 97.9 F 03/02/18 11:24 Pulse Rate 73 03/02/18 11:24 Respiratory Rate 18 03/02/18 11:24 Blood Pressure 183/73 03/02/18 11:24 O2 Sat by Pulse Oximetry 95 03/02/18 11:24 Temperature 98.1 F 03/02/18 15:43 Pulse Rate 63 03/02/18 15:43 Respiratory Rate 14 03/02/18 15:43 Blood Pressure 151/57 03/02/18 15:43 O2 Sat by Pulse Oximetry 99 03/02/18 15:43 Oxygen Delivery Oxygen Delivery Room Air - Lab Data Result diagrams: 03/02/18 11:46 03/02/18 11:46 Lab Results 03/02/18 03/02/18 03/02/18 Range/Units 11:46 11:46 11:46 WBC 7.1 (4.3-11.1) K/mcL RBC 4.05 L (4.19-5.50) M/mcL Hgb 12.8 L (12.9-16.9) g/dL Hct 39.8 (37.5-50.1) % MCV 98.3 (83.0-100.0) fL MCH 31.6 (28.0-33.3) pg MCHC 32.2 (31.6-35.5) g/dL RDW 15.6 H (11.5-14.5) % Plt Count 209 (140-400) K/mcL MPV 9.9 (9.4-12.4) fL Immature Gran % 0.4 (0-4) % Seg Neutrophils % 66.1 % Lymphocytes % 16.6 % Monocytes % 12.8 % Eosinophils % 3.4 % Basophils % 0.7 % Neutrophils # 4.7 (1.6-8.9) K/mcL Lymphocytes # 1.2 (0.6-4.6) K/mcL Monocytes # 0.9 (0.0-1.3) K/mcL Eosinophils # 0.2 (0.0-0.6) K/mcL Basophils # 0.1 (0.0-0.2) K/mcL PT (9.4-12.1) Seconds INR Sodium 134 L (136-145) mEq/L Potassium 4.5 (3.5-5.1) mEq/L Chloride 100 (98-107) mEq/L Carbon Dioxide 28 (23-29) mEq/L BUN 41 H (8-23) mg/dL Creatinine 2.37 H (0.70-1.30) mg/dL Est GFR ( Amer) 34 L (> 60) Est GFR (Non-Af Amer) 28 L (> 60) BUN/Creatinine Ratio 17 (6-26) Glucose 233 H (70-105) mg/dL Calculated Osmolality 296 (280-300) Lactic Acid 1.3 (0.5-2.2) mmol/L Calcium 9.2 (8.6-10.3) mg/dL Troponin I < 0.03 (< 0.04) ng/mL B-Natriuretic Peptide (Less than 100) pg/mL 03/02/18 03/02/18 Range/Units 11:46 11:46 WBC (4.3-11.1) K/mcL RBC (4.19-5.50) M/mcL Hgb (12.9-16.9) g/dL Hct (37.5-50.1) % MCV (83.0-100.0) fL MCH (28.0-33.3) pg MCHC (31.6-35.5) g/dL RDW (11.5-14.5) % Plt Count (140-400) K/mcL MPV (9.4-12.4) fL Immature Gran % (0-4) % Seg Neutrophils % % Lymphocytes % % Monocytes % % Eosinophils % % Basophils % % Neutrophils # (1.6-8.9) K/mcL Lymphocytes # (0.6-4.6) K/mcL Monocytes # (0.0-1.3) K/mcL Eosinophils # (0.0-0.6) K/mcL Basophils # (0.0-0.2) K/mcL PT 44.1 H* (9.4-12.1) Seconds INR 3.9 Sodium (136-145) mEq/L Potassium (3.5-5.1) mEq/L Chloride (98-107) mEq/L Carbon Dioxide (23-29) mEq/L BUN (8-23) mg/dL Creatinine (0.70-1.30) mg/dL Est GFR ( Amer) (> 60) Est GFR (Non-Af Amer) (> 60) BUN/Creatinine Ratio (6-26) Glucose (70-105) mg/dL Calculated Osmolality (280-300) Lactic Acid (0.5-2.2) mmol/L Calcium (8.6-10.3) mg/dL Troponin I (< 0.04) ng/mL B-Natriuretic Peptide 307 H (Less than 100) pg/mL - EKG Data EKG #1 EKG attestation: Yes I reviewed and interpreted this EKG. EKG results narrative: Heart rate 91 bpm, QRS duration 139 ms, QT 437 segs, QTC 628 ms, Ventricular pacer rhythm.
[2018-03-02] MEDS ORDERED: Naloxone 0.4 MG/ML INJ IVP PRN (15:07)
--- NOTE | 2018-03-02 15:24 | Internal Med History&Physical ---
Date of Encounter: 03/02/18 Time of Encounter: 14:30 Internal Medicine - H&P: HPI Chief complaint: Interscapular Pain Admitted From: Home Plans for Post Hospital Care: Home History of present illness: Mr. Cabrera is a 67 year old male with past medical history significant for CAD with stents x7, aortic valve replacement, ME, afib, pacemaker, hypertension , hyperlipidemia, CVA, TIA, diabetes, and renal disease who presents for 6 day history of constant 8/10 pressure/aching interscapular pain worse on left side with some discomfort radiating to his left chest. Pain associated with shortness of breath, dizziness, nausea, and vomiting. States he feels like he is unable to take a full deep breath. Initial day of pain was the worst but pain has persisted along with shortness of breath. Nausea, vomiting, and dizziness has not persisted. No current treatment. No alleviating or exacerbating factors. Received nitro in ER which he states has improved his symptoms and he is currently much more comfortable. ER reported EKG as paced rhythm. Follows with Dr Mccormack and contacted his office this morning and was advised to come to the ER. Also follows with Dr Shea of [facility] for aortic valve replacement and has follow up in March. Reports that Dr Shea has informed him he is comfortable with his systolic blood pressures reaching 190-200 without additional intervention. Blood pressures at home have been running 160-170 systolic. Also follows with [facility] but is unsure of next follow up. 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 Blood sugars have been running low at home after switching to new insulin pump but are starting to improve after adjustments from PCP, patient requests to continue self dosing with insulin pump while in hospital. Next INR check is scheduled for next week, reports he gets it checked about every 4 [address]iscuss[address] patient with Dr Go. Past Med Surg Social Fam HX - Past Medical History Medical history: arthritis, atrial fibrillation, CVA, diabetes, GERD, hyperlipidemia, hypertension, myocardial infarction, renal disease, TIA, valvular heart disease Additional medical history: pacemaker dependent Psychiatric history: no psych history - Past Surgical History Surgical History: angioplasty/stent, carotid endarterectomy, cholecystectomy, heart valve replacement, orthopedic, other, pacemaker Additional surgical history: EYE hemorrhage. Heart Stents x 7. throat. bilaterlal feet. left toe amputation - Social History Smoking Status: Never smoker Smokeless Tobacco Status: No Alcohol use: none Drug use: none - Family History Mother Living Status: Still Living Hx Family Cardiac Disorders: Yes (Heart Disease) Hx Family Endocrine Disorder: Yes (DM) Father Living Status: Hx Family Cardiac Disorders: Yes Hx Family Endocrine Disorder: Yes (DM) Internal Medicine - H&P: Meds RX: Ammonium Lactate [Amlactin] 1 appl TP BID 04/14/17 [History] RX: Clopidogrel [Plavix] 75 mg PO DAILY 04/14/17 [History] RX: Furosemide [Lasix] 40 mg PO DAILY 04/14/17 [History] RX: HYDROcodone/Acet 10/325 mg [[place] 10-325 mg] 1 - 2 tab PO Q6H PRN 04/14/17 [ History] RX: Metoprolol Tartrate [Lopressor] 50 mg PO BID 04/14/17 [History] RX: Nitroglycerin [Nitrostat] 0.4 mg SL Q5M PRN 04/14/17 [History] RX: Nortriptyline [Pamelor] 25 - 50 mg PO HS 04/14/17 [History] RX: Pantoprazole Sodium [Protonix] 40 mg PO BID 04/14/17 [History] RX: Potassium Chloride [Klor-Con 10] 10 meq PO DAILY 04/14/17 [History] RX: Ranolazine [Ranexa] 1,000 mg PO BID 04/14/17 [History] RX: Subcutaneous Insulin Pump [T:Slim] 0 units MC AD 04/14/17 [History] RX: Valsartan/Hydrochlorothiazide [Diovan Hct 320-25 mg Tablet] 1 tab PO DAILY 04/14/17 [History] RX: Warfarin [Coumadin] 5 mg PO Q48H 04/14/17 [History] RX: Warfarin [Coumadin] 6 mg PO Q48H 04/14/17 [History] RX: cloNIDine HCl [Clonidine HCl] 0.2 mg PO TID PRN 04/14/17 [History] RX: Atorvastatin [Lipitor] 40 mg PO HS #30 tablet 05/28/17 [Rx] Gabapentin [Neurontin] 100 mg PO TID 03/02/18 [History] 3 Allergy/AdvReac Type Severity Reaction Status Date / Time ampicillin Allergy Hives Verified 12/30/17 15:39 carvedilol [From Coreg] Allergy Swelling Verified 12/30/17 15:39 of Lip/Tongue/Throat Hydromorphone [From Dilaudid] AdvReac Vomiting Verified 03/02/18 14:44 sulfamethoxazole AdvReac See Verified 12/30/17 15:39 [From Bactrim] Comments trimethoprim [From Bactrim] AdvReac See Verified 12/30/17 15:39 Comments All Systems PM: A 10-system review of systems was performed and is negative for pertinent findings except as documented above in the HPI. - Constitutional Vitals: Temp Pulse Resp BP Pulse Ox 97.9 F 90 18 181/84 99 03/02/18 11:50 03/02/18 14:08 03/02/18 14:08 03/02/18 14:08 03/02/18 14:08 Exam: General: Alert and oriented. Skin:Normal color, no rash. Dressing dry and intact to right lower extremity. Midsternal incision scar noted. Pacemaker noted to left chest. HEENT:Pupils equal, round and reactive. Cardiovascular:Normal S1 & S2, no rubs, murmurs or gallops. No JVD. Pain not reproducible on palpation. Lungs:Normal breath sounds, no wheezes or crackles. Abdomen:Soft, non-tender, no rigidity. Extremities:No deformity, tenderness, or clubbing. 1+ pitting edema to bilateral lower extremities. Right lower extremity larger than left which patient states is chronic for him following saphenous vein removal. Distal pulses normal +2. Neurological:Normal cognition and motor skills. Rest of the physical exam is non contributory Internal Med - H&P Results - Labs CBC & Chem 7: 03/02/18 11:46 03/02/18 11:46 Labs: Short CBC 03/02/18 Range/Units 11:46 WBC 7.1 (4.3-11.1) K/mcL Hgb 12.8 L (12.9-16.9) g/dL Hct 39.8 (37.5-50.1) % Plt Count 209 (140-400) K/mcL Neutrophils # 4.7 (1.6-8.9) K/mcL BMP 03/02/18 11:46 Sodium 134 L Potassium 4.5 Chloride 100 Carbon Dioxide 28 BUN 41 H Creatinine 2.37 H Glucose 233 H Calcium 9.2 Cardiac Enzymes 03/02/18 Range/Units 11:46 Troponin I < 0.03 (< 0.04) ng/mL - Impressions ITS Impressions Chest X-Ray 03/02/18 11:34 IMPRESSION: Stable mild cardiomegaly. No acute pulmonary disease. D/ / Jamel Garcia MD / Jamel Garcia MD Interpreting Provider: Jamel Garcia MD - Assessment and plan (1) Interscapular pain Current Visit: No Status: Acute Assessment and plan: Follows with Dr Mccormack, called office this morning and advised to come to ER. Cardiology consulted. Initial troponin in ER negative, serial troponins ordered. 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 Cardiac diet. (2) Chest pain Current Visit: No Status: Acute Assessment and plan: Plan as stated above. Qualifiers: Chest pain type: unspecified Qualified Code(s): R07.9 - Chest pain, unspecified (3) Supratherapeutic INR Current Visit: No Status: Acute Assessment and plan: Hold coumadin today. Repeat level in a.m. Monitor closely for bleeding. (4) Diabetes mellitus Current Visit: No Status: Chronic Assessment and plan: ACHS accucheck. Patient to self medicate with insulin pump. Diabetic diet. 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
[2018-03-02] MEDS ORDERED: *HR* Dextrose 50 % in Water (Syg) 50 ML SYRINGE IVP PRN (16:05)
[2018-03-02] MEDS ORDERED: Dextrose Gel 15 GM/37.5 ML TUBE PO PRN ×2 (16:05)
[2018-03-02] MEDS ORDERED: D5% in Water 1,000 ML IVC PRN (16:05)
[2018-03-02] MEDS ORDERED: cloNIDine HCl 0.1 MG TABLET PO PRN (16:13)
[2018-03-02] MEDS ORDERED: SUBCUTANEOUS INSULIN PUMP MC SCH (16:15)
--- NOTE | 2018-03-02 18:33 | Electrocardiograph Report ---
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
[2018-03-02] MEDS: *HR* HYDROcodone/Acet 10/325 mg TABLET PO PRN (20:15)
[2018-03-02] MEDS: Ranolazine 500 MG TAB.ER.12H PO SCH (20:15)
[2018-03-02] MEDS: Gabapentin 100 MG CAPSULE PO SCH (20:15)
[2018-03-02] MEDS: Ammonium Lactate 30 APPL/225 GM BOTTLE TP SCH (20:20)
[2018-03-03] MEDS: *HR* HYDROcodone/Acet 10/325 mg TABLET PO PRN ×3 (03:37→22:17)
[2018-03-03 05:02] LABS: Basophils # 0.1 K/mcL (0.0-0.2); Basophils % 0.7 %; Eosinophils # 0.3 K/mcL (0.0-0.6); Hematocrit 37.9 % (37.5-50.1); Hemoglobin 12.4 g/dL (12.9-16.9); Immature Granulocytes % 0.4 % (0-4); Lymphocytes # 1.2 K/mcL (0.6-4.6); Lymphocytes % 16.9 %; Mean Corpuscular HGB Conc 32.7 g/dL (31.6-35.5); Mean Corpuscular Hemoglobin 31.6 pg (28.0-33.3); Mean Corpuscular Volume 96.4 fL (83.0-100.0); Mean Platelet Volume 10.2 fL (9.4-12.4); Monocytes % 13.6 %; Neutrophils # 4.6 K/mcL (1.6-8.9); Platelet Count 189 K/mcL (140-400); Red Blood Count 3.93 M/mcL (4.19-5.50); Red Cell Distribution Width 15.5 % (11.5-14.5); Segmented Neutrophils % 64.4 %
[2018-03-03 05:07] LABS: INR 4.1
[2018-03-03 05:09] LABS: Prothrombin Time 46.3 Seconds (9.4-12.1)
[2018-03-03 05:23] LABS: Potassium 3.9 mEq/L (3.5-5.1)
[2018-03-03] MEDS: hydroCHLOROthiazide 25 MG TABLET PO SCH (09:16)
[2018-03-03] MEDS: Ranolazine 500 MG TAB.ER.12H PO SCH ×2 (09:16→21:57)
[2018-03-03] MEDS: Gabapentin 100 MG CAPSULE PO SCH ×3 (09:16→22:00)
[2018-03-03] MEDS: Valsartan 160 MG TABLET PO SCH (09:16)
[2018-03-03] MEDS: Furosemide 40 MG TABLET PO SCH (09:16)
[2018-03-03] MEDS: Ammonium Lactate 30 APPL/225 GM BOTTLE TP SCH ×2 (09:17→22:00)
[2018-03-03] MEDS: Subcutaneous Insulin Pump [T:Slim] MC SCH (09:18)
--- NOTE | 2018-03-03 10:17 | Cardiology Consult Note ---
Date of Encounter: 03/03/18 Time of Encounter: 10:15 Assessment and Plan (1) Interscapular pain Current Visit: No Status: Acute Per Cardiology: Status post episode of falling one week ago with subsequent mid scapular and chest discomfort. Troponins negative 2. BNP only 307, CXR stable. Euvolemic on exam. Will check echocardiogram. No further ischemic evaluation warranted at this time. Patient verbalized understanding and agree to plan. Will discuss with Dr. Mccormack. (2) CAD (coronary artery disease) Current Visit: Yes Status: Chronic Per Cardiology: Known history of CAD with last heart catheterization in September 2013 which showed patent stents to proximal LAD, patent stents to mid LAD, patent stents to proximal circumflex, mid circumflex had 30% in-stent restenosis, right PDA 40% in-stent restenosis, mid RCA 20% stenosis, distal RCA 20% stenosis. On beta maryana, Plavix, ARB, statin, Ranexa. Had been chest pain-free up until fall-- again symptoms reproducible with movement, palpation, and deep inspiration since fall. Qualifiers: Coronary Disease-Associated Artery/Lesion type: tribal artery [place] vs. transplanted heart: tribal heart Associated angina: angina presence unspecified Qualified Code(s): I25.10 - Atherosclerotic heart disease of tribal coronary artery without angina pectoris (3) Atrial fibrillation Current Visit: No Status: Chronic Per Cardiology: Hx of chronic atrial fibrillation. Currently rate controlled in the 70s and ventricular pacing. Qualifiers: Atrial fibrillation type: chronic Qualified Code(s): I48.2 - Chronic atrial fibrillation (4) Supratherapeutic INR Current Visit: No Status: Acute Per Cardiology: Current INR 4.1. Has history of AV node ablation and chronic atrial fibrillation. Additionally mechanical aortic valve replacement. Anticoagulated with Coumadin. Also has history of DVT and PE. History of CVA. Target INR 2.0-3.0. H&H stable. (5) History of aortic valve repair Current Visit: No Status: Chronic Per Cardiology: History of mechanical aortic valve replacement. Last echo December 2014 showed EF 60-65%, mild diastolic dysfunction, moderate left atrial enlargement, mechanical aortic valve not well visualized with mean gradient of 17 mmHg. DEEDEE : Impressions: LVEF 55%. Normal LV size and function. The right ventricle was normal in size and systolic function. Mechanical aortic valve appears to be well seated in the LVOT. Leaflets were not well visualized, but grossly appear to demonstrate normal mobility. Mild tricuspid regurgitation. No pulmonary hypertension identified. A linear echodensity consistent with a pacer lead was seen in the right atrium and right ventricle. No evidence of endocarditis visualized on this study. Repeat DEEDEE as clinically indicated. (6) Chronic kidney disease Current Visit: No Status: Chronic Per Cardiology: Known history of CK D stage IIIB, currently around baseline. Monitor closely. On Lasix, ARB, HCTZ. Qualifiers: Chronic kidney disease stage: stage 3 (moderate) Qualified Code(s): N18.3 - Chronic kidney disease, stage 3 (moderate) (7) Fall Current Visit: Yes Status: Acute Per Cardiology: History CVA in 2014 and CVA May 2017 status post right CEA May 2017. Status post dizziness with fall. Will check echo and carotid duplex. Systolic blood pressure stable. No events noted on telemetry. Qualifiers: Encounter type: initial encounter Qualified Code(s): W19.XXXA - Unspecified fall, initial encounter Discussion w patient/family: The assessment and plan as outlined above was discussed with the patient and/or family members who expressed understanding and agreement. All questions were answered. Thank you for involving us in the care of your patient. Please call with any questions. History of Present Illness Consult date: 03/03/18 Requesting physician: Kamran Vega Consult reason: Scapular Pain Chief complaint: Back pain, SOB History of present illness: Previous records reviewed: "Mr. Cabrera is a 67 year old male with past medical history significant for CAD with stents x7, aortic valve replacement, NH, afib, pacemaker, hypertension , hyperlipidemia, CVA, TIA, diabetes, and renal disease who presents for 6 day history of constant 8/10 pressure/aching interscapular pain worse on left side with some discomfort radiating to his left chest. Pain associated with shortness of breath, dizziness, nausea, and vomiting. States he feels like he is unable to take a full deep breath". Cardiology consult for scapular pain and left chest pain. Well-known to cardiology. Last seen by Dr. Mccormack 11/2016. Patient reports his normal state of health up until about one week ago. He reports finished walking his dog and bent over to put his dog in a kennel upon standing felt dizzy and had an episode of falling. He denied any palpitations, headache, accompany symptoms prior to event. He reports neck small morning he awakened with mid scapular pain and discomfort worse with deep inspiration and movement. He reports symptoms have been continuous since that time. He reports he finally came to the ER due to symptoms continuing and felt short of breath and difficulty breathing at rest. He does report he did express some nausea. He denies any vomiting, fever, chills, diarrhea. Reports recent treatment with antibiotics for right lower extremity staph infection due to slow healing wounds. Additionally, since last seen by cardiology reports had CVA May 2017 and underwent right carotid endarterectomy with vascular surgery. He reports no residual weakness. Confirms remains on Coumadin and denies any active bleeding or blood loss. Chest discomfort and mid scapular pain reproducible today with deep inspiration, movement, and palpation. . Past Med Surg Social Fam HX - Past Medical History Attestation: Yes The following information was validated with the patient. Source: patient, old records reviewed Medical history: arthritis, atrial fibrillation, CVA, diabetes, GERD, hyperlipidemia, hypertension, myocardial infarction, renal disease, TIA, valvular heart disease Additional medical history: pacemaker dependent Psychiatric history: no psych history - Past Surgical History Surgical History: angioplasty/stent, carotid endarterectomy, cholecystectomy, heart valve replacement, orthopedic, other, pacemaker Additional surgical history: EYE hemorrhage. Heart Stents x 7. throat. bilaterlal feet. left toe amputation - Social History Smoking Status: Never smoker Smokeless Tobacco Status: No Alcohol use: none Drug use: none - Family History Mother Living Status: Still Living Hx Family Cardiac Disorders: Yes (Heart Disease) Hx Family Endocrine Disorder: Yes (DM) Father Living Status: Hx Family Cardiac Disorders: Yes Hx Family Endocrine Disorder: Yes (DM) Medications and Allergies RX: Ammonium Lactate [Amlactin] 1 appl TP BID 04/14/17 [History] RX: Clopidogrel [Plavix] 75 mg PO DAILY 04/14/17 [History] RX: Furosemide [Lasix] 40 mg PO DAILY 04/14/17 [History] RX: HYDROcodone/Acet 10/325 mg [Brandon 10-325 mg] 1 - 2 tab PO Q6H PRN 04/14/17 [ History] RX: Metoprolol Tartrate [Lopressor] 50 mg PO BID 04/14/17 [History] RX: Nitroglycerin [Nitrostat] 0.4 mg SL Q5M PRN 04/14/17 [History] RX: Nortriptyline [Pamelor] 25 - 50 mg PO HS 04/14/17 [History] RX: Pantoprazole Sodium [Protonix] 40 mg PO BID 04/14/17 [History] RX: Potassium Chloride [Klor-Con 10] 10 meq PO DAILY 04/14/17 [History] RX: Ranolazine [Ranexa] 1,000 mg PO BID 04/14/17 [History] RX: Subcutaneous Insulin Pump [T:Slim] 0 units MC AD 04/14/17 [History] RX: Valsartan/Hydrochlorothiazide [Diovan Hct 320-25 mg Tablet] 1 tab PO DAILY 04/14/17 [History] RX: Warfarin [Coumadin] 5 mg PO Q48H 04/14/17 [History] RX: Warfarin [Coumadin] 6 mg PO Q48H 04/14/17 [History] RX: cloNIDine HCl [Clonidine HCl] 0.2 mg PO TID PRN 04/14/17 [History] RX: Atorvastatin [Lipitor] 40 mg PO HS #30 tablet 05/28/17 [Rx] Gabapentin [Neurontin] 100 mg PO TID 03/02/18 [History] 3 Allergy/AdvReac Type Severity Reaction Status Date / Time ampicillin Allergy Hives Verified 12/30/17 15:39 carvedilol [From Coreg] Allergy Swelling Verified 12/30/17 15:39 of Lip/Tongue/Throat Hydromorphone [From Dilaudid] AdvReac Vomiting Verified 03/02/18 14:44 sulfamethoxazole AdvReac See Verified 12/30/17 15:39 [From Bactrim] Comments trimethoprim [From Bactrim] AdvReac See Verified 12/30/17 15:39 Comments All Systems Review: The remainder of the systems were reviewed and are negative - Cardiovascular Cardiovascular: as per HPI, chest pain at rest, dyspnea at rest, lightheadedness Physical Examination Vital Signs, Last 4 Hours Temp Pulse Resp BP Pulse Ox 03/03/18 09:24 99 03/03/18 06:51 97.4 F L 69 18 154/66 99 General: Conversant, No Apparent Distress HEENT: Atraumatic, Normocephaly, Mucus Membranes Moist Neck: No JVD, Normal carotid pulses, Other (Right carotid bruit noted) Cardiac: Normal S1 and S2, No Murmur, Other (Irregular irregular) Lungs: Normal Breath Sounds, No Wheeze, Rales, Rhonchi Neuro: Alert and responsive, No focal deficits noted Abdomen: Soft, Non-Tender Skin: Other (Multiple scabbed areas on right lower extremity) Musculoskeletal: No Chest Wall Tenderness Extremities: No Clubbing, No Cyanosis, Normal Pulses, Other (Trace nonpitting bilateral lower extremity) Results 03/03/18 03:54 03/03/18 03:54 Lab Results Laboratory Tests 12/30/17 03/02/18 03/02/18 15:54 11:46 11:46 Hgb Hct INR Creatinine 2.37 H Est GFR (Non-Af Amer) 35 L 28 L Troponin I < 0.03 B-Natriuretic Peptide 307 H 03/03/18 03/03/18 03/03/18 03:54 03:54 03:54 Hgb 12.4 L Hct 37.9 INR 4.1 Creatinine 1.92 H Est GFR (Non-Af Amer) 35 L Troponin I B-Natriuretic Peptide 03/03/18 09:12 Hgb Hct INR Creatinine Est GFR (Non-Af Amer) Troponin I < 0.03 B-Natriuretic Peptide ITS Impressions Chest X-Ray 03/02/18 11:34 IMPRESSION: Stable mild cardiomegaly. No acute pulmonary disease. D/ / Jamel Garcia MD / Jamel Garcia MD Interpreting Provider: Jamel Garcia MD Active Medications Hydrocodone Bitart/Acetaminophen (Brandon 10-325 Mg) 1 each PO Q6H PRN PRN Reason: Pain Stop: 09/01/18 16:14 Last Admin: 03/03/18 03:37 Dose: 1 each Atorvastatin Calcium (Lipitor) 40 mg PO HS OPAL Stop: 09/01/18 21:01 Last Admin: 03/02/18 20:15 Dose: 40 mg Clonidine HCl (Clonidine Hcl) 0.2 mg PO TID PRN PRN Reason: Blood Pressure - High Clopidogrel Bisulfate (Plavix) 75 mg PO DAILY OPAL Stop: 09/02/18 09:01 Last Admin: 03/03/18 09:16 Dose: 75 mg Dextrose/Water (Dextrose 50% (Syg)) 25 ml IVP AD PRN PRN Reason: Hypoglycemia Stop: 09/01/18 16:06 Furosemide (Lasix) 40 mg PO DAILY OPAL Stop: 09/02/18 09:01 Last Admin: 03/03/18 09:16 Dose: 40 mg Gabapentin (Neurontin) 100 mg PO TID OPAL Stop: 09/01/18 21:01 Last Admin: 03/03/18 09:16 Dose: 100 mg Glucagon (Glucagen) 1 mg IM ONCE PRN PRN Reason: Hypoglycemia Stop: 09/01/18 16:06 Glucose (Gluctose) 15 gm PO ONCE PRN PRN Reason: Hypoglycemia Stop: 09/01/18 16:06 Glucose (Gluctose) 30 gm PO ONCE PRN PRN Reason: Hypoglycemia Stop: 09/01/18 16:06 Hydrochlorothiazide (Hydrochlorothiazide) 25 mg PO DAILY [facility] Stop: 09/02/18 09:01 Last Admin: 03/03/18 09:16 Dose: 25 mg Dextrose (Dextrose 5%) 1,000 mls @ 100 mls/hr IVC .Q10H PRN PRN Reason: HYPOGLYCEMIA Stop: 09/01/18 16:06 Lactic Acid (Amlactin) 1 appl TP BID [facility] Stop: 09/01/18 21:01 Last Admin: 03/03/18 09:17 Dose: Not Given Metoprolol Tartrate (Lopressor) 50 mg PO BID [facility] Stop: 09/01/18 21:01 Last Admin: 03/03/18 09:16 Dose: 50 mg Naloxone HCl (Narcan) 0.4 mg IVP Q2MIN PRN PRN Reason: SEE COMMENTS Stop: 09/01/18 15:08 Nitroglycerin (Nitroglycerin) 0.4 mg SL Q5MIN PRN PRN Reason: Chest Pain Stop: 09/01/18 12:03 Last Admin: 03/02/18 12:20 Dose: 0.4 mg Nortriptyline HCl (Pamelor) 25 mg PO HS OPAL Stop: 09/01/18 21:01 Last Admin: 03/02/18 20:23 Dose: 25 mg Omeprazole (Prilosec) 20 mg PO BID [facility] Stop: 09/01/18 21:01 Last Admin: 03/03/18 09:16 Dose: 20 mg Pharmacy Profile Note (Patient Taking Own Medication) 1 each MC CONT OPAL Stop: 09/01/18 16:16 Last Admin: 03/03/18 09:18 Dose: 1 each Potassium Chloride (Potassium Chloride) 10 meq PO DAILY [facility] Stop: 09/02/18 09:01 Last Admin: 03/03/18 09:16 Dose: 10 meq Ranolazine (Ranexa) 1,000 mg PO BID [facility] Stop: 09/01/18 21:01 Last Admin: 03/03/18 09:16 Dose: 1,000 mg Valsartan (Diovan) 320 mg PO DAILY [facility] Stop: 09/02/18 09:01 Last Admin: 03/03/18 09:16 Dose: 320 mg - Imaging and Cardiology Echo: pending, report reviewed Cardiac cath: report reviewed - EKG Interpretation EKG results cardiology: personally reviewed (Ventricular pacing in the 90s with occasional PVCs), ventricular paced rhythm, other (Telemetry shows average heart rate past 12 hours 76, ventricular pacing, no events noted) Consult Discharge Plan - Plan Referrals: Delta Godfrey MD [Primary Care Provider] -
[2018-03-03] MEDS ORDERED: Warfarin perPT PO PRN (18:00)
--- NOTE | 2018-03-03 19:44 | Internal Med Progress Note ---
Hospitalist Progress Note - Encounter Date of Encounter: 03/03/18 Time of Encounter: 11:00 - Subjective Interval History: Patient presented with intrascapular/chest pain found to have supratherapeutic INR with negative cardiac biomarkers Patient reports symptoms have improved this morning Echocardiogram and carotid Dopplers scheduled today per cardiology recommendations for evaluation - Exam Vitals: Temp Pulse Resp BP Pulse Ox 98 F 73 15 107/58 97 03/03/18 19:11 03/03/18 19:11 03/03/18 19:11 03/03/18 19:11 03/03/18 19:11 Exam: Gen.: Nonacute distress, alert and oriented 3 ENT: Mucosal membranes moist Respiratory: Lungs are clear to auscultation bilaterally without any wheezing rhonchi or rales Cardiovascular: Normal S1 and S2 regular rate rhythm no murmurs rubs or gallops Abdomen: Soft, nontender and nondistended with positive bowel sounds Extremities: No lower extremity edema Skin: Normal color - Assessment and Plan (1) Chest pain Current Visit: No Status: Inactive Assessment and Plan: Patient presented with atypical chest/intrascapular pain Cardiac biomarkers negative Etiology consulted with recommendations for echocardiogram/carotid Dopplers for evaluation (2) Supratherapeutic INR Current Visit: No Status: Acute Assessment and Plan: INR 4.1 this morning; Coumadin currently being held (3) Diabetes mellitus Current Visit: No Status: Chronic Assessment and Plan: ACHS accucheck. Patient to self medicate with insulin pump. Diabetic diet. DVT Prophylaxis: Patient with supratherapeutic INR as above - Time Spent with Patient Total time spent is greater than 50% in coordination of care (as documented) at patient's floor/unit and/or counseling patient: Internal Medicine: Result - Labs CBC & Chem 7: 03/03/18 03:54 03/03/18 03:54 Labs: Short CBC 03/03/18 Range/Units 03:54 WBC 7.1 (4.3-11.1) K/mcL Hgb 12.4 L (12.9-16.9) g/dL Hct 37.9 (37.5-50.1) % Plt Count 189 (140-400) K/mcL Neutrophils # 4.6 (1.6-8.9) K/mcL BMP 03/03/18 03:54 Sodium 137 Potassium 3.9 Chloride 104 Carbon Dioxide 26 BUN 36 H Creatinine 1.92 H Glucose 66 L Calcium 9.0 Cardiac Enzymes 03/03/18 Range/Units 09:12 Troponin I < 0.03 (< 0.04) ng/mL - ABG Interpretation ABG results: PT/INR, D-dimer PT 46.3 Seconds (9.4-12.1) H* 03/03/18 03:54 - VTE Reasons for not Prescribing Prophylaxis: Not indicated-Anticoagulated or INR therapeutic Consult Discharge Plan - Plan Referrals: Delta Godfrey MD [Primary Care Provider] - (1) Chest pain Qualifiers: Chest pain type: unspecified Qualified Code(s): R07.9 - Chest pain, unspecified (3) Diabetes mellitus Qualifiers: Diabetes mellitus type: type 2 Diabetes mellitus half-way insulin use: with terminal carman use Diabetes mellitus complication status: without complication Qualified Code(s): E11.9 - Type 2 diabetes mellitus without complications; Z79.4 - snf (current) use of insulin
[2018-03-03] MEDS ORDERED: Perflutren Lipid Microsphere 1.3 ML in 0.9 % Sodium Chloride 8.7 ML IVP ONE (19:56)
[2018-03-04 04:46] LABS: INR 2.5; Prothrombin Time 28.5 Seconds (9.4-12.1)
[2018-03-04] MEDS: Ammonium Lactate 30 APPL/225 GM BOTTLE TP SCH (09:21)
[2018-03-04] MEDS: Gabapentin 100 MG CAPSULE PO SCH (09:32)
[2018-03-04] MEDS: Furosemide 40 MG TABLET PO SCH (09:32)
[2018-03-04] MEDS: hydroCHLOROthiazide 25 MG TABLET PO SCH (09:32)
[2018-03-04] MEDS: Valsartan 160 MG TABLET PO SCH (09:32)
[2018-03-04] MEDS: Ranolazine 500 MG TAB.ER.12H PO SCH (09:32)
[2018-03-04] MEDS: Subcutaneous Insulin Pump [T:Slim] MC SCH (09:33)
[2018-03-04 10:41] VITALS: BP 147/64
--- NOTE | 2018-03-04 11:59 | Cardiology Progress Note ---
Date of Encounter: 03/04/18 Time of Encounter: 11:57 Assessment and Plan (1) Interscapular pain Current Visit: No Status: Acute Per Cardiology: Status post episode of falling one week ago with subsequent mid scapular and chest discomfort. Troponins negative 2. BNP only 307, CXR stable. Euvolemic on exam. Denies pain overnight. TTE EF preserved 55-60%, normal wall motion. Mild cLVH, mechanical AV with normal function, mild MS, mild TR, moderate phtn. No further ischemic evaluation warranted at this time. Cardiology signing off. Reconsult PRN. Will coordinate outpt follow-up in 2-3 weeks. (2) CAD (coronary artery disease) Current Visit: Yes Status: Chronic Per Cardiology: Known history of CAD with last [facility] in September 2013 which showed patent stents to proximal LAD, patent stents to mid LAD, patent stents to proximal circumflex, mid circumflex had 30% in-stent restenosis, right PDA 40% in-stent restenosis, mid RCA 20% stenosis, distal RCA 20% stenosis. On beta maryana, Plavix, ARB, statin, Ranexa. Had been chest pain-free up until fall-- again symptoms reproducible with movement, palpation, and deep inspiration since fall. Qualifiers: Coronary Disease-Associated Artery/Lesion type: [place] artery [place] vs. transplanted heart: [place] heart Associated angina: angina presence unspecified Qualified Code(s): I25.10 - Atherosclerotic heart disease of [place] coronary artery without angina pectoris (3) Atrial fibrillation Current Visit: No Status: Chronic Per Cardiology: Hx of chronic atrial fibrillation. Currently rate controlled in the 70s and ventricular pacing. Qualifiers: Atrial fibrillation type: chronic Qualified Code(s): I48.2 - Chronic atrial fibrillation (4) Chronic kidney disease Current Visit: No Status: Chronic Per Cardiology: Known history of CK D stage IIIB, currently around baseline. Monitor closely. On Lasix, ARB, HCTZ. Qualifiers: Chronic kidney disease stage: stage 3 (moderate) Qualified Code(s): N18.3 - Chronic kidney disease, stage 3 (moderate) (5) History of aortic valve repair Current Visit: No Status: Chronic Per Cardiology: History of mechanical aortic valve replacement. TTE shows mechanical AV with normal function. Discussion w patient/family: The assessment and plan as outlined above was discussed with the patient and/or family members who expressed understanding and agreement. All questions were answered. Thank you for involving us in the care of your patient. Please call with any questions. I will discuss all the above with Dr. Mccormack and make changes as necessary. Subjective Principal diagnosis: Chest pain Interval history: Denies chest pain overnight. Endorses occasional episodes of dyspnea. TTE resulted--EF preserved. Objective Vital Signs, Last 4 Hours Temp Pulse Resp BP Pulse Ox 03/04/18 10:36 97.7 F 70 18 147/64 97 03/04/18 09:41 98 Vital Signs Temp Pulse Resp BP Pulse Ox 03/04/18 10:36 97.7 F 70 18 147/64 97 03/04/18 09:41 98 03/04/18 06:55 97.4 F L 69 20 174/85 98 03/04/18 05:48 97.6 F 72 15 130/71 94 03/03/18 23:20 97.7 F 69 15 107/59 96 03/03/18 19:11 98 F 73 15 107/58 97 03/03/18 15:42 98 F 85 20 150/82 97 Intake and Output 03/03/18 03/04/18 03/04/18 23:59 07:59 15:59 Intake Total 250 / 250 Balance 250 / 250 Intake: IV Fluids 10 / 10 Definity 1.3 ML In Normal 10 / 10 Saline Flush 8.7 ML @ 1200 mls/ hr IVP ONCE ONE Rx#:[id number] Oral 240 / 240 Other: Meal Dinner Percent of Meal Consumed 100% Weight 113.1 kg Blood Glucose* 164 93 212 General: Conversant, No Apparent Distress HEENT: Atraumatic, Normocephaly, Mucus Membranes Moist Neck: No JVD, Normal carotid pulses Cardiac: Reg Rate and Rhythm, Normal S1 and S2, No Murmur Lungs: Normal Breath Sounds, No Wheeze, Rales, Rhonchi Neuro: Alert and responsive, No focal deficits noted Abdomen: Soft, Non-Tender Skin: No rashes noted on visualized skin Musculoskeletal: No Chest Wall Tenderness Extremities: No Clubbing, No Cyanosis, No Edema, Normal Pulses Results 03/03/18 03:54 03/03/18 03:54 Lab Results 03/04/18 03:38 INR 2.5 Active Medications Hydrocodone Bitart/Acetaminophen (Center 10-325 Mg) 1 each PO Q6H PRN PRN Reason: Pain Stop: 09/01/18 16:14 Last Admin: 03/03/18 22:17 Dose: 1 each Atorvastatin Calcium (Lipitor) 40 mg PO HS OPAL Stop: 09/01/18 21:01 Last Admin: 03/03/18 21:59 Dose: 40 mg Clonidine HCl (Clonidine Hcl) 0.2 mg PO TID PRN PRN Reason: Blood Pressure - High Clopidogrel Bisulfate (Plavix) 75 mg PO DAILY [facility] Stop: 09/02/18 09:01 Last Admin: 03/04/18 09:33 Dose: 75 mg Dextrose/Water (Dextrose 50% (Syg)) 25 ml IVP AD PRN PRN Reason: Hypoglycemia Stop: 09/01/18 16:06 Furosemide (Lasix) 40 mg PO DAILY [facility] Stop: 09/02/18 09:01 Last Admin: 03/04/18 09:32 Dose: 40 mg Gabapentin (Neurontin) 100 mg PO TID OPAL Stop: 09/01/18 21:01 Last Admin: 03/04/18 09:32 Dose: Not Given Glucagon (Glucagen) 1 mg IM ONCE PRN PRN Reason: Hypoglycemia Stop: 09/01/18 16:06 Glucose (Gluctose) 15 gm PO ONCE PRN PRN Reason: Hypoglycemia Stop: 09/01/18 16:06 Glucose (Gluctose) 30 gm PO ONCE PRN PRN Reason: Hypoglycemia Stop: 09/01/18 16:06 Hydrochlorothiazide (Hydrochlorothiazide) 25 mg PO DAILY OP[facility] Stop: 09/02/18 09:01 Last Admin: 03/04/18 09:32 Dose: 25 mg Dextrose (Dextrose 5%) 1,000 mls @ 100 mls/hr IVC .Q10H PRN PRN Reason: HYPOGLYCEMIA Stop: 09/01/18 16:06 Lactic Acid (Amlactin) 1 appl TP BID [facility] Stop: 09/01/18 21:01 Last Admin: 03/04/18 09:21 Dose: Not Given Metoprolol Tartrate (Lopressor) 50 mg PO BID [facility] Stop: 09/01/18 21:01 Last Admin: 03/04/18 09:32 Dose: 50 mg Naloxone HCl (Narcan) 0.4 mg IVP Q2MIN PRN PRN Reason: SEE COMMENTS Stop: 09/01/18 15:08 Nitroglycerin (Nitroglycerin) 0.4 mg SL Q5MIN PRN PRN Reason: Chest Pain Stop: 09/01/18 12:03 Last Admin: 03/02/18 12:20 Dose: 0.4 mg Nortriptyline HCl (Pamelor) 25 mg PO HS [facility] Stop: 09/01/18 21:01 Last Admin: 03/03/18 21:58 Dose: 25 mg Omeprazole (Prilosec) 20 mg PO BID [facility] Stop: 09/01/18 21:01 Last Admin: 03/04/18 09:32 Dose: 20 mg Pharmacy Profile Note (Patient Taking Own Medication) 1 each MC CONT [facility] Stop: 09/01/18 16:16 Last Admin: 03/04/18 09:33 Dose: 1 each Potassium Chloride (Potassium Chloride) 10 meq PO DAILY [facility] Stop: 09/02/18 09:01 Last Admin: 03/04/18 09:32 Dose: 10 meq Ranolazine (Ranexa) 1,000 mg PO BID [facility] Stop: 09/01/18 21:01 Last Admin: 03/04/18 09:32 Dose: 1,000 mg Valsartan (Diovan) 320 mg PO DAILY [facility] Stop: 09/02/18 09:01 Last Admin: 03/04/18 09:32 Dose: 320 mg Warfarin Sodium (Coumadin Perpt) 1 each PO DAILY@1800 PRN PRN Reason: SEE COMMENTS Stop: 09/02/18 18:01 Warfarin Sodium (Coumadin) 5 mg PO ONCE ONE Stop: 03/04/18 18:01 - Imaging and Cardiology Echo: report reviewed - EKG Interpretation EKG results cardiology: other (12 hr tele AVG HR 71) - VTE Reasons for not Prescribing Prophylaxis: Not indicated-Anticoagulated or INR therapeutic Consult Discharge Plan - Plan Referrals: Delta Godfrey MD [Primary Care Provider] -
--- NOTE | 2018-03-04 13:44 | Discharge Summary ---
- NOTES TO OUTPATIENT PROVIDER Notes to Outpatient Provider: Patient to follow-up with primary care provider/ Coumadin clinic for INR management of newly dosed Coumadin due to supratherapeutic INR during hospital stay Orders not resulted at time of discharge: Pending orders 03/05/18 04:00 PT/INR [Prothrombin Time INR] [COAG] AM 0400 03/06/18 04:00 PT/INR [Prothrombin Time INR] [COAG] AM 0400 03/07/18 04:00 PT/INR [Prothrombin Time INR] [COAG] AM 0400 Date of Encounter: 03/04/18 Time of Encounter: 11:00 - Discharge Diagnosis (1) Chest pain Priority: Primary Status: Inactive Qualifiers: Chest pain type: unspecified Qualified Code(s): R07.9 - Chest pain, unspecified (2) Supratherapeutic INR Priority: Primary Status: Acute (3) Diabetes mellitus Priority: Secondary Status: Chronic Qualifiers: Diabetes mellitus type: type 2 Diabetes mellitus penitentiary insulin use: with penitentiary use Diabetes mellitus complication status: without complication Qualified Code(s): E11.9 - Type 2 diabetes mellitus without complications; 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 Patient reported of a for 6 day history of constant 8/10 pressure/aching interscapular pain worse on left side with some discomfort radiating to his left chest. Pain associated with shortness of breath, dizziness, nausea, and vomiting. States he feels like he is unable to take a full deep breath. Patient follows with Dr Mccormack and contacted his office this morning and was advised to come to the ER. Patient also follows with Dr Shea of [facility] cardiology for aortic valve replacement and has follow up in March. In the ER, patients first set of cardiac biomarkers were negative but he was found to be supratherapeutic with INR of 3.9 and repeat was 4.1. He was admitted to medical surgical floor for ACS rule out and management of supratherapeutic INR. During patients hospital stay cardiology was consulted with recommendations for echocardiogram which showed LVEF of 55-60% with normal LV size and systolic function. Carotid Dopplers was also done which showed right carotid arteries have an minimal plaque throughout and left internal carotid artery with 40-59% stenosis. Patients cardiac biomarkers were also negative. Patients supratherapeutic INR was also resolved and now within normal limits. Patients Coumadin regimen will be changed to 5 mg daily and he will follow up with primary care provider. - Time Spent with Patient Total time spent providing and/or coordinating discharge services: - Discharge Medications Prescriptions: Warfarin [Coumadin] 5 mg PO 1800 #30 tablet Home Medications: Ammonium Lactate [Amlactin] 1 appl TP BID 04/14/17 [History] Clopidogrel [Plavix] 75 mg PO DAILY 04/14/17 [History] Furosemide [Lasix] 40 mg PO DAILY 04/14/17 [History] HYDROcodone/Acet 10/325 mg [[place] 10-325 mg] 1 - 2 tab PO Q6H PRN 04/14/17 [ History] Metoprolol Tartrate [Lopressor] 50 mg PO BID 04/14/17 [History] Nitroglycerin [Nitrostat] 0.4 mg SL Q5M PRN 04/14/17 [History] Nortriptyline [Pamelor] 25 - 50 mg PO HS 04/14/17 [History] Pantoprazole Sodium [Protonix] 40 mg PO BID 04/14/17 [History] Potassium Chloride [Klor-Con 10] 10 meq PO DAILY 04/14/17 [History] Ranolazine [Ranexa] 1,000 mg PO BID 04/14/17 [History] Subcutaneous Insulin Pump [T:Slim] 0 units MC AD 04/14/17 [History] Valsartan/Hydrochlorothiazide [Diovan Hct 320-25 mg Tablet] 1 tab PO DAILY 04/14 [History] cloNIDine HCl [Clonidine HCl] 0.2 mg PO TID PRN 04/14/17 [History] Atorvastatin [Lipitor] 40 mg PO HS #30 tablet 05/28/17 [Rx] Gabapentin [Neurontin] 100 mg PO TID 03/02/18 [History] Warfarin [Coumadin] 5 mg PO 1800 #30 tablet 03/04/18 [Rx] Allergies/Adverse Reactions: 3 Allergy/AdvReac Type Severity Reaction Status Date / Time ampicillin Allergy Hives Verified 12/30/17 15:39 carvedilol [From Coreg] Allergy Swelling Verified 12/30/17 15:39 of Lip/Tongue/Throat Hydromorphone [From Dilaudid] AdvReac Vomiting Verified 03/02/18 14:44 sulfamethoxazole AdvReac See Verified 12/30/17 15:39 [From Bactrim] Comments trimethoprim [From Bactrim] AdvReac See Verified 12/30/17 15:39 Comments Date of admission: 03/02/18 14:36 Primary care physician: Delta Godfrey MD Consults: 03/02/18 15:17 Consult to Cardiology [CONS] Stat Comment: Consulting Provider: Cardiology [facility] Reason for Consult: Patient with interscapular pain worse on left side with some discomfort in his chest since Friday. Follows with Dr Mccormack, called office this morning and advised to come to ER. Call Completed: No - Constitutional Vitals: Temp Pulse Resp BP Pulse Ox 97.7 F 70 18 147/64 97 03/04/18 10:36 03/04/18 10:36 03/04/18 10:36 03/04/18 10:36 03/04/18 10:36 Exam: Gen.: Nonacute distress, alert and oriented 3 Skin: Normal color - Patient Status Disposition: Home, Self-Care - Discharge Instructions Instructions: Chronic Hypertension (DC) Follow Up With: Delta Godfrey MD [Primary Care Provider] - (patient has an appt. on the . This staff requested sooner appt. online) - VTE Reasons for not Prescribing Prophylaxis: Not indicated-Anticoagulated or INR therapeutic
[2018-03-04] MEDS ORDERED: *HR* Warfarin 5 MG TABLET PO ONE (18:00)
== END 2018-03-04 15:53 | disposition home or self-care (01) ==
LOC: EMEROOARM 11:20 → 2ANU 11:20 → SUATTDRO 14:36 → 2ANU 15:03
PROVIDERS: ADMIT Internal Medicine; ATTEND Hospitalist

== ENCOUNTER 2018-03-09 19:54 | Observation (INO) ==
--- NOTE | 2018-03-09 20:29 | Emergency Department Note ---
Disposition Clinical Impression: Left arm cellulitis, Superficial thrombophlebitis of left upper extremity Disposition: Admitted As Inpatient Condition: Fair Referrals: Delta Godfrey MD [Primary Care Provider] - Forms: ED Satisfaction Letter Time of Disposition: 22:30 General Adult HPI - General Chief complaint: ED Skin/Abscess/Foreign Body Stated complaint: IV site concern Time Seen by Provider: 03/09/18 20:06 Source: patient, family Limitations: no limitations - History of Present Illness Pain Scale: 10 - Related Data Home Medications Medication Instructions Recorded Confirmed Ammonium Lactate [Amlactin] 1 appl TP BID 04/14/17 03/09/18 Clopidogrel [Plavix] 75 mg PO DAILY 04/14/17 03/09/18 Furosemide [Lasix] 40 mg PO DAILY 04/14/17 03/09/18 HYDROcodone/Acet 10/325 mg [[place] 1 - 2 tab PO Q6H PRN 04/14/17 03/09/18 10-325 mg] Metoprolol Tartrate [Lopressor] 50 mg PO BID 04/14/17 03/09/18 Nitroglycerin [Nitrostat] 0.4 mg SL Q5M PRN 04/14/17 03/09/18 Nortriptyline [Pamelor] 25 - 50 mg PO HS 04/14/17 03/09/18 Pantoprazole Sodium [Protonix] 40 mg PO BID 04/14/17 03/09/18 Potassium Chloride [Klor-Con 10] 10 meq PO DAILY 04/14/17 03/09/18 Ranolazine [Ranexa] 1,000 mg PO BID 04/14/17 03/09/18 Subcutaneous Insulin Pump [T:Slim] 0 units MC AD 04/14/17 03/09/18 Valsartan/Hydrochlorothiazide 1 tab PO DAILY 04/14/17 03/09/18 [Diovan Hct 320-25 mg Tablet] cloNIDine HCl [Clonidine HCl] 0.2 mg PO TID PRN 04/14/17 03/09/18 Gabapentin [Neurontin] 100 mg PO TID 03/02/18 03/09/18 Warfarin Sodium [Warfarin Sodium] 6 mg PO Q48H 03/09/18 03/09/18 Warfarin [Coumadin] 5 mg PO Q48H 03/09/18 03/09/18 Previous Rx's Medication Instructions Recorded Atorvastatin [Lipitor] 40 mg PO HS #30 tablet 05/28/17 Allergies Allergy/AdvReac Type Severity Reaction Status Date / Time ampicillin Allergy Hives Verified 03/09/18 19:59 carvedilol [From Coreg] Allergy Swelling Verified 03/09/18 19:59 of Lip/Tongue/Throat Hydromorphone [From Dilaudid] AdvReac Vomiting Verified 03/09/18 19:59 sulfamethoxazole AdvReac See Verified 03/09/18 19:59 [From Bactrim] Comments trimethoprim [From Bactrim] AdvReac See Verified 03/09/18 19:59 Comments Past Medical History - Past Medical History Medical history: Reports: arthritis, atrial fibrillation, CVA, diabetes, GERD, hyperlipidemia, hypertension, myocardial infarction, renal disease, TIA, valvular heart disease Surgical history: Reports: angioplasty/stent, carotid endarterectomy, cholecystectomy, heart valve replacement, orthopedic, other, pacemaker Psychiatric history: Reports: no psych history - Social History Smoking Status: Never smoker Smokeless Tobacco Status: No Alcohol use: Reports: none Drug use: Reports: none Physical Exam - General Limitations: no limitations General appearance: alert, in no apparent distress Course Vital Signs Temperature 98.5 F 03/09/18 19:59 Pulse Rate 96 03/09/18 19:59 Respiratory Rate 14 03/09/18 19:59 Blood Pressure 149/97 03/09/18 19:59 O2 Sat by Pulse Oximetry 98 03/09/18 19:59 Temperature 98.5 F 03/09/18 19:59 Pulse Rate 84 03/09/18 21:31 Respiratory Rate 18 03/09/18 21:31 Blood Pressure 178/73 03/09/18 21:31 O2 Sat by Pulse Oximetry 97 03/09/18 21:31 Oxygen Delivery Oxygen Delivery Room Air Medical Decision Making - Lab Data Result diagrams: 03/09/18 20:30 03/09/18 20:30 Lab Results 03/09/18 03/09/18 03/09/18 Range/Units 20:30 20:30 22:12 WBC 12.9 H D (4.3-11.1) K/mcL RBC 3.60 L (4.19-5.50) M/mcL Hgb 11.5 L (12.9-16.9) g/dL Hct 35.0 L (37.5-50.1) % MCV 97.2 (83.0-100.0) fL MCH 31.9 (28.0-33.3) pg MCHC 32.9 (31.6-35.5) g/dL RDW 15.7 H (11.5-14.5) % Plt Count 177 (140-400) K/mcL MPV 10.1 (9.4-12.4) fL Immature Gran % 0.5 (0-4) % Seg Neutrophils % 71.9 % Lymphocytes % 11.2 % Monocytes % 15.2 % Eosinophils % 0.8 % Basophils % 0.4 % Neutrophils # 9.3 H (1.6-8.9) K/mcL Lymphocytes # 1.4 (0.6-4.6) K/mcL Monocytes # 2.0 H (0.0-1.3) K/mcL Eosinophils # 0.1 (0.0-0.6) K/mcL Basophils # 0.1 (0.0-0.2) K/mcL PT 25.2 H (9.4-12.1) Seconds INR 2.2 Sodium 134 L (136-145) mEq/L Potassium 4.2 (3.5-5.1) mEq/L Chloride 105 (98-107) mEq/L Carbon Dioxide 26 (23-29) mEq/L BUN 40 H (8-23) mg/dL Creatinine 2.53 H (0.70-1.30) mg/dL Est GFR ( Amer) 31 L (> 60) Est GFR (Non-Af Amer) 26 L (> 60) BUN/Creatinine Ratio 16 (6-26) Glucose 167 H (70-105) mg/dL Calculated Osmolality 292 (280-300) Calcium 9.3 (8.6-10.3) mg/dL Attestation Statement - Attestation Attestation: I examined this patient and my medical decision-making was reviewed with the Resident Physician. I agree with the documented findings, disposition and treatment plan as described except to the extent set forth below. Patient resisted the emergency department with a chief complaint of left elbow pain. Patient recently seen and admitted for an unrelated complaint. He had an IV in that left antecubital fossa. Shortly after discharge begin having pain redness swelling and warmth to the ED dorsum of the forearm and elbow. Patient also has a history of a septic bursitis in that elbow for which she had surgery with Dr. Sal. On examination he is in no acute distress. He does have erythema warmth and swelling to the dorsum of the forearm. He also swelling over the olecranon. The antecubital fossa is not erythematous or warm. I do not appreciate any palpable cords. Plan. CT scan and ultrasound. IV and blood work. Elevated white blood cell count. Ultrasound shows a small superficial clot in the cephalic. This is not felt to be causing his symptoms. It appears infectious. We will start IV antibiotic and admit if patient is willing to stay.
[2018-03-09 20:50] LABS: Basophils # 0.1 K/mcL (0.0-0.2); Basophils % 0.4 %; Eosinophils # 0.1 K/mcL (0.0-0.6); Eosinophils % 0.8 %; Hemoglobin 11.5 g/dL (12.9-16.9); Immature Granulocytes % 0.5 % (0-4); Lymphocytes % 11.2 %; Mean Corpuscular HGB Conc 32.9 g/dL (31.6-35.5); Mean Corpuscular Hemoglobin 31.9 pg (28.0-33.3); Mean Corpuscular Volume 97.2 fL (83.0-100.0); Mean Platelet Volume 10.1 fL (9.4-12.4); Monocytes % 15.2 %; Neutrophils # 9.3 K/mcL (1.6-8.9); Platelet Count 177 K/mcL (140-400); Red Cell Distribution Width 15.7 % (11.5-14.5); Segmented Neutrophils % 71.9 %
--- NOTE | 2018-03-09 20:51 | Emergency Department Note ---
Disposition Clinical Impression: Left arm cellulitis, Superficial thrombophlebitis of left upper extremity Disposition: Admitted As Inpatient Condition: Fair Referrals: Delta Godfrey MD [Primary Care Provider] - Forms: ED Satisfaction Letter General Adult HPI - General Chief complaint: ED Skin/Abscess/Foreign Body Stated complaint: IV site concern Time Seen by Provider: 03/09/18 20:06 Source: patient, family Mode of arrival: ambulatory Limitations: no limitations Nursing Notes Reviewed: Yes Vital Signs Reviewed: Yes - History of Present Illness HPI Narrative: Patient presents to the ED with the chief complaint of left elbow pain. Patient was recently admitted and states he had an IV placed in his left arm and the day after discharge started developing pain and redness and swelling. Does have a history of septic bursitis on that left arm in the past and states it feels similar. He has not had any fever or chills. He saw his primary care physician and they told him to come to the ER. Denies any chest pain or shortness of breath. No abdominal pain, nausea, vomiting, diarrhea. Pain Scale: 10 - Related Data Home Medications Medication Instructions Recorded Confirmed Ammonium Lactate [Amlactin] 1 appl TP BID 04/14/17 03/09/18 Clopidogrel [Plavix] 75 mg PO DAILY 04/14/17 03/09/18 Furosemide [Lasix] 40 mg PO DAILY 04/14/17 03/09/18 HYDROcodone/Acet 10/325 mg [[place] 1 - 2 tab PO Q6H PRN 04/14/17 03/09/18 10-325 mg] Metoprolol Tartrate [Lopressor] 50 mg PO BID 04/14/17 03/09/18 Nitroglycerin [Nitrostat] 0.4 mg SL Q5M PRN 04/14/17 03/09/18 Nortriptyline [Pamelor] 25 - 50 mg PO HS 04/14/17 03/09/18 Pantoprazole Sodium [Protonix] 40 mg PO BID 04/14/17 03/09/18 Potassium Chloride [Klor-Con 10] 10 meq PO DAILY 04/14/17 03/09/18 Ranolazine [Ranexa] 1,000 mg PO BID 04/14/17 03/09/18 Subcutaneous Insulin Pump [T:Slim] 0 units MC AD 04/14/17 03/09/18 Valsartan/Hydrochlorothiazide 1 tab PO DAILY 04/14/17 03/09/18 [Diovan Hct 320-25 mg Tablet] cloNIDine HCl [Clonidine HCl] 0.2 mg PO TID PRN 04/14/17 03/09/18 Gabapentin [Neurontin] 100 mg PO TID 03/02/18 03/09/18 Warfarin Sodium [Warfarin Sodium] 6 mg PO Q48H 03/09/18 03/09/18 Warfarin [Coumadin] 5 mg PO Q48H 03/09/18 03/09/18 Previous Rx's Medication Instructions Recorded Atorvastatin [Lipitor] 40 mg PO HS #30 tablet 05/28/17 Allergies Allergy/AdvReac Type Severity Reaction Status Date / Time ampicillin Allergy Hives Verified 03/09/18 19:59 carvedilol [From Coreg] Allergy Swelling Verified 03/09/18 19:59 of Lip/Tongue/Throat Hydromorphone [From Dilaudid] AdvReac Vomiting Verified 03/09/18 19:59 sulfamethoxazole AdvReac See Verified 03/09/18 19:59 [From Bactrim] Comments trimethoprim [From Bactrim] AdvReac See Verified 03/09/18 19:59 Comments Review of Systems: As reviewed in the HPI. All other systems reviewed are negative or normal. Past Medical History - Past Medical History Attestation: Yes The following information was validated with the patient. Source: patient Medical history: Reports: arthritis, atrial fibrillation, CVA, diabetes, GERD, hyperlipidemia, hypertension, myocardial infarction, renal disease, TIA, valvular heart disease Surgical history: Reports: angioplasty/stent, carotid endarterectomy, cholecystectomy, heart valve replacement, orthopedic, other, pacemaker Psychiatric history: Reports: no psych history - Social History Smoking Status: Never smoker Smokeless Tobacco Status: No Alcohol use: Reports: none Drug use: Reports: none Physical Exam CONSTITUTIONAL: [well appearing, alert and in no acute distress] EYES: [EOMI, clear conjunctiva, PERRLA] HENT: [Normocephalic, atraumatic, moist mucus membranes, normal oropharynx] NECK: [normal inspection, full ROM, trachea midline, no obvious swelling] PULMONARY: [normal lung sounds bilaterally, normal chest rise and fall, no respiratory distress or stridor, no wheezes, no rales, no rhonchi CARDIOVASCULAR: [regular rate, regular rhythm, normal heart sounds, no murmurs, distal extremities are warm and well perfused] GASTROINSTESTINAL: [soft, non-tender, non-rigid, non-distended, no guarding, no rebound, normal bowel sounds] GENITOURINARY/RECTAL: [deferred] NEUROLOGIC: [Alert, oriented x3, normal speech, moves all extremities] EXTREMITIES: [Normal inspection, full ROM, moderate swelling and tenderness to the left olecranon area with forearm tenderness and erythema and warmth, normal capillary refill] MUSCULOSKELETAL: [no gross deformities, atraumatic] SKIN: [No cyanosis, no diaphoresis, normal color, warm, no rash] PSYCHIATRIC: [normal mood and affect] - General Limitations: no limitations General appearance: alert, in no apparent distress Course Course Narrative: Patient presenting with suspected infected olecranon bursitis. He did have a recent hospitalization and had an IV in his left antecubital fossa area that does not appear to be infected. Plan is to get an ultrasound to rule out DVT as well as a noncontrast CT to look for deep space infection. - Reevaluation(s) Reevaluation #1: Patient admitted to the hospital service Vital Signs Temperature 98.5 F 03/09/18 19:59 Pulse Rate 96 03/09/18 19:59 Respiratory Rate 14 03/09/18 19:59 Blood Pressure 149/97 03/09/18 19:59 O2 Sat by Pulse Oximetry 98 03/09/18 19:59 Temperature 98.5 F 03/09/18 19:59 Pulse Rate 84 03/09/18 21:31 Respiratory Rate 18 03/09/18 21:31 Blood Pressure 178/73 03/09/18 21:31 O2 Sat by Pulse Oximetry 97 03/09/18 21:31 Oxygen Delivery Oxygen Delivery Room Air Medical Decision Making - Lab Data Result diagrams: 03/09/18 20:30 03/09/18 20:30 Lab Results 03/09/18 03/09/18 03/09/18 Range/Units 20:30 20:30 22:12 WBC 12.9 H D (4.3-11.1) K/mcL RBC 3.60 L (4.19-5.50) M/mcL Hgb 11.5 L (12.9-16.9) g/dL Hct 35.0 L (37.5-50.1) % MCV 97.2 (83.0-100.0) fL MCH 31.9 (28.0-33.3) pg MCHC 32.9 (31.6-35.5) g/dL RDW 15.7 H (11.5-14.5) % Plt Count 177 (140-400) K/mcL MPV 10.1 (9.4-12.4) fL Immature Gran % 0.5 (0-4) % Seg Neutrophils % 71.9 % Lymphocytes % 11.2 % Monocytes % 15.2 % Eosinophils % 0.8 % Basophils % 0.4 % Neutrophils # 9.3 H (1.6-8.9) K/mcL Lymphocytes # 1.4 (0.6-4.6) K/mcL Monocytes # 2.0 H (0.0-1.3) K/mcL Eosinophils # 0.1 (0.0-0.6) K/mcL Basophils # 0.1 (0.0-0.2) K/mcL PT 25.2 H (9.4-12.1) Seconds INR 2.2 Sodium 134 L (136-145) mEq/L Potassium 4.2 (3.5-5.1) mEq/L Chloride 105 (98-107) mEq/L Carbon Dioxide 26 (23-29) mEq/L BUN 40 H (8-23) mg/dL Creatinine 2.53 H (0.70-1.30) mg/dL Est GFR ( Amer) 31 L (> 60) Est GFR (Non-Af Amer) 26 L (> 60) BUN/Creatinine Ratio 16 (6-26) Glucose 167 H (70-105) mg/dL Calculated Osmolality 292 (280-300) Calcium 9.3 (8.6-10.3) mg/dL
[2018-03-09 20:57] LABS: Lymphocytes # 1.4 K/mcL (0.6-4.6)
[2018-03-09 21:06] LABS: Calcium 9.3 mg/dL (8.6-10.3); Potassium 4.2 mEq/L (3.5-5.1)
[2018-03-09] MEDS ORDERED: Clindamycin 900 MG/50 ML 900 MG/50 ML IV.SOLN IVPB ONE (22:03)
[2018-03-09 22:28] LABS: INR 2.2; Prothrombin Time 25.2 Seconds (9.4-12.1)
[2018-03-09] MEDS ORDERED: Ringers Solution, Lactated 1,000 ML IVC SCH (23:30)
--- NOTE | 2018-03-09 23:48 | Internal Med History&Physical ---
<Jason Ugarte Alisson - Last Filed: 03/10/18 00:15> Date of Encounter: 03/10/18 Time of Encounter: 23:33 Internal Medicine - H&P: HPI Chief complaint: Left arm pain Admitted From: Home Plans for Post Hospital Care: Home History of present illness: Mr. Cabrera is a 67 year old male with past medical history of multiple septic joints, MRSA infection, atrial fibrillation with rapid ventricular rate, cerebrovascular accident, diabetes mellitus, gastroesophageal reflux disease, hyperlipidemia, hypertension, myocardial infarction, chronic kidney disease. Surgical history consists of multiple percutaneous interventions with stent, aortic valve replacement, pacemaker. Patient was recently admitted for cardiac workup and discharged on 03/04/18. For the last several days he has noticed a worsening pain, swelling, erythema of his left arm and elbow. He denies any trauma to the area other than IV placement in the left antecubital fossa during hospital admission. He does have a remote history of septic bursitis in that joint with bursa removal. Patient also complained of fever and chills, but denied chest pain or shortness of breath or abdominal pain or nausea or vomiting or syncope. Due to his multiple comorbidities and history of complicated infections he was admitted to the hospital service. Past Med Surg Social Fam HX - Past Medical History Medical history: arthritis, atrial fibrillation, CVA, diabetes, GERD, hyperlipidemia, hypertension, myocardial infarction, renal disease, TIA, valvular heart disease Additional medical history: pacemaker dependent Psychiatric history: no psych history - Past Surgical History Surgical History: angioplasty/stent, carotid endarterectomy, cholecystectomy, heart valve replacement, orthopedic, other, pacemaker Additional surgical history: EYE hemorrhage. Heart Stents x 7. throat. bilaterlal feet. left toe amputation, aortic valve - Social History Smoking Status: Never smoker Smokeless Tobacco Status: No Alcohol use: none Drug use: none - Family History Mother Living Status: Still Living Hx Family Cardiac Disorders: Yes (Heart Disease) Hx Family Endocrine Disorder: Yes (DM) Father Living Status: Hx Family Cardiac Disorders: Yes Hx Family Endocrine Disorder: Yes (DM) Internal Medicine - H&P: Meds Ammonium Lactate [Amlactin] 1 appl TP BID 04/14/17 [History] Clopidogrel [Plavix] 75 mg PO DAILY 04/14/17 [History] Furosemide [Lasix] 40 mg PO DAILY 04/14/17 [History] HYDROcodone/Acet 10/325 mg [[place] 10-325 mg] 1 - 2 tab PO Q6H PRN 04/14/17 [ History] Metoprolol Tartrate [Lopressor] 50 mg PO BID 04/14/17 [History] Nitroglycerin [Nitrostat] 0.4 mg SL Q5M PRN 04/14/17 [History] Nortriptyline [Pamelor] 25 - 50 mg PO HS 04/14/17 [History] Pantoprazole Sodium [Protonix] 40 mg PO BID 04/14/17 [History] Potassium Chloride [Klor-Con 10] 10 meq PO DAILY 04/14/17 [History] Ranolazine [Ranexa] 1,000 mg PO BID 04/14/17 [History] Subcutaneous Insulin Pump [T:Slim] 0 units MC AD 04/14/17 [History] Valsartan/Hydrochlorothiazide [Diovan Hct 320-25 mg Tablet] 1 tab PO DAILY 04/14 [History] cloNIDine HCl [Clonidine HCl] 0.2 mg PO TID PRN 04/14/17 [History] Atorvastatin [Lipitor] 40 mg PO HS #30 tablet 05/28/17 [Rx] Gabapentin [Neurontin] 100 mg PO TID 03/02/18 [History] Warfarin Sodium [Warfarin Sodium] 6 mg PO Q48H 03/09/18 [History] Warfarin [Coumadin] 5 mg PO Q48H 03/09/18 [History] 3 Allergy/AdvReac Type Severity Reaction Status Date / Time ampicillin Allergy Hives Verified 03/09/18 19:59 carvedilol [From Coreg] Allergy Swelling Verified 03/09/18 19:59 of Lip/Tongue/Throat Hydromorphone [From Dilaudid] AdvReac Vomiting Verified 03/09/18 19:59 sulfamethoxazole AdvReac See Verified 03/09/18 19:59 [From Bactrim] Comments trimethoprim [From Bactrim] AdvReac See Verified 03/09/18 19:59 Comments All Systems PM: A 10-system review of systems was performed and is negative for pertinent findings except as documented above in the HPI. - Constitutional Constitutional: chills, fever(s), no fatigue, no falls, no malaise, no night sweats - EENT Eyes: no change in vision - Cardiovascular Cardiovascular ROS IM: no chest pain, no dyspnea on exertion, no syncope - Respiratory Respiratory: no cough, no excessive phlegm production - Gastrointestinal Gastrointestinal: no abdominal pain, no diarrhea, no vomiting - Genitourinary Genitourinary ROS male: no urinary frequency, no urinary hesitancy, no urinary incontinence, no urinary urgency - Musculoskeletal Musculoskeletal ROS IM: joint swelling, no deformity, no numbness, no tingling - Integumentary Integumentary IM: erythema, no pruritus, no rash, no skin ulcer - Neurological Neurological ROS: no abnormal speech, no focal weakness, no headache(s) - Psychiatric Psychiatric: no confusion - Constitutional Vitals: Temp Pulse Resp BP Pulse Ox 98.5 F 81 18 189/93 97 03/09/18 19:59 03/09/18 22:43 03/09/18 21:31 03/09/18 22:43 03/09/18 22:43 Exam: Patient in no acute distress, alert and oriented 3 Cranial nerves II through XII intact Heart in tachycardic rate and paced rhythm Lungs clear to auscultation bilaterally Abdomen obese and soft and nontender with normal bowel sounds present Left upper extremity erythematous and warm on the dorsal aspect from the elbow to mid arm Left upper extremity tender to palpation circumferentially from the elbow to the wrist There are no open wounds or sores apparent on the left upper extremity Range of motion and strength intact in left shoulder and elbow Range of motion, strength, sensation, capillary refill normal in all 5 digits of the left hand Bilateral lower extremities 2+ pitting edematous Skin warm and dry Internal Med - H&P Results - Labs CBC & Chem 7: 03/09/18 20:30 03/09/18 20:30 - Assessment and plan (1) Left arm cellulitis Current Visit: Yes Status: Acute Assessment and plan: Patient presented with acute onset left arm swelling, erythema, pain White count elevated 12.9, vitals within normal limits Patient does not currently meet sepsis criteria Recent IV in place in left upper extremity Patient has history of MRSA infection Plan Blood cultures ordered IV Vancomycin started Will continue to monitor cultures and clinical disposition (2) CAD (coronary artery disease) Current Visit: No Status: Chronic Assessment and plan: Patient with extensive cardiac history including [place], PCI, Pacemaker, AVR Patient not currently complaining of chest pain or shortness of breath Cardiology workup last week revealed no acute process Echo showed EF 55-60%, EKG paced rhythm Plan Continue home medications Atorvastatin, Clopidogrel, Metoprolol Qualifiers: Coronary Disease-Associated Artery/Lesion type: [place] artery [place] vs. transplanted heart: [place] heart Associated angina: angina presence unspecified Qualified Code(s): I25.10 - Atherosclerotic heart disease of [place] coronary artery without angina pectoris (3) Hypertension Current Visit: No Status: Chronic Assessment and plan: History of chronic hypertension managed on home medications Blood pressure stable here Continue home medications LAsix, HCTZ Qualifiers: Hypertension type: essential hypertension Qualified Code(s): I10 - Essential (primary) hypertension (4) History of aortic valve repair Current Visit: No Status: Chronic Assessment and plan: Last echo 03/03/18 showed mechanical aortic valve replacement functioning normally Continue Clopidogrel and PT adjusted warfarin (5) IDDM (insulin dependent diabetes mellitus) Current Visit: No Status: Chronic Assessment and plan: Patient is on insulin pump Glucose stable here Glucose Checks ACHS Diabetic diet (6) [id number] renal failure Current Visit: Yes Status: Acute Assessment and plan: Patient presented with creatinine 2.5 Baseline creatinine appears to approximate 2 Plan Gentle hydration 125ml/hr LR MIVF Avoid nephrotoxins and renally dose medications Continue to trend renal function Qualifiers: Acute renal failure type: unspecified Chronic kidney disease stage: stage 3 (moderate) Qualified Code(s): N17.9 - Acute kidney failure, unspecified; N18.3 - Chronic kidney disease, stage 3 (moderate) - Time Spent With Patient Total time spent is greater than 50% in coordination of care (as documented) at patient's floor/unit and/or counseling patient: <Cristian Bonilla - Last Filed: 03/10/18 01:01> Date of Encounter: 03/10/18 Internal Medicine - H&P: HPI History of present illness: Mr. Cabrera is a 67 year old male All Systems PM: A 10-system review of systems was performed and is negative for pertinent findings except as documented above in the HPI. - Constitutional Vitals: Temp Pulse Resp BP Pulse Ox 98.6 F 83 16 166/94 92 03/10/18 00:01 03/10/18 00:01 03/10/18 00:01 03/10/18 00:01 03/10/18 00:01 Internal Med - H&P Results - Labs CBC & Chem 7: 03/09/18 20:30 03/09/18 20:30 - Assessment and plan (1) Hypertension Current Visit: No Status: Chronic Qualifiers: Hypertension type: essential hypertension Qualified Code(s): I10 - Essential (primary) hypertension (2) IDDM (insulin dependent diabetes mellitus) Current Visit: No Status: Chronic (3) History of aortic valve repair Current Visit: No Status: Chronic (4) CAD (coronary artery disease) Current Visit: No Status: Chronic Qualifiers: Coronary Disease-Associated Artery/Lesion type: [place] artery [place] vs. transplanted heart: [place] heart Associated angina: angina presence unspecified Qualified Code(s): I25.10 - Atherosclerotic heart disease of [place] coronary artery without angina pectoris (5) Left arm cellulitis Current Visit: Yes Status: Acute (6) [id number] renal failure Current Visit: Yes Status: Acute Qualifiers: Acute renal failure type: unspecified Chronic kidney disease stage: stage 3 (moderate) Qualified Code(s): N17.9 - Acute kidney failure, unspecified; N18.3 - Chronic kidney disease, stage 3 (moderate) - Time Spent With Patient Total time spent is greater than 50% in coordination of care (as documented) at patient's floor/unit and/or counseling patient: - Attending Attestation Patient seen on 03/09. Ezra Cabrera is a 67 year old with a history of coronary artery disease status post 7 stents, mechanical aortic valve replacement on warfarin, atrial fibrillation, heart failure with pacemaker, hypertension, hyperlipidemia, CVA, diabetes with peripheral vascular disease and kidney disease who was recently admitted here for chest pain evaluation and ACS was ruled out. He was discharged on Friday. He comes in now with a complaint of swelling and pain in his left forearm that has extended up to his arm. He says the pain started on the day he was discharged in the area of the peripheral IV line he had in place at the time. He does relate a prior history of staphylococcal skin and soft tissue infections in the past. Over the past few days he has not been feeling feverish with chills and the pain has been increasing accompanied by more swelling and redness in his left arm. Arrival he was clinically and hemodynamically stable. Afebrile. CT scan done shows soft tissue edema present on the dorsal aspect of the left forearm extending into the olecranon and elbow soft tissues most predominantly affecting the forearm. Physical exam remarkable for well-developed man lying comfortably in bed in no acute distress. Chest clear to auscultation. Click noted on cardiac auscultation. Left forearm is circumferentially larger than the right with notable erythema on the medial aspect extending up into the distal arm and exquisitely tender to palpation. No focal abscesses identified. Labs remarkable for white count of 12.9. We will admit for left arm non-purulent cellulitis in a high risk patient who has mechanical valve and a pacemaker in place. Will require systemic antibiotics; suspect staph or strep in etiology. Obtain 2 sets of peripheral blood cultures and continue vancomycin high-dose. Follow blood cultures to ensure there is no concomitant bacteremia as this would warrant surgical evaluation of his pacemaker and mechanical valve. For now he may continue on warfarin to be dosed by pharmacy. Arm elevation. Cold compresses. Continue IV fluids and repeat CBC. Mild hyponatremia should rectify with fluid resuscitation. Resume cardiac medications.
[2018-03-10] MEDS ORDERED: Naloxone 0.4 MG/ML INJ IVP PRN (00:30)
[2018-03-10] MEDS: 0.9 % Sodium Chloride 1,000 ML IVC SCH ×3 (02:17→18:46)
[2018-03-10 06:18] LABS: Basophils # 0.1 K/mcL (0.0-0.2); Basophils % 0.7 %; Eosinophils # 0.2 K/mcL (0.0-0.6); Eosinophils % 1.9 %; Hematocrit 36.9 % (37.5-50.1); Hemoglobin 12.2 g/dL (12.9-16.9); Immature Granulocytes % 0.5 % (0-4); Lymphocytes # 1.6 K/mcL (0.6-4.6); Lymphocytes % 13.9 %; Mean Corpuscular HGB Conc 33.1 g/dL (31.6-35.5); Mean Corpuscular Hemoglobin 31.5 pg (28.0-33.3); Mean Corpuscular Volume 95.3 fL (83.0-100.0); Mean Platelet Volume 10.1 fL (9.4-12.4); Monocytes # 1.8 K/mcL (0.0-1.3); Platelet Count 171 K/mcL (140-400); Red Blood Count 3.87 M/mcL (4.19-5.50); Red Cell Distribution Width 15.9 % (11.5-14.5)
[2018-03-10 06:21] LABS: INR 2.4; Prothrombin Time 26.7 Seconds (9.4-12.1)
[2018-03-10 06:41] LABS: Calcium 9.4 mg/dL (8.6-10.3); Potassium 3.5 mEq/L (3.5-5.1)
[2018-03-10] MEDS: hydroCHLOROthiazide 25 MG TABLET PO SCH (08:27)
[2018-03-10] MEDS: Valsartan 160 MG TABLET PO SCH (08:27)
[2018-03-10] MEDS: Ranolazine 500 MG TAB.ER.12H PO SCH ×2 (08:27→21:20)
[2018-03-10] MEDS: Gabapentin 100 MG CAPSULE PO SCH ×3 (08:28→21:20)
[2018-03-10] MEDS: Furosemide 40 MG TABLET PO SCH (08:28)
[2018-03-10] MEDS: *HR* HYDROcodone/Acet 10/325 mg TABLET PO PRN ×2 (08:36→18:27)
[2018-03-10] MEDS ORDERED: Vancomycin 1,750 MG in 0.9 % Sodium Chloride 250 ML IVPB SCH (09:00)
--- NOTE | 2018-03-10 11:05 | Internal Med Progress Note ---
Hospitalist Progress Note - Encounter Date of Encounter: 03/10/18 Time of Encounter: 11:03 - Subjective Interval History: Patient with history of multiple septic joint, MRSA infections, chronic and fibrillation, CVA, diabetes, high cholesterol, hypertension, CK D and AVR with mech valve patient was in the hospital about a week ago due to chest pain has cardiac workup and then discharged patient presented with left arm pain erhythema consistent with left arm cellulitis started on vancomycin culture has been obtained results are pending - Exam Vitals: Temp Pulse Resp BP Pulse Ox 98.5 F 91 18 146/66 95 03/10/18 10:29 03/10/18 10:29 03/10/18 10:29 03/10/18 10:29 03/10/18 10:29 Exam: Patient in no acute distress, alert and oriented 3 Cranial nerves II through XII intact Heart in tachycardic rate and paced rhythm Lungs clear to auscultation bilaterally Abdomen obese and soft and nontender with normal bowel sounds present Left upper extremity erythematous and warm on the dorsal aspect from the elbow to mid arm Left upper extremity tender to palpation circumferentially from the elbow to the wrist There are no open wounds or sores apparent on the left upper extremity Range of motion and strength intact in left shoulder and elbow Range of motion, strength, sensation, capillary refill normal in all 5 digits of the left hand Bilateral lower extremities 2+ pitting edematous Skin warm and dry - Assessment and Plan (1) Hypertension Current Visit: No Status: Chronic Assessment and Plan: Chronic not well controlled we will adjust home medication (2) Atrial fibrillation Current Visit: No Status: Chronic Assessment and Plan: Chronic rate controlled (3) History of CVA (cerebrovascular accident) Current Visit: No Status: Chronic (4) IDDM (insulin dependent diabetes mellitus) Current Visit: No Status: Chronic Assessment and Plan: Continue on current sliding scale (5) Hyperlipidemia Current Visit: No Status: Chronic (6) History of aortic valve repair Current Visit: No Status: Chronic Assessment and Plan: Patient had a cardiac workup last week echo valve is normal with normal LV function (7) Anticoagulated on Coumadin Current Visit: No Status: Chronic (8) Diabetes mellitus Current Visit: No Status: Chronic (9) Left arm cellulitis Current Visit: Yes Status: Acute Assessment and Plan: Patient started on vancomycin CT of the arm shows no subcutaneous extension , no fluid collection to suggest abscess - Time Spent with Patient Total time spent is greater than 50% in coordination of care (as documented) at patient's floor/unit and/or counseling patient: Internal Medicine: Result - Labs CBC & Chem 7: 03/10/18 06:02 03/10/18 06:02 Labs: Short CBC 03/10/18 Range/Units 06:02 WBC 11.7 H (4.3-11.1) K/mcL Hgb 12.2 L (12.9-16.9) g/dL Hct 36.9 L (37.5-50.1) % Plt Count 171 (140-400) K/mcL Neutrophils # 8.0 (1.6-8.9) K/mcL BMP 03/10/18 06:02 Sodium 136 Potassium 3.5 Chloride 102 Carbon Dioxide 25 BUN 35 H Creatinine 1.99 H Glucose 113 H Calcium 9.4 - ABG Interpretation ABG results: PT/INR, D-dimer PT 26.7 Seconds (9.4-12.1) H 03/10/18 06:02 Consult Discharge Plan - Plan Referrals: Delta Godfrey MD [Primary Care Provider] - (1) Hypertension Qualifiers: Hypertension type: essential hypertension Qualified Code(s): I10 - Essential (primary) hypertension (2) Atrial fibrillation Qualifiers: Atrial fibrillation type: chronic Qualified Code(s): I48.2 - Chronic atrial fibrillation (5) Hyperlipidemia Qualifiers: Hyperlipidemia type: pure hypercholesterolemia Qualified Code(s): E78.00 - Pure hypercholesterolemia, unspecified; E78.0 - Pure hypercholesterolemia (8) Diabetes mellitus Qualifiers: Diabetes mellitus type: type 2 Diabetes mellitus [facility] insulin use: with [facility] use Diabetes mellitus complication status: without complication Qualified Code(s): E11.9 - Type 2 diabetes mellitus without complications; Z79.4 - long-term (current) use of insulin
--- NOTE | 2018-03-10 11:52 | Infectious Disease Consult ---
Date of Encounter: 03/10/18 Time of Encounter: 11:49 Assessment and Plan (1) Left arm cellulitis Status: Acute Assessment and plan: Location: Left arm. Causative organism: Unclear. Etiology: likely secondary to recent IV insertion. The patient had two SIRS criteria on admission. WBC is trending down. Tachycardia has resolved. CT of the LUE showed soft tissue swelling, but no abscess or OM. Blood cultures drawn 03/09/18 x2 sets and 03/10/18 x 2 sets are pending. Continue Vancomycin IV. Pharmacy to dose. Goal trough ~15. Duration of treatment depends on the clinical picture. Monitor renal function and for drug toxicity and dose-adjust antibiotics. (2) Superficial thrombophlebitis of left upper extremity Status: Acute Assessment and plan: Venous doppler study revealed a superficial venous thrombosis in the left cephalic vein at the left AC only. Supportive care per the primary team. (3) [id number] renal failure Status: Acute Assessment and plan: Serum creatinine 2.53 on admission. Improved. Continue to trend. Dose-adjust medications. Avoid nephrotoxins as able. Need to monitor Vanc levels closely. Qualifiers: Acute renal failure type: unspecified Chronic kidney disease stage: stage 3 (moderate) Qualified Code(s): N17.9 - Acute kidney failure, unspecified; N18.3 - Chronic kidney disease, stage 3 (moderate) (4) History of aortic valve repair Status: Chronic (5) Hypertension Status: Chronic Qualifiers: Hypertension type: essential hypertension Qualified Code(s): I10 - Essential (primary) hypertension (6) Atrial fibrillation Status: Chronic Qualifiers: Atrial fibrillation type: chronic Qualified Code(s): I48.2 - Chronic atrial fibrillation (7) IDDM (insulin dependent diabetes mellitus) Status: Chronic Assessment and plan: Recommend aggressive glucose monitoring and control to promote healing and prevent re-infection. Management per the patient with his insulin pump. (8) CAD (coronary artery disease) Status: Chronic Qualifiers: Coronary Disease-Associated Artery/Lesion type: [place] artery [place] vs. transplanted heart: [place] heart Associated angina: angina presence unspecified Qualified Code(s): I25.10 - Atherosclerotic heart disease of [place] coronary artery without angina pectoris Infectious Disease HPI - Data of Consult Patient: known to practice within the last 3 years Consult date: 03/10/18 Requesting Physician: Renetta Mandujano MD Primary Care Provider: Delta Godfrey MD - Consult Narrative Reason for consult: LUE cellulitis History of present illness: Mr. Cabrera is a 67 year old male with past medical history of A. fib, CVA, diabetes, GERD, hyperlipidemia, hypertension, chronic kidney disease, aortic mechanical valve replacement, and pacemaker. The patient was initially a hospital March 09 for left arm cellulitis and superficial thrombophlebitis. We are consulted March 10 for antibiotic recommendations for left arm cellulitis. Briefly, the patient is a 67-year-old male, known to the ID services we have been consulted on his case in the past. Back in 2016, the patient was treated for osteoarthritis of the left patella with 6 weeks of IV antibiotics followed by 4 weeks of oral antibiotics. Clinically he improved and completed his treatment. Apparently, the patient was hospitalized last week for a cardiac workup. He had a left before meals IV placed and when he went home he noticed that the left elbow being had become red and swollen and tender. Upon arrival to the ER, the patient was tachycardic, but was otherwise hemodynamically stable. He did have leukocytosis with a normal differential. Serum creatinine was elevated consistent with his chronic kidney disease. Blood cultures were obtained 2 sets. He had a left elbow x-ray that was negative. He had a left upper extremity CT scan that showed dorsal soft tissue edema throughout the forearm and elbow soft tissues. He had venous Doppler study that showed a superficial venous thrombosis of the cephalic vein at the left before meals only. He was started on Vanco and Clindamycin and admitted to the hospital for further evaluation. Since admission, the patient has remained afebrile hemodynamically stable. His white blood cell count is trending down. His kidney function is improved. An additional 2 sets of blood cultures were obtained today. Currently, he is on IV vancomycin. We have asked to evaluate and make further recommendations. During my exam today, the patient endorses a history as stated above. Patient states that when he left the hospital last he began to experience fatigue and malaise and generalized weakness. He reported subjective fevers and chills. Denies any rigors. Denies headache or neck pain. Denies any chest pain, shortness of breath. He reports a dry hacking cough. Denies any nausea or vomiting or diarrhea, but does report a poor appetite. He denies any abdominal pain or urinary complaints. He reports redness, swelling, pain, and warmth to the left upper extremity extending from the wrist to the upper aspect of the left arm. He denies any open sores or lesions. He denies any oral thrush or skin rashes. The patient lives at home with his . He is retired. He denies any tobacco , alcohol, or illicit drug use. He denies any recent travel outside the [facility]. He denies any chronic infectious diseases. He denies any animal exposure including any bites or scratches. CC: Renetta Mandujano MD Past Med Surg Social Fam HX - Past Medical History Attestation: Yes The following information was validated with the patient. Source: patient, old records reviewed, nursing notes reviewed Medical history: arthritis, atrial fibrillation, CVA, diabetes, GERD, hyperlipidemia, hypertension, myocardial infarction, renal disease, TIA, valvular heart disease Additional medical history: pacemaker dependent Psychiatric history: no psych history - Past Surgical History Surgical History: angioplasty/stent, carotid endarterectomy, cholecystectomy, heart valve replacement, orthopedic, other, pacemaker Additional surgical history: EYE hemorrhage. Heart Stents x 7. throat. bilaterlal feet. left toe amputation, aortic valve - Social History Smoking Status: Never smoker Smokeless Tobacco Status: No Alcohol use: none Drug use: none Occupational status: retired Current living situation: Home, With Family Activity Level: Independent ambulation Recent Out of Country Travel Within the Last 8 Weeks: No Exposure or Possible Exposure to Illness During Travel: No - Family History Mother Living Status: Still Living Hx Family Cardiac Disorders: Yes (Heart Disease) Hx Family Endocrine Disorder: Yes (DM) Father Living Status: Hx Family Cardiac Disorders: Yes Hx Family Endocrine Disorder: Yes (DM) Infectious Disease-CN:Meds Ammonium Lactate [Amlactin] 1 appl TP BID 04/14/17 [History] Clopidogrel [Plavix] 75 mg PO DAILY 04/14/17 [History] Furosemide [Lasix] 40 mg PO DAILY 04/14/17 [History] HYDROcodone/Acet 10/325 mg [[place] 10-325 mg] 1 - 2 tab PO Q6H PRN 04/14/17 [ History] Metoprolol Tartrate [Lopressor] 50 mg PO BID 04/14/17 [History] Nitroglycerin [Nitrostat] 0.4 mg SL Q5M PRN 04/14/17 [History] Nortriptyline [Pamelor] 25 - 50 mg PO HS 04/14/17 [History] Pantoprazole Sodium [Protonix] 40 mg PO BID 04/14/17 [History] Potassium Chloride [Klor-Con 10] 10 meq PO DAILY 04/14/17 [History] Ranolazine [Ranexa] 1,000 mg PO BID 04/14/17 [History] Subcutaneous Insulin Pump [T:Slim] 0 units MC AD 04/14/17 [History] Valsartan/Hydrochlorothiazide [Diovan Hct 320-25 mg Tablet] 1 tab PO DAILY 04/14 [History] cloNIDine HCl [Clonidine HCl] 0.2 mg PO TID PRN 04/14/17 [History] Atorvastatin [Lipitor] 40 mg PO HS #30 tablet 05/28/17 [Rx] Gabapentin [Neurontin] 100 mg PO TID 03/02/18 [History] Warfarin Sodium 6 mg PO Q48H 03/09/18 [History] Warfarin [Coumadin] 5 mg PO Q48H 03/09/18 [History] Cephalexin [Keflex] 500 mg PO Q6H #40 capsule 03/13/18 [Rx] Doxycycline 100 mg PO BID #20 capsule 03/13/18 [Rx] Lactobacillus [Culturelle] 1 each PO BID #30 cap.sprink 03/13/18 [Rx] 3 Allergy/AdvReac Type Severity Reaction Status Date / Time ampicillin Allergy Hives Verified 03/09/18 19:59 carvedilol [From Coreg] Allergy Swelling Verified 03/09/18 19:59 of Lip/Tongue/Throat Hydromorphone [From Dilaudid] AdvReac Vomiting Verified 03/09/18 19:59 sulfamethoxazole AdvReac See Verified 03/09/18 19:59 [From Bactrim] Comments trimethoprim [From Bactrim] AdvReac See Verified 03/09/18 19:59 Comments All systems: reviewed and no additional remarkable complaints except as stated Exam - Constitutional Vitals: Temp Pulse Resp BP Pulse Ox 98.5 F 91 18 146/66 95 03/10/18 10:29 03/10/18 10:29 03/10/18 10:29 03/10/18 10:29 03/10/18 10:29 General appearance: average body habitus, cooperative, no acute distress - Head Head exam: Present: atraumatic, normal inspection, normocephalic - Eye Eye exam: Present: EOMI, normal appearance, PERRL Pupils: Present: normal accommodation - ENT ENT exam: Present: mucous membranes moist - Neck Neck exam: Present: normal inspection - Respiratory Respiratory exam: Present: CTAB. Absent: rales, respiratory distress, rhonchi, wheezes - Cardiovascular Cardiovascular exam: Present: irregular rhythm. Absent: tachycardia - GI/Abdominal GI/Abdominal exam: Present: normal bowel sounds, soft. Absent: distended, tenderness - Extremities Exam Extremities exam: Present: tenderness (LUE). Absent: full ROM (Left elbow joint ROM minimally impaired.), normal inspection (Erythema, warmth, tenderness noted to the left lower and upper arm. Hand, shoulder, and elbow joint appear to be spared. ), pedal edema - Neurological Exam Neurological exam: Present: alert, oriented X3, no focal deficits - Psychiatric Psychiatric exam: Present: normal affect, normal mood - Skin Skin exam: Present: dry, intact, normal color, warm Infectious Disease CN: Results - Labs CBC & Chem 7: 03/13/18 01:31 03/13/18 01:31 Cultures: Cultures 03/10/18 06:02 Blood Culture - Preliminary Peripheral Venipuncture Culture is incubating and being continuously monitored for growth. Final report to follow. 03/10/18 06:02 Blood Culture - Preliminary Peripheral Venipuncture Culture is incubating and being continuously monitored for growth. Final report to follow. 03/09/18 22:37 Blood Culture - Preliminary Peripheral Venipuncture Culture is incubating and being continuously monitored for growth. Final report to follow. Consult Discharge Plan - Plan Referrals: Delta Godfrey MD [Primary Care Provider] - 03/17/18 1:15 pm Prescriptions: Cephalexin [Keflex] 500 mg PO Q6H #40 capsule Doxycycline 100 mg PO BID #20 capsule Lactobacillus [Culturelle] 1 each PO BID #30 cap.sprlibertad - Attending Attestation I examined this patient and my medical decision-making was reviewed with the Resident Physician. I agree with the documented findings, disposition and treatment plan as described except to the extent set forth below. This is an addendum to original report dictated by Tanya Miller CNP. Please refer to Tanya's note for full details. Patient is 67-year-old gentleman with past medical history mentioned below presented to [facility] with left upper extremity cellulitis. Patient previously has seen by us back in 2017 for osteomyelitis of the left patella and was treated with IV antibiotics for 6 weeks. Patient was recently admitted for cardiac reasons and had an IV line placed and he noticed there was swelling and erythema over the IV line was placed. Patient came in for evaluation was not to have superficial thrombophlebitis and cellulitis. CT scan of the left upper extremity showed dorsal soft tissue edema throughout the forearm and elbow soft tissues. Assessment and plan: Left arm cellulitis causative organism unclear with cellulitis and admission that has done resolved has been on vancomycin. Superficial thrombophlebitis left upper extremity History of prosthetic valve Recommendations: At this point continue vancomycin with goal vancomycin trough of 10-15 Monitor labs and for drug toxicity Await cultures to finalize If clinically does well we will switch him to oral antibiotics Patient is allergic to Bactrim and ampicillin so we will probably put him on a different oral antibiotic Duration of treatment depends on clinical picture
[2018-03-10] MEDS: Subcutaneous Insulin Pump [T:Slim] SQ SCH (16:12)
[2018-03-10] MEDS ORDERED: *HR* Warfarin 3 MG TABLET PO ONE (18:00)
[2018-03-10] MEDS ORDERED: Warfarin perPT PO PRN (18:00)
[2018-03-11 04:05] LABS: Hematocrit 35.7 % (37.5-50.1); Hemoglobin 11.4 g/dL (12.9-16.9); Mean Corpuscular HGB Conc 31.9 g/dL (31.6-35.5); Mean Corpuscular Hemoglobin 31.1 pg (28.0-33.3); Mean Corpuscular Volume 97.5 fL (83.0-100.0); Platelet Count 148 K/mcL (140-400); Red Blood Count 3.66 M/mcL (4.19-5.50); Red Cell Distribution Width 15.6 % (11.5-14.5)
[2018-03-11 04:11] LABS: INR 2.8; Prothrombin Time 31.3 Seconds (9.4-12.1)
[2018-03-11 04:23] LABS: Calcium 8.8 mg/dL (8.6-10.3); Potassium 3.8 mEq/L (3.5-5.1)
[2018-03-11] MEDS: 0.9 % Sodium Chloride 1,000 ML IVC SCH ×3 (04:55→23:59)
--- NOTE | 2018-03-11 09:35 | Internal Med Progress Note ---
Hospitalist Progress Note - Encounter Date of Encounter: 03/11/18 Time of Encounter: 09:39 - Subjective Interval History: Patient with history of multiple septic joint, MRSA infections, chronic and fibrillation, CVA, diabetes, high cholesterol, hypertension, CK D and AVR with mech valve patient was in the hospital about a week ago due to chest pain has cardiac workup and then discharged patient presented with left arm pain erhythema consistent with left arm cellulitis started on vancomycin culture has been obtained results are pending 03/11 Patient seen and examined the left arm cellulitis appears much better left arm swelling has also improved appreciate ID input - Exam Vitals: Temp Pulse Resp BP Pulse Ox 98.3 F 71 14 160/87 100 03/11/18 07:51 03/11/18 07:51 03/11/18 07:51 03/11/18 07:51 03/11/18 07:51 Exam: Patient in no acute distress, alert and oriented 3 Cranial nerves II through XII intact Heart in tachycardic rate and paced rhythm Lungs clear to auscultation bilaterally Abdomen obese and soft and nontender with normal bowel sounds present Left upper extremity erythematous and warm on the dorsal aspect from the elbow to mid arm Left upper extremity tender to palpation circumferentially from the elbow to the wrist There are no open wounds or sores apparent on the left upper extremity Range of motion and strength intact in left shoulder and elbow Range of motion, strength, sensation, capillary refill normal in all 5 digits of the left hand Bilateral lower extremities 2+ pitting edematous Skin warm and dry - Assessment and Plan (1) Hypertension Current Visit: No Status: Chronic Assessment and Plan: Chronic and better controlled (2) Atrial fibrillation Current Visit: No Status: Chronic (3) History of CVA (cerebrovascular accident) Current Visit: No Status: Chronic Assessment and Plan: No recent event (4) IDDM (insulin dependent diabetes mellitus) Current Visit: No Status: Chronic Assessment and Plan: We will continue on current sliding scale and home medication (5) Hyperlipidemia Current Visit: No Status: Chronic (6) History of aortic valve repair Current Visit: No Status: Chronic Assessment and Plan: Blood culture is negative so far valve function normal per recent echocardiogram (7) Anticoagulated on Coumadin Current Visit: No Status: Chronic Assessment and Plan: INR is therapeutic (8) Diabetes mellitus Current Visit: No Status: Chronic (9) Left arm cellulitis Current Visit: Yes Status: Acute Assessment and Plan: Clinically much better appreciate infectious disease input will continue on vancomycin (10) [id number] kidney injury Current Visit: Yes Status: Acute Assessment and Plan: Acute on chronic kidney injury will continue IV hydration creatinine continued to improve - Time Spent with Patient Total time spent is greater than 50% in coordination of care (as documented) at patient's floor/unit and/or counseling patient: Internal Medicine: Result - Labs CBC & Chem 7: 03/11/18 03:48 03/11/18 03:48 Labs: Short CBC 03/11/18 Range/Units 03:48 WBC 10.0 (4.3-11.1) K/mcL Hgb 11.4 L (12.9-16.9) g/dL Hct 35.7 L (37.5-50.1) % Plt Count 148 (140-400) K/mcL BMP 03/11/18 03:48 Sodium 138 Potassium 3.8 Chloride 104 Carbon Dioxide 25 BUN 36 H Creatinine 1.86 H Glucose 111 H Calcium 8.8 - ABG Interpretation ABG results: PT/INR, D-dimer PT 31.3 Seconds (9.4-12.1) H 03/11/18 03:48 Consult Discharge Plan - Plan Referrals: Delta Godfrey MD [Primary Care Provider] - (1) Hypertension Qualifiers: Hypertension type: essential hypertension Qualified Code(s): I10 - Essential (primary) hypertension (2) Atrial fibrillation Qualifiers: Atrial fibrillation type: chronic Qualified Code(s): I48.2 - Chronic atrial fibrillation (5) Hyperlipidemia Qualifiers: Hyperlipidemia type: pure hypercholesterolemia Qualified Code(s): E78.00 - Pure hypercholesterolemia, unspecified; E78.0 - Pure hypercholesterolemia (8) Diabetes mellitus Qualifiers: Diabetes mellitus type: type 2 Diabetes mellitus usp insulin use: with exterminator use Diabetes mellitus complication status: without complication Qualified Code(s): E11.9 - Type 2 diabetes mellitus without complications; Z79.4 - FDC (current) use of insulin (10) [id number]-yrnidfs kidney injury Qualifiers: Acute renal failure type: unspecified Chronic kidney disease stage: unspecified stage Qualified Code(s): N17.9 - Acute kidney failure, unspecified ; N18.9 - Chronic kidney disease, unspecified
[2018-03-11] MEDS: hydroCHLOROthiazide 25 MG TABLET PO SCH (10:04)
[2018-03-11] MEDS: Gabapentin 100 MG CAPSULE PO SCH ×3 (10:04→20:38)
[2018-03-11] MEDS: Valsartan 160 MG TABLET PO SCH (10:04)
[2018-03-11] MEDS: Ranolazine 500 MG TAB.ER.12H PO SCH ×2 (10:04→20:38)
[2018-03-11] MEDS: Furosemide 40 MG TABLET PO SCH (10:04)
[2018-03-11] MEDS: *HR* HYDROcodone/Acet 10/325 mg TABLET PO PRN ×2 (13:10→20:48)
--- NOTE | 2018-03-11 13:56 | Infectious Disease Progress No ---
Date of Encounter: 03/11/18 Time of Encounter: 12:00 - Assessment and Plan (1) Left arm cellulitis Current Visit: Yes Status: Acute Location: Left arm. Causative organism: Unclear. Etiology: likely secondary to recent IV insertion. The patient had two SIRS criteria on admission. WBC is normal. Tachycardia has resolved. CT of the LUE showed soft tissue swelling, but no abscess or OM. Blood cultures drawn 03/09/18 x2 sets are NGTD and 03/10/18 x 2 sets are pending. Continue Vancomycin IV. Pharmacy to dose. Goal trough ~15. (day 3) Duration of treatment depends on the clinical picture, but likely a total of 14 days. Recommend switching to PO Keflex and doxycycline when ready for discharge to complete course of treatment. Monitor renal function and for drug toxicity and dose-adjust antibiotics. No further recommendations from the ID team. We will sign off. Please re- consult if needed. (2) Superficial thrombophlebitis of left upper extremity Current Visit: Yes Status: Acute Venous doppler study revealed a superficial venous thrombosis in the left cephalic vein at the left AC only. Supportive care per the primary team. (3) Dffmj-vx-qhuwzrj renal failure Current Visit: Yes Status: Acute Serum creatinine 2.53 on admission. Improved. Continue to trend. Dose-adjust medications. Avoid nephrotoxins as able. Need to monitor Vanc levels closely. Qualifiers: Acute renal failure type: unspecified Chronic kidney disease stage: stage 3 (moderate) Qualified Code(s): N17.9 - Acute kidney failure, unspecified; N18.3 - Chronic kidney disease, stage 3 (moderate) (4) History of aortic valve repair Current Visit: No Status: Chronic (5) Hypertension Current Visit: No Status: Chronic Qualifiers: Hypertension type: essential hypertension Qualified Code(s): I10 - Essential (primary) hypertension (6) Atrial fibrillation Current Visit: No Status: Chronic Qualifiers: Atrial fibrillation type: chronic Qualified Code(s): I48.2 - Chronic atrial fibrillation (7) IDDM (insulin dependent diabetes mellitus) Current Visit: No Status: Chronic Recommend aggressive glucose monitoring and control to promote healing and prevent re-infection. Management per the patient with his insulin pump. (8) CAD (coronary artery disease) Current Visit: No Status: Chronic Qualifiers: Coronary Disease-Associated Artery/Lesion type: [place] artery [place] vs. transplanted heart: [place] heart Associated angina: angina presence unspecified Qualified Code(s): I25.10 - Atherosclerotic heart disease of [place] coronary artery without angina pectoris - Subjective Interval history: Patient seen and examined. No acute events noted overnight. Patient states overall he does not feel much better today, but does report some mild improvement in the left upper extremity. Reports subjective chills and fevers, but denies any rigors. Denies any chest pain or shortness of breath or cough. Denies nausea, vomiting, diarrhea, or constipation. Denies any oral thrush or new skin lesions. States appetite is good. Denies abdominal pain or urinary complaints. Infect Dis PN-Objective Data - Labs CBC & Chem 7: 03/11/18 03:48 03/11/18 03:48 Labs: Laboratory Results - last 24 hr 03/10/18 03/10/18 03/10/18 08:18 16:26 20:22 WBC RBC Hgb Hct MCV MCH MCHC RDW Plt Count MPV PT INR Sodium Potassium Chloride Carbon Dioxide BUN Creatinine Est GFR ( Amer) Est GFR (Non-Af Amer) BUN/Creatinine Ratio Glucose POC Glucose 106 H 165 H 260 H Calculated Osmolality Calcium Vancomycin Trough 03/10/18 03/11/18 03/11/18 22:59 03:48 03:48 WBC 10.0 RBC 3.66 L Hgb 11.4 L Hct 35.7 L MCV 97.5 MCH 31.1 MCHC 31.9 RDW 15.6 H Plt Count 148 MPV 10.0 PT 31.3 H INR 2.8 Sodium Potassium Chloride Carbon Dioxide BUN Creatinine Est GFR ( Amer) Est GFR (Non-Af Amer) BUN/Creatinine Ratio Glucose POC Glucose Calculated Osmolality Calcium Vancomycin Trough 13 H 03/11/18 03/11/18 03/11/18 03:48 07:56 12:06 WBC RBC Hgb Hct MCV MCH MCHC RDW Plt Count MPV PT INR Sodium 138 Potassium 3.8 Chloride 104 Carbon Dioxide 25 BUN 36 H Creatinine 1.86 H Est GFR ( Amer) 44 L Est GFR (Non-Af Amer) 37 L BUN/Creatinine Ratio 19 Glucose 111 H POC Glucose 80 179 H Calculated Osmolality 295 Calcium 8.8 Vancomycin Trough Cultures: Cultures 03/10/18 06:02 Blood Culture - Preliminary Peripheral Venipuncture Culture is incubating and being continuously monitored for growth. Final report to follow. 03/10/18 06:02 Blood Culture - Preliminary Peripheral Venipuncture Culture is incubating and being continuously monitored for growth. Final report to follow. 03/09/18 22:37 Blood Culture - Preliminary Peripheral Venipuncture Culture is incubating and being continuously monitored for growth. Final report to follow. Exam - Constitutional Vitals: Temp Pulse Resp BP Pulse Ox 98.7 F 70 15 178/83 96 03/11/18 12:05 03/11/18 12:05 03/11/18 12:05 03/11/18 12:05 03/11/18 12:05 General appearance: average body habitus, cooperative, no acute distress - Head Head exam: Present: atraumatic, normal inspection, normocephalic - Eye Eye exam: Present: EOMI, normal appearance, PERRL Pupils: Present: normal accommodation - ENT ENT exam: Present: mucous membranes moist - Neck Neck exam: Present: normal inspection - Respiratory Respiratory exam: Present: CTAB. Absent: rales, respiratory distress, rhonchi, wheezes - Cardiovascular Cardiovascular exam: Present: irregular rhythm. Absent: tachycardia - GI/Abdominal GI/Abdominal exam: Present: normal bowel sounds, soft. Absent: distended, tenderness - Extremities Exam Extremities exam: Present: tenderness (LUE). Absent: full ROM (Left elbow ROM minimally decreased.), joint swelling, normal inspection (Erythema noted to the LUE slightly improved. ), pedal edema - Neurological Exam Neurological exam: Present: alert, oriented X3, no focal deficits - Psychiatric Psychiatric exam: Present: normal affect, normal mood - Skin Skin exam: Present: dry, intact, normal color, warm Consult Discharge Plan - Plan Referrals: Delta Godfrey MD [Primary Care Provider] - - Attending Attestation I examined this patient and my medical decision-making was reviewed with the Resident Physician. I agree with the documented findings, disposition and treatment plan as described except to the extent set forth below.
[2018-03-11] MEDS ORDERED: *HR* Dextrose 50 % in Water (Syg) 50 ML SYRINGE IVP PRN (14:40)
[2018-03-11] MEDS ORDERED: Dextrose Gel 15 GM/37.5 ML TUBE PO PRN ×2 (14:40)
[2018-03-11] MEDS ORDERED: D5% in Water 1,000 ML IVC PRN (14:40)
[2018-03-11] MEDS: Subcutaneous Insulin Pump [T:Slim] SQ SCH (15:16)
[2018-03-11] MEDS ORDERED: *HR* Warfarin 5 MG TABLET PO ONE (18:00)
[2018-03-11] MEDS: Insulin LISPRO 300 UNITS/3 ML VIAL SQ SCH (18:32)
[2018-03-11] MEDS ORDERED: Insulin LISPRO 300 UNITS/3 ML VIAL SQ SCH (21:00)
[2018-03-12 01:36] LABS: INR 3.1; Prothrombin Time 34.8 Seconds (9.4-12.1)
[2018-03-12] MEDS: hydroCHLOROthiazide 25 MG TABLET PO SCH (08:10)
[2018-03-12] MEDS: Ranolazine 500 MG TAB.ER.12H PO SCH ×2 (08:10→20:51)
[2018-03-12] MEDS: Valsartan 160 MG TABLET PO SCH (08:10)
[2018-03-12] MEDS: Gabapentin 100 MG CAPSULE PO SCH ×3 (08:11→20:51)
[2018-03-12] MEDS: Insulin LISPRO 300 UNITS/3 ML VIAL SQ SCH (08:11)
[2018-03-12] MEDS: Furosemide 40 MG TABLET PO SCH (08:11)
--- NOTE | 2018-03-12 10:50 | Internal Med Progress Note ---
Hospitalist Progress Note - Encounter Date of Encounter: 03/12/18 Time of Encounter: 10:45 - Exam Vitals: Temp Pulse Resp BP Pulse Ox 97.9 F 69 15 179/98 98 03/12/18 07:31 03/12/18 07:31 03/12/18 07:31 03/12/18 07:31 03/12/18 07:31 Exam: Gen - Awake, alert, oriented x 3, no acute distress HEENT - NCAT, PERRLA, EOMI, hearing grossly intact, oropharynx benign CV - RRR, normal S1 and S2, no M/R/G, no BLE edema Resp - Normal WOB, CTAB, no W/R/R GI - Soft, NT/ND, no masses, normal bowel sounds, Skin - Warm, dry, left arm cellulitis with warmth and redness Psych - Normal mood and affect, no depression or anxiety - Assessment and Plan (1) Left arm cellulitis Current Visit: Yes Status: Acute Assessment and Plan: Patient presented with acute onset left arm swelling, erythema, pain White count elevated 12.9, vitals within normal limits Stiill has warmth, swelling and redness this am 03/12- Will add cefepime to vancomycin and monitor (2) Hypertension Current Visit: No Status: Chronic Assessment and Plan: History of chronic hypertension managed on home medications Blood pressure stable here Continue home medications LAsix, HCTZ (3) IDDM (insulin dependent diabetes mellitus) Current Visit: No Status: Chronic Assessment and Plan: Patient is on insulin pump Glucose stable here Glucose Checks ACHS Diabetic diet (4) History of aortic valve repair Current Visit: No Status: Chronic Assessment and Plan: Last echo 03/03/18 showed mechanical aortic valve replacement functioning normally Continue Clopidogrel and PT adjusted warfarin (5) CAD (coronary artery disease) Current Visit: No Status: Chronic Assessment and Plan: Patient with extensive cardiac history including VA, PCI, Pacemaker, AVR Patient not currently complaining of chest pain or shortness of breath Cardiology workup last week revealed no acute process Echo showed EF 55-60%, EKG paced rhythm Plan Continue home medications Atorvastatin, Clopidogrel, Metoprolol (6) Dqcwr-so-ghqqwcy renal failure Current Visit: Yes Status: Acute Assessment and Plan: Patient presented with creatinine 2.5 Baseline creatinine appears to approximate 2 Plan Gentle hydration 125ml/hr LR MIVF Avoid nephrotoxins and renally dose medications Continue to trend renal function - Time Spent with Patient Total time spent is greater than 50% in coordination of care (as documented) at patient's floor/unit and/or counseling patient: Internal Medicine: Result - Labs CBC & Chem 7: 03/11/18 03:48 03/11/18 03:48 - ABG Interpretation ABG results: PT/INR, D-dimer PT 34.8 Seconds (9.4-12.1) H 03/12/18 00:56 Consult Discharge Plan - Plan Referrals: Delta Godfrey MD [Primary Care Provider] - (2) Hypertension Qualifiers: Hypertension type: essential hypertension Qualified Code(s): I10 - Essential (primary) hypertension (5) CAD (coronary artery disease) Qualifiers: Coronary Disease-Associated Artery/Lesion type: [place] artery [place] vs. transplanted heart: [place] heart Associated angina: angina presence unspecified Qualified Code(s): I25.10 - Atherosclerotic heart disease of [place] coronary artery without angina pectoris (6) Jxpai-gu-wwhumdi renal failure Qualifiers: Acute renal failure type: unspecified Chronic kidney disease stage: stage 3 ( moderate) Qualified Code(s): N17.9 - Acute kidney failure, unspecified; N18.3 - Chronic kidney disease, stage 3 (moderate)
[2018-03-12] MEDS: Cefepime HCl 2,000 MG in Water for inj. (sterile) 20 ML 20 ML IVP SCH (11:44)
[2018-03-12] MEDS: 0.9 % Sodium Chloride 1,000 ML IVC SCH (11:45)
[2018-03-12] MEDS: Subcutaneous Insulin Pump [T:Slim] SQ SCH (14:29)
[2018-03-12] MEDS: *HR* HYDROcodone/Acet 10/325 mg TABLET PO PRN ×2 (14:33→20:58)
[2018-03-12] MEDS ORDERED: *HR* Warfarin 3 MG TABLET PO ONE (18:00)
[2018-03-13] MEDS: Cefepime HCl 2,000 MG in Water for inj. (sterile) 20 ML 20 ML IVP SCH (00:07)
[2018-03-13 01:55] LABS: Basophils # 0.1 K/mcL (0.0-0.2); Basophils % 0.6 %; Eosinophils # 0.2 K/mcL (0.0-0.6); Eosinophils % 1.6 %; Hematocrit 34.8 % (37.5-50.1); Hemoglobin 11.2 g/dL (12.9-16.9); Immature Granulocytes % 1.4 % (0-4); Lymphocytes # 1.2 K/mcL (0.6-4.6); Lymphocytes % 12.2 %; Mean Corpuscular HGB Conc 32.2 g/dL (31.6-35.5); Mean Corpuscular Hemoglobin 31.3 pg (28.0-33.3); Mean Corpuscular Volume 97.2 fL (83.0-100.0); Mean Platelet Volume 10.2 fL (9.4-12.4); Monocytes # 1.6 K/mcL (0.0-1.3); Monocytes % 16.2 %; Neutrophils # 6.9 K/mcL (1.6-8.9); Platelet Count 175 K/mcL (140-400); Red Blood Count 3.58 M/mcL (4.19-5.50); Red Cell Distribution Width 15.9 % (11.5-14.5)
[2018-03-13 02:01] LABS: INR 3.7; Prothrombin Time 42.3 Seconds (9.4-12.1)
[2018-03-13 02:12] LABS: Potassium 3.9 mEq/L (3.5-5.1)
[2018-03-13] MEDS: Valsartan 160 MG TABLET PO SCH (09:49)
[2018-03-13] MEDS: Ranolazine 500 MG TAB.ER.12H PO SCH (09:49)
[2018-03-13] MEDS: hydroCHLOROthiazide 25 MG TABLET PO SCH (09:49)
[2018-03-13] MEDS: Gabapentin 100 MG CAPSULE PO SCH ×2 (09:49→14:47)
[2018-03-13] MEDS: Furosemide 40 MG TABLET PO SCH (09:49)
[2018-03-13] MEDS: Subcutaneous Insulin Pump [T:Slim] SQ SCH (14:11)
[2018-03-13 15:25] VITALS: BP 148/48
--- NOTE | 2018-03-13 15:25 | Discharge Summary ---
Orders not resulted at time of discharge: Pending orders 03/10/18 06:02 Culture,Blood [BC] AM 0400 03/14/18 04:00 PT/INR [Prothrombin Time INR] [COAG] AM 0400 Vancomycin,Random Timed 03/15/18 04:00 PT/INR [Prothrombin Time INR] [COAG] AM 0400 03/16/18 04:00 PT/INR [Prothrombin Time INR] [COAG] AM 0400 03/17/18 04:00 PT/INR [Prothrombin Time INR] [COAG] AM 0400 03/18/18 04:00 PT/INR [Prothrombin Time INR] [COAG] AM 0400 Date of Encounter: 03/15/18 Time of Encounter: 02:00 - Discharge Diagnosis (1) Hypertension Priority: Secondary Status: Chronic Qualifiers: Hypertension type: essential hypertension Qualified Code(s): I10 - Essential (primary) hypertension (2) IDDM (insulin dependent diabetes mellitus) Priority: Secondary Status: Chronic (3) History of aortic valve repair Priority: Secondary Status: Chronic (4) CAD (coronary artery disease) Priority: Secondary Status: Chronic Qualifiers: Coronary Disease-Associated Artery/Lesion type: [place] artery [place] vs. transplanted heart: [place] heart Associated angina: angina presence unspecified Qualified Code(s): I25.10 - Atherosclerotic heart disease of [place] coronary artery without angina pectoris (5) Left arm cellulitis Priority: Primary Status: Acute (6) Idwms-vs-itjhatv renal failure Priority: Secondary Status: Acute Qualifiers: Acute renal failure type: unspecified Chronic kidney disease stage: stage 3 (moderate) Qualified Code(s): N17.9 - Acute kidney failure, unspecified; N18.3 - Chronic kidney disease, stage 3 (moderate) Hospital course: 67 year old male with past medical history of multiple septic joints, MRSA infection. Patient was recently admitted for cardiac workup and discharged on . For the last several days prior to admission ,he has noticed worsening pain, swelling, erythema of his left arm and elbow associated with fever or chills. He denies any trauma to the area other than IV placement in the left antecubital fossa during hospital admission. He does have a remote history of septic bursitis in that joint with bursa removal. Patient was made the hospital patient was started on empiric antibiotic treatment, infectious disease was consulted blood culture was done 2 which were negative. Patient condition has been getting better, discussed with ID recommended to follow up with primary care as an outpatient continue oral antibiotic, plan discussed with patient discussed with patient if patient has any recurrent fever or chills to come back to the hospital , counseling patient about follow-up with Coumadin clinic as soon as possible for INR recheck Discharge discussed with: patient, nurse - Time Spent with Patient Total time spent providing and/or coordinating discharge services: Greater than 30 minutes - Discharge Medications Prescriptions: Cephalexin [Keflex] 500 mg PO Q6H #40 capsule Doxycycline 100 mg PO BID #20 capsule Lactobacillus [Culturelle] 1 each PO BID #30 cap.[email or web address] Home Medications: Ammonium Lactate [Amlactin] 1 appl TP BID 04/14/17 [History] Clopidogrel [Plavix] 75 mg PO DAILY 04/14/17 [History] Furosemide [Lasix] 40 mg PO DAILY 04/14/17 [History] HYDROcodone/Acet 10/325 mg [[place] 10-325 mg] 1 - 2 tab PO Q6H PRN 04/14/17 [ History] Metoprolol Tartrate [Lopressor] 50 mg PO BID 04/14/17 [History] Nitroglycerin [Nitrostat] 0.4 mg SL Q5M PRN 04/14/17 [History] Nortriptyline [Pamelor] 25 - 50 mg PO HS 04/14/17 [History] Pantoprazole Sodium [Protonix] 40 mg PO BID 04/14/17 [History] Potassium Chloride [Klor-Con 10] 10 meq PO DAILY 04/14/17 [History] Ranolazine [Ranexa] 1,000 mg PO BID 04/14/17 [History] Subcutaneous Insulin Pump [T:Slim] 0 units MC AD 04/14/17 [History] Valsartan/Hydrochlorothiazide [Diovan Hct 320-25 mg Tablet] 1 tab PO DAILY 04/14 [History] cloNIDine HCl [Clonidine HCl] 0.2 mg PO TID PRN 04/14/17 [History] Atorvastatin [Lipitor] 40 mg PO HS #30 tablet 05/28/17 [Rx] Gabapentin [Neurontin] 100 mg PO TID 03/02/18 [History] Warfarin Sodium 6 mg PO Q48H 03/09/18 [History] Warfarin [Coumadin] 5 mg PO Q48H 03/09/18 [History] Cephalexin [Keflex] 500 mg PO Q6H #40 capsule 03/13/18 [Rx] Doxycycline 100 mg PO BID #20 capsule 03/13/18 [Rx] Lactobacillus [Culturelle] 1 each PO BID #30 cap.sprink 03/13/18 [Rx] Allergies/Adverse Reactions: 3 Allergy/AdvReac Type Severity Reaction Status Date / Time ampicillin Allergy Hives Verified 03/09/18 19:59 carvedilol [From Coreg] Allergy Swelling Verified 03/09/18 19:59 of Lip/Tongue/Throat Hydromorphone [From Dilaudid] AdvReac Vomiting Verified 03/09/18 19:59 sulfamethoxazole AdvReac See Verified 03/09/18 19:59 [From Bactrim] Comments trimethoprim [From Bactrim] AdvReac See Verified 03/09/18 19:59 Comments Date of admission: 03/09/18 22:35 Primary care physician: Delta Godfrey MD Consults: 03/10/18 11:01 Consult to Infectious Diseases [CONS] Routine Consulting Provider: Infectious Disease Nica Reason for Consult: left arm cellulitis has av mech valve Time Notified: 11:02 Call Completed: No - Constitutional Vitals: Temp Pulse Resp BP Pulse Ox 98 F 70 16 137/54 99 03/13/18 11:53 03/13/18 11:53 03/13/18 11:53 03/13/18 11:53 03/13/18 11:53 Exam: As above - Head Head exam: Present: atraumatic, normocephalic - Neck Neck exam general surgery: Present: supple, trachea midline. Absent: lymphadenopathy - Respiratory Respiratory exam: Present: CTAB. Absent: accessory muscle use, rales, rhonchi, wheezes - Cardiovascular Cardiovascular exam: Present: irregular rhythm, +S2. Absent: gallop, rubs - GI/Abdominal GI/Abdominal exam: Present: normal bowel sounds, soft, no peritoneal signs. Absent: distended, tenderness - Extremities Exam Extremities exam: Present: warm, radial pulses palpable and symmetrical. Absent : calf tenderness, cyanotic, pedal edema Additional comments: Elbow erythema and swelling resolved - Patient Status Disposition: Home, Self-Care Condition: Fair - Discharge Instructions Instructions: Cellulitis (DC) Follow Up With: Delta Godfrey MD [Primary Care Provider] - 03/17/18 1:15 pm
[2018-03-13] MEDS ORDERED: Aminoglycoside Consult 1 EACH MC ONE (18:31)
[2018-03-13] MEDS ORDERED: Cefepime HCl 2,000 MG in Water for inj. (sterile) 20 ML 20 ML IVP SCH (23:00)
== END 2018-03-13 18:32 | disposition home or self-care (01) ==
LOC: 3ANU 19:54 → EMEROOARM 19:54 → 3ANU 23:56
PROVIDERS: ADMIT Internal Medicine; ATTEND Internal Medicine